=== PATIENT | male | born 1985 | race Caucasian/White ===

== ENCOUNTER 2017-12-04 15:15 | Inpatient (IN) | payer MEDICAID, SELFPAY ==
[2017-12-04] VITALS (8 sets, daily range): BP systolic 123–136; BP diastolic 79–96; PULSE 65–71; RESP 16; TEMP 36.6–37.1; O2SAT 97–100; BMI 24.0; BMI 24.1
--- NOTE | 2017-12-04 15:47 | PCM.HP.STD ---
Problem List (1) History of infective endocarditis Status: Chronic (2) Hypertension Status: Chronic (3) Heroin abuse Status: Chronic History of Present Illness Date of Admission: 12/04/17 Chief Complaint: Opioid withdrawal. The patient is a 32 year old M with past medical history as mentioned above presented to [facility] office because of abdominal cramps, nausea, restlessness and anxiety. The patient has been using heroin for the last 6-7 years, initially was IV heroin and for the last few months, he has been snorting and smoking heroin. His last dose was last night. He complained of abdominal pain, described as abdominal cramps, generalized, mild to moderate, 3-4 out of 10 in severity, not radiating, associated with nausea without vomiting and without aggravating or relieving factors. Also, he complained of headache that has been going on for last 2 days without other associated symptoms. Reported restlessness and anxiety. He has a history of infective endocarditis back in 2015 for which he underwent open heart surgery but without valve replacement. He has a history of hypertension and he has been on Norvasc and losartan but he is not compliant with his medications. 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 At this time, vital signs are stable. He is being admitted for opioid withdrawal for medical stabilization. Past Medical History Past Medical History (Chronic Problems): Chronic Problems History of infective endocarditis (Chronic) Hypertension (Chronic) Heroin abuse (Chronic) Allergies No Known Allergies Allergy (Verified 04/03/17 00:38) Home Medications: Ambulatory Orders Medication Instructions Recorded Amlodipine [Norvasc] 10 mg PO DAILY 01/26/17 Losartan Potassium [Cozaar] 50 mg PO DAILY 01/26/17 Metoprolol Tartrate [Lopressor 100 mg PO BID 01/26/17 (Beta Dante)] Mirtazapine [Remeron] 15 mg PO QHS 01/26/17 Surgical History: - - Open heart surgery for endocarditis. Psychiatric History: No pertinent psych hx Lives: Spouse/ Significant Other Smoking Status: Current every day smoker Alcohol: None Drugs: Heroin - *Family History Maternal History Items: No pertinent history, - Paternal History Items: No pertinent history Review of Systems Constitutional: Denies: Anorexia, Chills, Fever, Weakness Eyes: Denies: Blurred vision, Double vision, Drainage, Redness HEENT: Denies: Difficulty Hearing, Ear Pain, Eye Pain, Nasal Congestion, Sore Throat Cardiovascular: Denies: Chest Pain, Chest Pressure, Chest Tightness, Heaviness, Light Headedness, Palpitations, Paroxysmal Noc. Dyspnea, Syncope Respiratory: Denies: Cough, Pleuritic Pain, Shortness of Breath, Sputum production, Wheezing Gastrointestinal: Reports: Abdominal Pain, Nausea. Denies: Constipation, Diarrhea, Vomiting Genitourinary: Denies: Dysuria, Frequency, Hematuria Musculoskeletal: Denies: Arm Pain, Back Pain, Foot Pain Skin: Denies: Dryness, Rash Neurological: Reports: Headaches. Denies: Balance problems, Double vision, Change in Speech, Slurred speech, Confusion, Focal weakness Psychiatric: Denies: Anxiety, Depression Endocrine: Denies: Change in Body Habitus, Polydipsia VTE Information - Inpt Only VTE Present on Admission: No VTE Mechan Device Prophylaxis: None VTE Pharm Prophylaxis ordered?: No - Physical Exam General: Alert, Oriented x3, Cooperative, No apparent distress HEENT: Atraumatic, PERRLA, EOMI Oral: Moist Mucosa, No Gingival or Mucosal Lesions/ Ulcerations Neck: Supple, No JVD, Negative Carotid Bruits, Trachea Midline, Thyroid Normal Size and Texture Lungs: Clear to auscultation, No rhonchi, No wheeze, No rales Cardiovascular: Regular rate, Regular Rhythm, Normal S1, Normal S2, No murmurs, PMI Normal Abdomen: Bowel Sounds Present, Soft, Non Tender, Non-Distended, No Hepato-splenomegaly Extremities: No clubbing, No cyanosis, No edema Skin: No rashes, No breakdown Lymphatic: No Cervical, Supraclavicular, or Inguinal Adenopathy Neurological: Cranial nerves II-XII grossly intact, Motor Exam 5/5 strength throughout Psych/Mental Status: Normal Affect, Appropriate, Alert and oriented to time, place, person, mood and affect Vital Signs Temp Pulse Resp BP Pulse Ox 97.9 F 70 16 136/96 H 97 12/04/17 15:41 12/04/17 15:42 12/04/17 15:41 12/04/17 15:41 12/04/17 15:41 Oxygen Delivery Method Room Air Finger Stick Blood Glucose 108 Assessment/Plan This is a 32 year-old presented to the [facility] office for symptoms of abdominal cramps, nausea, restless and anxiety in context of using heroin for the last 6-7 years and he is being admitted for opioid withdrawal for medical stabilization. #1 acute opiate withdrawal: Patient has been using heroin injections, snorting as well as smoking for the last 6-7 years, last dose was yesterday. At this time, vital signs are stable. Routine blood work was unremarkable. LFT and lipase were normal. Blood alcohol level was normal. Pro time and INR were normal. Plan: Admit to [facility] floor, urine drug screen, blood culture, initiate [facility] protocol with tapering course of Subutex, as needed Bentyl, Vistaril, a couple more, Zofran, Mirapex and Seroquel. #2 history of infective endocarditis: Status post surgery. Patient stated that he had no valve replacement at that time. 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 He denies fever chills. No evidence of murmur on physical examination. He is afebrile. Plan: Blood culture. #3 hypertension: Blood pressure stable, continue Norvasc, losartan and metoprolol. #4 tobacco abuse: NicoDerm patch daily. #5 heroin abuse: Plan as above. #6 DVT prophylaxis: Low risk patient, no prophylaxis indicated. This note was generated with [employer] dictation software. It may contain incorrect words, spelling, and punctuation that were not noted in checking the note before signing. Code Visit Inpatient E&M: 30164 Init Hosp L2
--- NOTE | 2017-12-04 15:52 | HP.PCM_ITS ---
Problem List (1) History of infective endocarditis Status: Chronic (2) Hypertension Status: Chronic (3) Heroin abuse Status: Chronic History of Present Illness Date of Admission: 12/04/17 Chief Complaint: Opioid withdrawal. The patient is a 32 year old M with past medical history as mentioned above presented to [facility] office because of abdominal cramps, nausea, restlessness and anxiety. The patient has been using heroin for the last 6-7 years, initially was IV heroin and for the last few months, he has been snorting and smoking heroin. His last dose was last night. He complained of abdominal pain, described as abdominal cramps, generalized, mild to moderate, 3- 4 out of 10 in severity, not radiating, associated with nausea without vomiting and without aggravating or relieving factors. Also, he complained of headache that has been going on for last 2 days without other associated symptoms. Reported restlessness and anxiety. He has a history of infective endocarditis back in 2015 for which he underwent open heart surgery but without valve replacement. He has a history of hypertension and he has been on Norvasc and losartan but he is not compliant with his medications. He does not see his PCP or his in house counsel. At this time, vital signs are stable. He is being admitted for opioid withdrawal for medical stabilization. Past Medical History Past Medical History (Chronic Problems): Chronic Problems History of infective endocarditis (Chronic) Hypertension (Chronic) Heroin abuse (Chronic) Allergies No Known Allergies Allergy (Verified 04/03/17 00:38) Home Medications: Ambulatory Orders Medication Instructions Recorded Amlodipine [Norvasc] 10 mg PO DAILY 01/26/17 Losartan Potassium [Cozaar] 50 mg PO DAILY 01/26/17 Metoprolol Tartrate [Lopressor 100 mg PO BID 01/26/17 (Beta Dante)] Mirtazapine [Remeron] 15 mg PO QHS 01/26/17 Surgical History: - - Open heart surgery for endocarditis. Psychiatric History: No pertinent psych hx Lives: Spouse/ Significant Other Smoking Status: Current every day smoker Alcohol: None Drugs: Heroin - *Family History Maternal History Items: No pertinent history, - Paternal History Items: No pertinent history Review of Systems Constitutional: Denies: Anorexia, Chills, Fever, Weakness Eyes: Denies: Blurred vision, Double vision, Drainage, Redness HEENT: Denies: Difficulty Hearing, Ear Pain, Eye Pain, Nasal Congestion, Sore Throat Cardiovascular: Denies: Chest Pain, Chest Pressure, Chest Tightness, Heaviness, Light Headedness, Palpitations, Paroxysmal Noc. Dyspnea, Syncope Respiratory: Denies: Cough, Pleuritic Pain, Shortness of Breath, Sputum production, Wheezing Gastrointestinal: Reports: Abdominal Pain, Nausea. Denies: Constipation, Diarrhea, Vomiting Genitourinary: Denies: Dysuria, Frequency, Hematuria Musculoskeletal: Denies: Arm Pain, Back Pain, Foot Pain Skin: Denies: Dryness, Rash Neurological: Reports: Headaches. Denies: Balance problems, Double vision, Change in Speech, Slurred speech, Confusion, Focal weakness Psychiatric: Denies: Anxiety, Depression Endocrine: Denies: Change in Body Habitus, Polydipsia VTE Information - Inpt Only VTE Present on Admission: No VTE Mechan Device Prophylaxis: None VTE Pharm Prophylaxis ordered?: No - Physical Exam General: Alert, Oriented x3, Cooperative, No apparent distress HEENT: Atraumatic, PERRLA, EOMI Oral: Moist Mucosa, No Gingival or Mucosal Lesions/ Ulcerations Neck: Supple, No JVD, Negative Carotid Bruits, Trachea Midline, Thyroid Normal Size and Texture Lungs: Clear to auscultation, No rhonchi, No wheeze, No rales Cardiovascular: Regular rate, Regular Rhythm, Normal S1, Normal S2, No murmurs, PMI Normal Abdomen: Bowel Sounds Present, Soft, Non Tender, Non-Distended, No Hepato- splenomegaly Extremities: No clubbing, No cyanosis, No edema Skin: No rashes, No breakdown Lymphatic: No Cervical, Supraclavicular, or Inguinal Adenopathy Neurological: Cranial nerves II-XII grossly intact, Motor Exam 5/5 strength throughout Psych/Mental Status: Normal Affect, Appropriate, Alert and oriented to time, place, person, mood and affect Vital Signs Temp Pulse Resp BP Pulse Ox 97.9 F 70 16 136/96 H 97 12/04/17 15:41 12/04/17 15:42 12/04/17 15:41 12/04/17 15:41 12/04/17 15:41 Oxygen Delivery Method Room Air Finger Stick Blood Glucose 108 Assessment/Plan This is a 32 year-old presented to the [facility] office for symptoms of abdominal cramps, nausea, restless and anxiety in context of using heroin for the last 6-7 years and he is being admitted for opioid withdrawal for medical stabilization. #1 acute opiate withdrawal: Patient has been using heroin injections, snorting as well as smoking for the last 6-7 years, last dose was yesterday. At this time, vital signs are stable. Routine blood work was unremarkable. LFT and lipase were normal. Blood alcohol level was normal. Pro time and INR were normal. Plan: Admit to [facility] floor, urine drug screen, blood culture, initiate [facility] protocol with tapering course of Subutex, as needed Bentyl, Vistaril, a couple more, Zofran, Mirapex and Seroquel. #2 history of infective endocarditis: Status post surgery. Patient stated that he had no valve replacement at that time. He is noncompliant, does not follow- up with his PCP or his in house counsel. He denies fever chills. No evidence of murmur on physical examination. He is afebrile. Plan: Blood culture. #3 hypertension: Blood pressure stable, continue Norvasc, losartan and metoprolol. #4 tobacco abuse: NicoDerm patch daily. #5 heroin abuse: Plan as above. #6 DVT prophylaxis: Low risk patient, no prophylaxis indicated. This note was generated with [employer] dictation software. It may contain incorrect words, spelling, and punctuation that were not noted in checking the note before signing. Code Visit Inpatient E&M: 00333 Init Hosp L2
[2017-12-04] MEDS: hydrOXYzine PAM 25 MG Capsule 50 MG PO (16:04)
[2017-12-04] MEDS: Acetaminophen 500 MG Tablet PO (16:04)
--- NOTE | 2017-12-04 16:13 | NURSING ---
called [facility] in [place] to confirm home meds. pt is unaware of which meds he is taking, dosages, and has not taken them recently. per pharmacy, they were last filled in September. ordering prescriber is Dr Beltre for all meds.
[2017-12-04 16:31] LABS: Absolute Lymphocyte Count 1.68 X10^3/ul (0.83-4.51); Absolute Neutrophil Count 5.9 X10^3/uL (2.0-7.7); Basophil# 0.03 X10^3/uL; Basophil% 0.4 % (0-1); Eosinophil# 0.35 X10^3/uL; Eosinophils% 4.2 % (0-5); Hematocrit 43.6 % (40-54); Hemoglobin 14.6 g/dl (13.0-16.5); Lymphocyte # 1.68 X10^3/ul (4.0); Lymphocyte % 19.9 % (19-41); Mean Corp Hgb Conc 33.5 g/gl (32-36); Mean Corpuscular Hgb 29.8 pg (27.0-32.0); Mean Platelet Vol. 11.4 fl (6.2-12.0); Monocyte# 0.45 X10^3/uL; Monocyte% 5.3 % (0-10); Neutrophil # 5.91 X10^3/uL (2.7-7.7); Neutrophil % 70.1 % (47-70); Platelet Count 184 K/mm3 (150-450); RBC Distribution Width CV 13.3 % (11.6-14.6); RBC Distribution Width SD 43.1 fl (35.1-43.9); White Blood Count 8.4 K/mm3 (4.4-11.0)
[2017-12-04 16:33] LABS: POSITIVE COUNT NO; POSITIVE DIFFERENTIAL NO; POSITIVE MORPHOLOGY NO
[2017-12-04 16:46] LABS: AST(SGOT) 25 U/L (15-37); Alanine Aminotransfer ALT/SGPT 52 U/L (16-61); Albumin, Serum 3.9 g/dL (3.2-5.0); Alkaline Phosphatase 106 U/L (45-117); Anion Gap 6 (5-15); BUN 14 mg/dL (7-18); BUN/Creat Ratio 13.3 RATIO (10-20); Calcium,Total 8.7 mg/dL (8.5-10.1); Chloride 105 mmol/L (98-107); Creatinine, Serum 1.05 mg/dL (0.70-1.30); EST Glomerular Filtration Rate 87 mL/min (>60); Est Glom Filt Rate - Afr Amer 105 mL/min (>60); Estimated Creatinine Clearance 114.14 ml/min; Globulin 4.1 g/dL (2.2-4.2); Glucose 92 mg/dL (74-106); Lipase 47 U/L (73-393); Potassium 3.9 mmol/L (3.5-5.1); Sodium Level 139 mmol/L (136-145)
[2017-12-04 16:49] LABS: International Normalized Ratio 1.1; Prothrombin Time (Protime)PT. 13.7 SECONDS (11.7-14.9)
[2017-12-04] MEDS: Buprenorphine HCl 2 MG TAB.SUBL SL (17:33)
[2017-12-04] MEDS: Metoprolol Tartrate 100 MG Tablet PO (22:55)
[2017-12-04] MEDS: Mirtazapine 15 MG Tablet PO (22:56)
[2017-12-04] MEDS: Dicyclomine 10 MG Capsule 20 MG PO (22:56)
[2017-12-04] MEDS: QUEtiapine 25 MG Tablet PO (22:56)
[2017-12-04] MEDS: Pramipexole Di-HCl 0.25 MG Tablet PO (22:56)
[2017-12-04 23:31] LABS: Amphetamine Urine VISTA POSITIVE (<1000 ng/mL); Barbiturate Urine VISTA NEGATIVE (< 200 ng/mL); Benzodiazepine Urine VISTA NEGATIVE (< 200 ng/mL); Cocaine Urine VISTA POSITIVE (< 300 ng/mL); Ecstacy Urine VISTA NEGATIVE (< 500 ng/mL); Methadone Urine VISTA NEGATIVE (< 300 ng/mL); PCP Urine VISTA NEGATIVE (< 25 ng/mL); THC Urine VISTA NEGATIVE (< 50 ng/mL); Vista UDS pH Range 6
[2017-12-05] VITALS (9 sets, daily range): BP systolic 89–117; BP diastolic 55–82; PULSE 61–74; RESP 14–18; TEMP 36.7–37.1
[2017-12-05] MEDS: Buprenorphine HCl 2 MG TAB.SUBL SL ×3 (01:51→16:43)
[2017-12-05] MEDS: Ondansetron ODT 4 MG Tablet PO ×2 (01:51→09:51)
--- NOTE | 2017-12-05 02:06 | NURSING ---
Went in to room to do vitals and withdrawal assessment on patient. Pt verbally abusive cursing at nurse about doing assessment. Patient keeps pushing tray stand almost throwing every thing off of it. Nurse asked Pt to stop and I would move it and he continued to push at it when it was under the bed. When asked Pt for finger to get oxygen saturation Pt threw arm back and hit nurse with arm. Pt asked why we have to do this, and I said we were trying to help him and give him his medications.
[2017-12-05] MEDS: QUEtiapine 25 MG Tablet PO ×2 (06:20→16:39)
[2017-12-05] MEDS: Dicyclomine 10 MG Capsule 20 MG PO ×2 (06:20→16:39)
[2017-12-05] MEDS: Metoprolol Tartrate 100 MG Tablet PO ×2 (09:48→21:02)
[2017-12-05] MEDS: amLODIPine 10 MG Tablet PO (09:48)
[2017-12-05] MEDS: Losartan Potassium 50 MG Tablet PO (09:48)
--- NOTE | 2017-12-05 10:41 | PCM.PN.HOSP ---
Patient Problems: Active and Suspected Problems Opiate withdrawal (Acute) Subjective: Still with some abdominal cramps and restless legs. Feeling somewhat better. Vitals/I&O's: Vital Signs Temp Pulse Resp BP Pulse Ox 37.1 C 64 18 117/73 100 12/05/17 06:14 12/05/17 09:48 12/05/17 06:14 12/05/17 06:14 12/04/17 22:48 Oxygen Delivery Method Room Air Weight: 82.69 kg Body Mass Index (BMI) 24.0 Finger Stick Blood Glucose 108 Intake and Output for Last 24 Hours 12/03/17 12/04/17 12/05/17 23:59 23:59 23:59 Intake Total 620 / 620 Balance 620 / 620 General: Alert HEENT: Atraumatic, Normocephalic Oral: Moist Mucosa Neck: No Nodes, Thyroid Normal Size and Texture Lungs: Clear to auscultation, Normal air movement, No rhonchi, No wheeze Cardiovascular: Regular rate, Regular Rhythm, Normal S1, Normal S2 Abdomen: Bowel Sounds Present, Soft, Non Tender, Non-Distended Extremities: No edema, No Calf Tenderness Psych/Mental Status: Normal Affect, Appropriate Laboratory Results 12/04/17 16:15: WBC 8.4, RBC 4.90, Hgb 14.6, Hct 43.6, MCV 89.0, MCH 29.8, MCHC 33.5, RDW 13.3, RDW Differential 43.1, Plt Count 184, MPV 11.4, Immature Gran % (Auto) 0.100, Neut % (Auto) 70.1 H, Lymph % (Auto) 19.9, [place] % (Auto) 5.3, Eos % (Auto) 4.2, Baso % (Auto) 0.4, Absolute Neuts (auto) 5.9, Absolute Lymphs (auto) 1.68, Total Counted Not Reportable 12/04/17 16:15: PT 13.7, INR 1.1 12/04/17 16:15: Sodium 139, Potassium 3.9, Chloride 105, Carbon Dioxide 28.0, Anion Gap 6, BUN 14, Creatinine 1.05, Estim Creat Clear Calc 114.14, Est GFR (MDRD) Af Amer 105, Est GFR (MDRD) Non-Af 87, BUN/Creatinine Ratio 13.3, Glucose 92, Calcium 8.7, Total Bilirubin 0.30, AST 25, ALT 52, Alkaline Phosphatase 106, Total Protein 8.0, Albumin 3.9, Globulin 4.1, Albumin/Globulin Ratio 1.0, Lipase 47 L 12/04/17 16:15: Ethyl Alcohol 7.0 12/04/17 23:05: Urine Opiates Screen POSITIVE H, Urine Methadone Screen NEGATIVE, Ur Barbiturates Screen NEGATIVE, Ur Phencyclidine Scrn NEGATIVE, Ur Amphetamines Screen POSITIVE H, U Methamphetamin-MDMA NEGATIVE, U Benzodiazepines Scrn NEGATIVE, Urine Cocaine Screen POSITIVE H, U Cannabinoids Screen NEGATIVE, Ur Drug Screen Comment Current Medications Acetaminophen (Tylenol) 500 mg PO Q4H PRN PRN PRN Reason: Temp > 100.4 F Last Admin: 12/04/17 16:04 Dose: 500 mg Amlodipine Besylate (Norvasc) 10 mg PO DAILY [facility] Last Admin: 12/05/17 09:48 Dose: 10 mg Buprenorphine HCl (Buprenorphine Hcl) 4 mg SL Q8H [facility] PRN Reason: Taper Stop: 12/07/17 21:29 Last Admin: 12/05/17 09:51 Dose: 4 mg Dicyclomine HCl (Bentyl) 20 mg PO Q6H PRN PRN PRN Reason: Abdomnial Discomfort Last Admin: 12/05/17 06:20 Dose: 20 mg Hydroxyzine Pamoate (Vistaril Pamoate Capsule) 50 mg PO Q6H PRN PRN PRN Reason: Mild Anxiety (score 1/3) Last Admin: 12/04/17 16:04 Dose: 50 mg Losartan Potassium (Cozaar) 50 mg PO DAILY [facility] Last Admin: 12/05/17 09:48 Dose: 50 mg Methocarbamol (Methocarbamol) 750 mg PO Q6H PRN PRN PRN Reason: Muscle Aches Metoprolol Tartrate (Lopressor (Beta Dante)) 100 mg PO BID [facility] Last Admin: 12/05/17 09:48 Dose: 100 mg Mirtazapine (Remeron) 15 mg PO QHS [facility] Last Admin: 12/04/17 22:56 Dose: 15 mg Ondansetron HCl (Zofran Odt) 4 mg PO Q6H PRN PRN PRN Reason: NAUSEA Last Admin: 12/05/17 09:51 Dose: 4 mg Pramipexole Dihydrochloride (Mirapex) 0.25 mg PO Q12H PRN PRN Reason: RESTLESS LEGS Last Admin: 12/04/17 22:56 Dose: 0.25 mg Quetiapine Fumarate (Seroquel) 25 mg PO Q6H PRN PRN PRN Reason: Moderate Anxiety (score 2/3) Last Admin: 12/05/17 06:20 Dose: 25 mg Medical Necessity - Tobacco Use Smoking Status: Current every day smoker Assessment/Plan All Active Problems Opiate withdrawal (Acute) 1. Acute opiate withdrawal Stable at this time Continue with the Buprenorphine taper. Continue with other meds for other somatic complaints [facility] following to help facilitate outpatient management and referrals Was made aware that patient has some impending court date scheduled. Unclear if patient is pursuing this to essentially avoid that or to show good light that he is trying to improve himself which obviously we hope he is trying to get off of opiates. Code Visit Inpatient E&M: 54478 Subs Hosp L2
--- NOTE | 2017-12-05 10:44 | PN_ITS ---
Patient Problems: Active and Suspected Problems Opiate withdrawal (Acute) Subjective: Still with some abdominal cramps and restless legs. Feeling somewhat better. Vitals/I&O's: Vital Signs Temp Pulse Resp BP Pulse Ox 37.1 C 64 18 117/73 100 12/05/17 06:14 12/05/17 09:48 12/05/17 06:14 12/05/17 06:14 12/04/17 22:48 Oxygen Delivery Method Room Air Weight: 82.69 kg Body Mass Index (BMI) 24.0 Finger Stick Blood Glucose 108 Intake and Output for Last 24 Hours 12/03/17 12/04/17 12/05/17 23:59 23:59 23:59 Intake Total 620 / 620 Balance 620 / 620 General: Alert HEENT: Atraumatic, Normocephalic Oral: Moist Mucosa Neck: No Nodes, Thyroid Normal Size and Texture Lungs: Clear to auscultation, Normal air movement, No rhonchi, No wheeze Cardiovascular: Regular rate, Regular Rhythm, Normal S1, Normal S2 Abdomen: Bowel Sounds Present, Soft, Non Tender, Non-Distended Extremities: No edema, No Calf Tenderness Psych/Mental Status: Normal Affect, Appropriate Laboratory Results 12/04/17 16:15: WBC 8.4, RBC 4.90, Hgb 14.6, Hct 43.6, MCV 89.0, MCH 29.8, MCHC 33.5, RDW 13.3, RDW Differential 43.1, Plt Count 184, MPV 11.4, Immature Gran % (Auto) 0.100, Neut % (Auto) 70.1 H, Lymph % (Auto) 19.9, [place] % (Auto) 5.3, Eos % (Auto) 4.2, Baso % (Auto) 0.4, Absolute Neuts (auto) 5.9, Absolute Lymphs ( auto) 1.68, Total Counted Not Reportable 12/04/17 16:15: PT 13.7, INR 1.1 12/04/17 16:15: Sodium 139, Potassium 3.9, Chloride 105, Carbon Dioxide 28.0, Anion Gap 6, BUN 14, Creatinine 1.05, Estim Creat Clear Calc 114.14, Est GFR ( MDRD) Af Amer 105, Est GFR (MDRD) Non-Af 87, BUN/Creatinine Ratio 13.3, Glucose 92, Calcium 8.7, Total Bilirubin 0.30, AST 25, ALT 52, Alkaline Phosphatase 106 , Total Protein 8.0, Albumin 3.9, Globulin 4.1, Albumin/Globulin Ratio 1.0, Lipase 47 L 12/04/17 16:15: Ethyl Alcohol 7.0 12/04/17 23:05: Urine Opiates Screen POSITIVE H, Urine Methadone Screen NEGATIVE , Ur Barbiturates Screen NEGATIVE, Ur Phencyclidine Scrn NEGATIVE, Ur Amphetamines Screen POSITIVE H, U Methamphetamin-MDMA NEGATIVE, U Benzodiazepines Scrn NEGATIVE, Urine Cocaine Screen POSITIVE H, U Cannabinoids Screen NEGATIVE, Ur Drug Screen Comment Current Medications Acetaminophen (Tylenol) 500 mg PO Q4H PRN PRN PRN Reason: Temp > 100.4 F Last Admin: 12/04/17 16:04 Dose: 500 mg Amlodipine Besylate (Norvasc) 10 mg PO DAILY [facility] Last Admin: 12/05/17 09:48 Dose: 10 mg Buprenorphine HCl (Buprenorphine Hcl) 4 mg SL Q8H [facility] PRN Reason: Taper Stop: 12/07/17 21:29 Last Admin: 12/05/17 09:51 Dose: 4 mg Dicyclomine HCl (Bentyl) 20 mg PO Q6H PRN PRN PRN Reason: Abdomnial Discomfort Last Admin: 12/05/17 06:20 Dose: 20 mg Hydroxyzine Pamoate (Vistaril Pamoate Capsule) 50 mg PO Q6H PRN PRN PRN Reason: Mild Anxiety (score 1/3) Last Admin: 12/04/17 16:04 Dose: 50 mg Losartan Potassium (Cozaar) 50 mg PO DAILY [facility] Last Admin: 12/05/17 09:48 Dose: 50 mg Methocarbamol (Methocarbamol) 750 mg PO Q6H PRN PRN PRN Reason: Muscle Aches Metoprolol Tartrate (Lopressor (Beta Dante)) 100 mg PO BID [facility] Last Admin: 12/05/17 09:48 Dose: 100 mg Mirtazapine (Remeron) 15 mg PO QHS [facility] Last Admin: 12/04/17 22:56 Dose: 15 mg Ondansetron HCl (Zofran Odt) 4 mg PO Q6H PRN PRN PRN Reason: NAUSEA Last Admin: 12/05/17 09:51 Dose: 4 mg Pramipexole Dihydrochloride (Mirapex) 0.25 mg PO Q12H PRN PRN Reason: RESTLESS LEGS Last Admin: 12/04/17 22:56 Dose: 0.25 mg Quetiapine Fumarate (Seroquel) 25 mg PO Q6H PRN PRN PRN Reason: Moderate Anxiety (score 2/3) Last Admin: 12/05/17 06:20 Dose: 25 mg Medical Necessity - Tobacco Use Smoking Status: Current every day smoker Assessment/Plan All Active Problems Opiate withdrawal (Acute) 1. Acute opiate withdrawal * Stable at this time * Continue with the Buprenorphine taper. * Continue with other meds for other somatic complaints * [facility] following to help facilitate outpatient management and referrals * Was made aware that patient has some impending court date scheduled. Unclear if patient is pursuing this to essentially avoid that or to show good light that he is trying to improve himself which obviously we hope he is trying to get off of opiates. Code Visit Inpatient E&M: 21873 Subs Hosp L2
[2017-12-05] MEDS: hydrOXYzine PAM 25 MG Capsule 50 MG PO (21:02)
[2017-12-05] MEDS: Mirtazapine 15 MG Tablet PO (21:03)
[2017-12-06] VITALS (8 sets, daily range): BP systolic 112–118; BP diastolic 69–77; PULSE 57–65; RESP 16–18; TEMP 36.4–37.2; O2SAT 98–100
[2017-12-06] MEDS: Buprenorphine HCl 2 MG TAB.SUBL SL ×3 (00:32→21:41)
[2017-12-06] MEDS: Metoprolol Tartrate 100 MG Tablet PO ×2 (09:26→21:41)
[2017-12-06] MEDS: Losartan Potassium 50 MG Tablet PO (09:26)
[2017-12-06] MEDS: amLODIPine 10 MG Tablet PO (09:27)
[2017-12-06] MEDS: hydrOXYzine PAM 25 MG Capsule 50 MG PO ×2 (09:33→21:41)
--- NOTE | 2017-12-06 11:25 | PN_ITS ---
Patient Problems: Active and Suspected Problems Opiate withdrawal (Acute) Subjective: Better overall. Restless leg symptoms are resolved. Still with some abdominal cramping. Tolerating diet. Vitals/I&O's: Vital Signs Temp Pulse Resp BP Pulse Ox 37.2 C 57 L 18 116/69 100 12/06/17 09:24 12/06/17 09:26 12/06/17 09:24 12/06/17 09:26 12/06/17 09:24 Oxygen Delivery Method Room Air Weight: 82.69 kg Body Mass Index (BMI) 24.0 Finger Stick Blood Glucose 108 Intake and Output for Last 24 Hours 12/04/17 12/05/17 12/06/17 23:59 23:59 23:59 Intake Total 620 / 620 620 / 620 Balance 620 / 620 620 / 620 General: Alert, No apparent distress HEENT: Atraumatic, Normocephalic Oral: Moist Mucosa Neck: No Nodes, Thyroid Normal Size and Texture Lungs: Clear to auscultation, Normal air movement, No rhonchi, No wheeze Cardiovascular: Regular rate, Regular Rhythm, Normal S1, Normal S2, No murmurs Abdomen: Bowel Sounds Present, Soft, Non Tender, Non-Distended, No Hepato- splenomegaly Skin: No rashes, No breakdown Psych/Mental Status: Normal Affect, Appropriate Current Medications Acetaminophen (Tylenol) 500 mg PO Q4H PRN PRN PRN Reason: Temp > 100.4 F Last Admin: 12/04/17 16:04 Dose: 500 mg Amlodipine Besylate (Norvasc) 10 mg PO DAILY [facility] Last Admin: 12/06/17 09:27 Dose: 10 mg Buprenorphine HCl (Buprenorphine Hcl) 2 mg SL Q12H [facility] PRN Reason: Taper Stop: 12/07/17 21:29 Last Admin: 12/06/17 09:26 Dose: 2 mg Dicyclomine HCl (Bentyl) 20 mg PO Q6H PRN PRN PRN Reason: Abdomnial Discomfort Last Admin: 12/05/17 16:39 Dose: 20 mg Hydroxyzine Pamoate (Vistaril Pamoate Capsule) 50 mg PO Q6H PRN PRN PRN Reason: Mild Anxiety (score 1/3) Last Admin: 12/06/17 09:33 Dose: 50 mg Losartan Potassium (Cozaar) 50 mg PO DAILY [facility] Last Admin: 12/06/17 09:26 Dose: 50 mg Methocarbamol (Methocarbamol) 750 mg PO Q6H PRN PRN PRN Reason: Muscle Aches Metoprolol Tartrate (Lopressor (Beta Dante)) 100 mg PO BID [facility] Last Admin: 12/06/17 09:26 Dose: 100 mg Mirtazapine (Remeron) 15 mg PO QHS [facility] Last Admin: 12/05/17 21:03 Dose: 15 mg Nicotine (Nicoderm Cq (Pbkc)) 14 mg TRANSDERM. DAILY [facility] Last Admin: 12/06/17 09:27 Dose: 14 mg Ondansetron HCl (Zofran Odt) 4 mg PO Q6H PRN PRN PRN Reason: NAUSEA Last Admin: 12/05/17 09:51 Dose: 4 mg Pramipexole Dihydrochloride (Mirapex) 0.25 mg PO Q12H PRN PRN Reason: RESTLESS LEGS Last Admin: 12/04/17 22:56 Dose: 0.25 mg Quetiapine Fumarate (Seroquel) 25 mg PO Q6H PRN PRN PRN Reason: Moderate Anxiety (score 2/3) Last Admin: 12/05/17 16:39 Dose: 25 mg Medical Necessity - Tobacco Use Smoking Status: Current every day smoker Assessment/Plan All Active Problems Opiate withdrawal (Acute) 1. Acute opiate withdrawal * Stable at this time * Continue with the Buprenorphine taper. * Continue with other meds for other somatic complaints * [facility] following to help facilitate outpatient management and referrals * Was made aware that patient has some impending court date scheduled. Unclear if patient is pursuing this to essentially avoid that or to show good light that he is trying to improve himself which obviously we hope he is trying to get off of opiates. * Agents last date will be on December 07. After which he will be discharged. Code Visit Inpatient E&M: 44248 Subs Hosp L2
[2017-12-06] MEDS: Acetaminophen 500 MG Tablet PO (21:40)
[2017-12-06] MEDS: Mirtazapine 15 MG Tablet PO (21:40)
[2017-12-07 02:14] VITALS: BP 113/80; PULSE 57; RESP 18; TEMP 36.6
[2017-12-07] MEDS: Ondansetron ODT 4 MG Tablet PO (02:20)
[2017-12-07 09:26] VITALS: BP 119/84; PULSE 61; RESP 16; TEMP 36.6; O2SAT 100
[2017-12-07 09:29] VITALS: PULSE 61
[2017-12-07] MEDS: Buprenorphine HCl 2 MG TAB.SUBL SL (09:29)
[2017-12-07] MEDS: amLODIPine 10 MG Tablet PO (09:29)
[2017-12-07] MEDS: Metoprolol Tartrate 100 MG Tablet PO (09:29)
[2017-12-07] MEDS: Losartan Potassium 50 MG Tablet PO (09:29)
--- NOTE | 2017-12-07 10:44 | PCM.PN.HOSP ---
Patient Problems: Active and Suspected Problems Opiate withdrawal (Acute) Subjective: still with some abdominal cramps, but otherwise, feeling well. Vitals/I&O's: Vital Signs Temp Pulse Resp BP Pulse Ox 36.6 C 61 16 119/84 H 100 12/07/17 09:26 18 09:29 12/07/17 09:26 12/07/17 09:26 12/07/17 09:26 Oxygen Delivery Method Room Air Weight: 82.69 kg Body Mass Index (BMI) 24.0 Finger Stick Blood Glucose 108 Intake and Output for Last 24 Hours 12/05/17 12/06/17 12/07/17 23:59 23:59 23:59 Intake Total 620 / 620 1500 / 1500 640 / 640 Balance 620 / 620 1500 / 1500 640 / 640 General: Alert, No apparent distress HEENT: Atraumatic, Normocephalic Neck: No Nodes, Thyroid Normal Size and Texture Lungs: Clear to auscultation, Normal air movement, No rhonchi, No wheeze Cardiovascular: Regular rate, Regular Rhythm, Normal S1, Normal S2, No murmurs Abdomen: Bowel Sounds Present, Soft, Non Tender, Non-Distended, No Hepato-splenomegaly Extremities: No edema, No Calf Tenderness Psych/Mental Status: Normal Affect, Appropriate Microbiology Past 72 Hours 12/04/17 16:50 Blood Culture (Wb) - Anticubital Left Blood Culture - Preliminary No growth in 48 hours. 12/04/17 16:15 Blood Culture (Wb) - Anticubital Right Blood Culture - Preliminary No growth in 48 hours. Current Medications Acetaminophen (Tylenol) 500 mg PO Q4H PRN PRN PRN Reason: Temp > 100.4 F Last Admin: 12/06/17 21:40 Dose: 500 mg Amlodipine Besylate (Norvasc) 10 mg PO DAILY [facility] Last Admin: 12/07/17 09:29 Dose: 10 mg Buprenorphine HCl (Buprenorphine Hcl) 2 mg SL Q12H [facility] PRN Reason: Taper Stop: 12/07/17 21:29 Last Admin: 12/07/17 09:29 Dose: 2 mg Dicyclomine HCl (Bentyl) 20 mg PO Q6H PRN PRN PRN Reason: Abdomnial Discomfort Last Admin: 12/05/17 16:39 Dose: 20 mg Hydroxyzine Pamoate (Vistaril Pamoate Capsule) 50 mg PO Q6H PRN PRN PRN Reason: Mild Anxiety (score 1/3) Last Admin: 12/06/17 21:41 Dose: 50 mg Losartan Potassium (Cozaar) 50 mg PO DAILY [facility] Last Admin: 12/07/17 09:29 Dose: 50 mg Methocarbamol (Methocarbamol) 750 mg PO Q6H PRN PRN PRN Reason: Muscle Aches Metoprolol Tartrate (Lopressor (Beta Dante)) 100 mg PO BID [facility] Last Admin: 12/07/17 09:29 Dose: 100 mg Mirtazapine (Remeron) 15 mg PO QHS [facility] Last Admin: 12/06/17 21:40 Dose: 15 mg Nicotine (Nicoderm Cq (Pbkc)) 14 mg TRANSDERM. DAILY [facility] Last Admin: 12/07/17 09:29 Dose: 14 mg Ondansetron HCl (Zofran Odt) 4 mg PO Q6H PRN PRN PRN Reason: NAUSEA Last Admin: 12/07/17 02:20 Dose: 4 mg Pramipexole Dihydrochloride (Mirapex) 0.25 mg PO Q12H PRN PRN Reason: RESTLESS LEGS Last Admin: 12/04/17 22:56 Dose: 0.25 mg Quetiapine Fumarate (Seroquel) 25 mg PO Q6H PRN PRN PRN Reason: Moderate Anxiety (score 2/3) Last Admin: 12/05/17 16:39 Dose: 25 mg Medical Necessity - Tobacco Use Smoking Status: Current every day smoker Assessment/Plan All Active Problems Opiate withdrawal (Acute) 1. Acute opiate withdrawal Stable at this time Continue with the Buprenorphine taper. Continue with other meds for other somatic complaints [facility] following to help facilitate outpatient management and referrals Was made aware that patient has some impending court date scheduled. Unclear if patient is pursuing this to essentially avoid that or to show good light that he is trying to improve himself which obviously we hope he is trying to get off of opiates. Discharge today. Will give script for Bentyl and Zofran.
--- NOTE | 2017-12-07 10:51 | PN_ITS ---
Patient Problems: Active and Suspected Problems Opiate withdrawal (Acute) Subjective: still with some abdominal cramps, but otherwise, feeling well. Vitals/I&O's: Vital Signs Temp Pulse Resp BP Pulse Ox 36.6 C 61 16 119/84 H 100 12/07/17 09:26 18 09:29 12/07/17 09:26 12/07/17 09:26 12/07/17 09:26 Oxygen Delivery Method Room Air Weight: 82.69 kg Body Mass Index (BMI) 24.0 Finger Stick Blood Glucose 108 Intake and Output for Last 24 Hours 12/05/17 12/06/17 12/07/17 23:59 23:59 23:59 Intake Total 620 / 620 1500 / 1500 640 / 640 Balance 620 / 620 1500 / 1500 640 / 640 General: Alert, No apparent distress HEENT: Atraumatic, Normocephalic Neck: No Nodes, Thyroid Normal Size and Texture Lungs: Clear to auscultation, Normal air movement, No rhonchi, No wheeze Cardiovascular: Regular rate, Regular Rhythm, Normal S1, Normal S2, No murmurs Abdomen: Bowel Sounds Present, Soft, Non Tender, Non-Distended, No Hepato- splenomegaly Extremities: No edema, No Calf Tenderness Psych/Mental Status: Normal Affect, Appropriate Microbiology Past 72 Hours 12/04/17 16:50 Blood Culture (Wb) - Anticubital Left Blood Culture - Preliminary No growth in 48 hours. 12/04/17 16:15 Blood Culture (Wb) - Anticubital Right Blood Culture - Preliminary No growth in 48 hours. Current Medications Acetaminophen (Tylenol) 500 mg PO Q4H PRN PRN PRN Reason: Temp > 100.4 F Last Admin: 12/06/17 21:40 Dose: 500 mg Amlodipine Besylate (Norvasc) 10 mg PO DAILY [facility] Last Admin: 12/07/17 09:29 Dose: 10 mg Buprenorphine HCl (Buprenorphine Hcl) 2 mg SL Q12H [facility] PRN Reason: Taper Stop: 12/07/17 21:29 Last Admin: 12/07/17 09:29 Dose: 2 mg Dicyclomine HCl (Bentyl) 20 mg PO Q6H PRN PRN PRN Reason: Abdomnial Discomfort Last Admin: 12/05/17 16:39 Dose: 20 mg Hydroxyzine Pamoate (Vistaril Pamoate Capsule) 50 mg PO Q6H PRN PRN PRN Reason: Mild Anxiety (score 1/3) Last Admin: 12/06/17 21:41 Dose: 50 mg Losartan Potassium (Cozaar) 50 mg PO DAILY [facility] Last Admin: 12/07/17 09:29 Dose: 50 mg Methocarbamol (Methocarbamol) 750 mg PO Q6H PRN PRN PRN Reason: Muscle Aches Metoprolol Tartrate (Lopressor (Beta Dante)) 100 mg PO BID [facility] Last Admin: 12/07/17 09:29 Dose: 100 mg Mirtazapine (Remeron) 15 mg PO QHS [facility] Last Admin: 12/06/17 21:40 Dose: 15 mg Nicotine (Nicoderm Cq (Pbkc)) 14 mg TRANSDERM. DAILY [facility] Last Admin: 12/07/17 09:29 Dose: 14 mg Ondansetron HCl (Zofran Odt) 4 mg PO Q6H PRN PRN PRN Reason: NAUSEA Last Admin: 12/07/17 02:20 Dose: 4 mg Pramipexole Dihydrochloride (Mirapex) 0.25 mg PO Q12H PRN PRN Reason: RESTLESS LEGS Last Admin: 12/04/17 22:56 Dose: 0.25 mg Quetiapine Fumarate (Seroquel) 25 mg PO Q6H PRN PRN PRN Reason: Moderate Anxiety (score 2/3) Last Admin: 12/05/17 16:39 Dose: 25 mg Medical Necessity - Tobacco Use Smoking Status: Current every day smoker Assessment/Plan All Active Problems Opiate withdrawal (Acute) 1. Acute opiate withdrawal * Stable at this time * Continue with the Buprenorphine taper. * Continue with other meds for other somatic complaints * [facility] following to help facilitate outpatient management and referrals * Was made aware that patient has some impending court date scheduled. Unclear if patient is pursuing this to essentially avoid that or to show good light that he is trying to improve himself which obviously we hope he is trying to get off of opiates. * Discharge today. Will give script for Bentyl and Zofran.
--- NOTE | 2017-12-07 10:53 | PCM.DC ---
- Discharge Diagnoses Current Active Problems: Current Active and Chronic Problems Opiate withdrawal (Acute) History of infective endocarditis (Chronic) Hypertension (Chronic) You will use the following diet at home:: No restrictions Your food should be the consistency of: Regular Your liquids should be the consistency of: Regular/Thin Discharge Activity: Return to Normal Activity Allergies/Adverse Reactions: Allergies No Known Allergies Allergy (Verified 04/03/17 00:38) Medications to take at Discharge Amlodipine [Norvasc] 10 mg PO DAILY 01/26/17 Losartan Potassium [Cozaar] 50 mg PO DAILY 01/26/17 Metoprolol Tartrate [Lopressor (beta kamar)] 100 mg PO BID 01/26/17 Mirtazapine [Remeron] 15 mg PO QHS 01/26/17 Dicyclomine HCl [Bentyl] 20 mg PO Q6H PRN PRN #20 cap 12/07/17 Ondansetron [Zofran Odt] 4 mg PO Q6H PRN PRN #20 tab 12/07/17 The following prescriptions were given: Dicyclomine HCl [Bentyl] 20 mg PO Q6H PRN PRN #20 cap PRN Reason: Abdomnial Discomfort Ondansetron [Zofran Odt] 4 mg PO Q6H PRN PRN #20 tab PRN Reason: NAUSEA Primary Care Physician: Nikia Beltre MD [Primary Care Provider] - Proposed Discharge Date: 12/07/17
--- NOTE | 2017-12-07 10:56 | DS.PCM_ITS ---
Discharge Date and Diagnosis - Problem List Patient Problems: Active and Suspected Problems Opiate withdrawal (Acute) Date of Admission: 12/04/17 Date of Discharge: 12/07/17 - Primary Discharge Diagnosis Active and Suspected Problems Opiate withdrawal (Acute) - Secondary Discharge Diagnosis Chronic Problems History of infective endocarditis (Chronic) Hypertension (Chronic) Heroin abuse (Chronic) Hospital Course and Treatment Operations: None Procedures: None Summary of Care Provided: The patient is a 32 year old M admitted via [facility] for acute opiate withdrawal Acute opiate withdrawal * Stable at this time * Continue with the Buprenorphine taper. * Continue with other meds for other somatic complaints * [facility] following to help facilitate outpatient management and referrals * Was made aware that patient has some impending court date scheduled. Unclear if patient is pursuing this to essentially avoid that or to show good light that he is trying to improve himself which obviously we hope he is trying to get off of opiates. * Discharge today. Will give script for Bentyl and Zofran.[] Discharge Diet: No Restrictions Discharge Activity: Return to Normal Activity Home Medications: Medications to take at Discharge Amlodipine [Norvasc] 10 mg PO DAILY 01/26/17 Losartan Potassium [Cozaar] 50 mg PO DAILY 01/26/17 Metoprolol Tartrate [Lopressor (beta kamar)] 100 mg PO BID 01/26/17 Mirtazapine [Remeron] 15 mg PO QHS 01/26/17 Dicyclomine HCl [Bentyl] 20 mg PO Q6H PRN PRN #20 cap 12/07/17 Ondansetron [Zofran Odt] 4 mg PO Q6H PRN PRN #20 tab 12/07/17 Following Prescrptions Were Given to Patient: Dicyclomine HCl [Bentyl] 20 mg PO Q6H PRN PRN #20 cap PRN Reason: Abdomnial Discomfort Ondansetron [Zofran Odt] 4 mg PO Q6H PRN PRN #20 tab PRN Reason: NAUSEA Primary Care Physician: Nikia Beltre MD [Primary Care Provider] - Disposition: Home Minutes spent on discharge:: 24 Patient Condition:: Good Medical Necessity - Tobacco Use Smoking Status: Current every day smoker Meaningful Use Info Meaningful Use Diagnoses (Choose all that apply): None applicable Code Visit Inpatient E&M: 58356 Disch Hosp
== END 2017-12-07 11:04 | disposition home or self-care (01) | DRG 435 ==
LOC: MS2 12-05 15:25 → MS3 12-05 15:31
PROVIDERS: Admitting Provider Hospitalist; Family Provider Internal Medicine; PCP Internal Medicine
DX: F11.23 Opioid dependence with withdrawal (principal); I10 Essential (primary) hypertension; Z86.79 Personal history of other diseases of the circulatory system; Z72.0 Tobacco use
CPT/HCPCS: 80053; 80307; 80320; 83690; 85025; 85610; 87040; 93005; 97802; G0480

== ENCOUNTER 2020-01-31 10:39 | Emergency (ER) | payer MEDICAID, SELFPAY ==
[2020-01-31 10:40] VITALS: BP 139/82; PULSE 90; RESP 17; TEMP 36.1; O2SAT 95; BMI 24.4
--- NOTE | 2020-01-31 10:40 | ED.VIS.GEN ---
History of Present Illness Chief Complaint: Eye Problem Informant: Patient Narrative: 34-year-old male presents with left eye irritation. He states that he woke up this morning with matted eyelid on the left. He does not have any visual complaints. He is a noncontact wearer. He denies any foreign bodies that is been in his eyes. States he has been rubbing his eyes slightly. Past Medical History - Allergies and Home Meds Allergies/Adverse Reactions: Allergies No Known Allergies Allergy (Verified 01/31/20 10:39) Primary Care Physician: Nikia Beltre MD [STAFF PHYSICIAN] - Prior records reviewed: Yes Surgical History: noncontributory, - - Open heart surgery for endocarditis. Smoking Status: Current every day smoker Alcohol: None Drugs: None - Family History Maternal Family History: Reports: No pertinent history, - Additional Family History: no heroin abuse Paternal Family History: Reports: No pertinent history Review of Systems General: Denies: Chills, Fever, Sweats Eyes: Reports: - - Eye redness and matting of eyelids in the left eye.. Denies: Visual changes - bilaterally, Diplopia ENT: Denies: Rhinorrhea, Sore throat Cardiovascular: Denies: Chest pain, Palpitations Respiratory: Denies: Dyspnea, Cough, Dyspnea on exertion Gastrointestinal: Denies: Abdominal pain, Nausea, Vomiting, Diarrhea, Melena, Hematochezia Genitourinary: Denies: Dysuria, Hematuria, Frequency Musculoskeletal: Denies: Back pain, Extremity Pain Skin: Denies: Rash, Wounds Neurological: Denies: Headache, Weakness, Numbness Physical Exam General: Well nourished, Well developed, No Acute Distress Head: Normocephalic, Atraumatic Eyes: Perrl, EOMI, - - Scleral injection and crusting of the eyelids. ENT: Moist mucous membranes, No rhinorrhea Neck: Supple, Nontender Cardiovascular: Regular rate, Regular rhythm, No murmurs Respiratory: No distress, CTA bilaterally, Chest nontender Abdomen: Soft, Nontender, Nondistended, Normal bowel sounds Back: Nontender, Normal Inspection Extremities: Nontender, No edema Skin: Normal color, No rash Neurological: Alert, Oriented x3, Cranial nerves II-XII grossly intact, Normal Strength, Normal Sensation Psychological: Normal affect, Normal Mood Diagnostic/Tx/Re-eval - Medical Decision Making Patient's left eye was anesthetized with tetracaine. It was then stained with fluorescein. It was visualized under slit lamp and there were no corneal abrasions. There did not appear to be any foreign bodies. Patient will be treated like conjunctivitis. He is given antibiotics for home. He is given return precautions. Impression: 1. Left eye conjunctivitis ED Disposition - Plan for ED Patient: Disposition: Home or Assisted Living Instructions: ED Conjunctivitis Bacterial Prescriptions: Ketorolac Tromethamine [Acular] 1 drp OP BID #1 drops Prescription Printed Bacitracin/Polymyxin B Sulfate [Bacitracin-Polymyxin Eye Oint] 3.5 gm OP BID 5 Days oint...g. Prescription Printed Referrals: Nikia Beltre MD [STAFF PHYSICIAN] -
[2020-01-31] MEDS: Tetracaine 0.5% Ophthalmic Bottle 1 DRP LEFT EYE (11:21)
[2020-01-31] MEDS: Fluorescein 1 MG STRIP 1 STRIP LEFT EYE (11:21)
== END 2020-01-31 11:26 | disposition home or self-care (01) ==
PROVIDERS: Emergency Provider Student in an Organized Health Care Education/Training Program
DX: H10.9 Unspecified conjunctivitis (principal); F17.200 Nicotine dependence, unspecified, uncomplicated
CPT/HCPCS: 99282

== ENCOUNTER 2020-02-01 21:37 | Inpatient (IN) | payer MEDICAID, SELFPAY ==
[2020-01-31 10:40] VITALS: BMI 24.4
[2020-02-01 21:37] VITALS: BP 159/101; PULSE 82; RESP 18; TEMP 36.6; O2SAT 100; BMI 25.3
--- NOTE | 2020-02-01 21:52 | ED.DCSUM_ITS ---
- ER Visit Summary Date of Service: 02/01/20 Chief Complaint: Heroin detox History of Present Illness: The patient is a 34 M who presents with heroin detox. Patient states he uses approximately 2 g/day. Patient states he started injecting recently. Patient states his last use was this morning. Patient d enies any suicidal or homicidal ideations. Patient denies any nausea, vomiting, diarrhea. Patient denies any fevers or chills. Patient denies any seizures or tremors. Patient denies any palpitations. Patient denies any rashes. Patient states she has been through detox in the past but states it has been years ago. Physical Examination: Vital signs are stable. Patient is afebrile. Patient is in no acute distress. Oral mucosa is pink and moist. Neck is supple. Trachea is midline. There is no JVD noted. Heart was regular rate and rhythm. Lungs are clear and equal bilaterally. Abdomen is soft. Bowel sounds are normal. There is no tenderness. There is no rebound or guarding noted. Skin is warm dry. Cranial nerves II through XII are intact. There are no focal motor or sensory deficits noted. Extremities are intact. There are some track hernandez noted in the antecubital fossa bilaterally but there is no evidence of any abscess. Test Results: CBC, comprehensive metabolic profile, urinalysis, and serum alcohol were obtained and were essentially within normal limits. Urine testing was ordered and is pending. Emergency Department Course and Treatment: Case was discussed with the hospitalist, Dr. Parkinson. She will admit the patient to her service. Patient understood and was agreeable with the plan. All questions were answered. Disposition: Admit to hospital Impression: 1. Heroin withdrawal This note was generated with [employer] dictation software. It may contain incorrect words, spelling, and punctuation that were not noted in review of the chart prior to signing ED Disposition - Plan for ED Patient: Disposition: Acute Care Hospital [facility] Diagnosis: Opiate withdrawal
[2020-02-01 23:02] LABS: Bacteria 0 SEEN /hpf (None Seen); Mucous, Urine 0 SEEN /hpf (<or=2+); Red Blood Cells-Urine 0 SEEN /hpf (0-5); Squamous Epithelial Cells - UA 0 SEEN /hpf (0-5)
[2020-02-01 23:04] LABS: Color, Urine Yellow (Yellow); Glucose, Dipstick Normal (Normal); Ketone-Dipstick 5 mg/dl (Negative); Leukocyte Esterase-Dipstick 25 /ul (Negative); Nitrite-Dipstick Negative (Negative); Occult Blood-Urine Negative /ul (Negative); Protein-Dipstick 15 mg/dl (Negative); Urine Clarity Clear (Clear); Urine Urobilinogen 12 mg/dl (Normal)
[2020-02-01 23:05] LABS: Absolute Lymphocyte Count 1.17 X10^3/uL (0.83-4.51); Absolute Neutrophil Count 5.5 X10^3/uL (2.0-7.7); Basophil# 0.03 X10^3/uL; Basophil% 0.4 % (0-1); Eosinophil# 0.33 X10^3/uL; Eosinophils% 4.3 % (0-5); Hematocrit 43.9 % (40-54); Hemoglobin 14.9 g/dL (13.0-16.5); Lymphocyte # 1.17 X10^3/ul (4.0); Lymphocyte % 15.3 % (19-41); Mean Corp Hgb Conc 33.9 g/dL (32-36); Mean Corpuscular Hgb 30.5 pg (27.0-32.0); Mean Platelet Vol. 11.5 fl (6.2-12.0); Monocyte# 0.59 X10^3/uL; Monocyte% 7.7 % (0-10); NRBC Flagged by Analyzer 0 % (0-5); Neutrophil % 71.9 % (47-70); Platelet Count 255 K/mm3 (150-450); RBC Distribution Width CV 12.3 % (11.6-14.6); RBC Distribution Width SD 40.4 fl (35.1-43.9); Red Blood Count 4.88 M/mm3 (4.6-6.2); White Blood Count 7.7 K/mm3 (4.4-11.0)
[2020-02-01 23:05] LABS: Urine Bilirubin Dipstick 1 mg/dL (Negative)
[2020-02-01 23:11] LABS: White Blood Cells 0-5 SEEN /hpf (0-5)
[2020-02-01 23:12] LABS: Alcohol, Blood (Medical)-Serum < 3.0 mg/dL
[2020-02-01 23:16] LABS: ALB/GLOB Ratio 0.8 RATIO (0.9-2.4); AST(SGOT) 18 U/L (15-37); Alanine Aminotransfer ALT/SGPT 41 U/L (16-61); Albumin, Serum 3.6 g/dL (3.2-5.0); Alkaline Phosphatase 84 U/L (45-117); Anion Gap 3 (5-15); BUN 19 mg/dL (7-18); BUN/Creat Ratio 16.5 RATIO (10-20); Calcium,Total 8.8 mg/dL (8.5-10.1); Chloride 105 mmol/L (98-107); Creatinine, Serum 1.15 mg/dL (0.70-1.30); EST Glomerular Filtration Rate 77 mL/min (>60); Est Glom Filt Rate - Afr Amer 93 mL/min (>60); Estimated Creatinine Clearance 99.34 ml/min; Globulin 4.8 g/dL (2.2-4.2); Glucose 140 mg/dL (74-106); Lipase 33 U/L (73-393); Protein, Total 8.4 g/dL (6.4-8.2); Sodium Level 139 mmol/L (136-145)
[2020-02-01 23:23] LABS: Amphetamine Urine VISTA POSITIVE (<1000 ng/mL); Barbiturate Urine VISTA NEGATIVE (< 200 ng/mL); Benzodiazepine Urine VISTA NEGATIVE (< 200 ng/mL); Cocaine Urine VISTA NEGATIVE (< 300 ng/mL); Ecstacy Urine VISTA POSITIVE (< 500 ng/mL); Methadone Urine VISTA NEGATIVE (< 300 ng/mL); PCP Urine VISTA NEGATIVE (< 25 ng/mL); THC Urine VISTA NEGATIVE (< 50 ng/mL); Vista UDS pH Range 6
[2020-02-01 23:32] VITALS: BP 136/90; PULSE 80; RESP 16; TEMP 36.6
--- NOTE | 2020-02-01 23:41 | PCM.HP.STD ---
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 He was admitted through the ED on 02/01/2020 for acute opiate withdrawal. Patient states he usually uses IV heroin and also snorts it and the last time he used about this morning. He has been using it for many years and states he underwent detox about 2 years ago but started use it again in August 2019. He complained of some chills as well as tremors and increased sweating as well as abdominal pain and cramping. He denied any nausea or vomiting or diarrhea. Review systems otherwise negative. In the ED, vitals show temperature of 98 Fahrenheit with blood pressure of 136/90, pulse rate of 80 respiratory rate of 16. Pulse ox was 100% on room air. Chemistry was essentially unremarkable and CBC was also unremarkable. Urine tox screen was positive for opiates as well as amphetamines and methamphetamines. Alcohol level was less than 3. He has been admitted to be managed for acute opioid withdrawal. [] Past Medical History Past Medical History (Chronic Problems): Chronic Problems History of infective endocarditis (Chronic) Hypertension (Chronic) Heroin abuse (Chronic) Allergies No Known Allergies Allergy (Verified 01/31/20 10:39) Home Medications: Ambulatory Orders Medication Instructions Recorded Bacitracin/Polymyxin B Sulfate 3.5 gm OP BID 5 Days oint...g. 01/31/20 [Bacitracin-Polymyxin Eye Oint] Surgical History: noncontributory, - - Open heart surgery for endocarditis. Psychiatric History: No pertinent psych hx Lives: With Family Smoking Status: Current every day smoker Tobacco Use: Cigarettes Alcohol: None Drugs: Heroin - *Family History Maternal History Items: No pertinent history, - Paternal History Items: No pertinent history Review of Systems Constitutional: Reports: Chills, Malaise. Denies: Anorexia, Fever, Night Sweats, Weakness, Fatigue Eyes: Denies: Blurred vision HEENT: Denies: Head Aches, Sinus Congestion, Sinus Drainage Cardiovascular: Denies: Chest Pain, Palpitations Respiratory: Denies: Cough, Shortness of Breath, Shortness of breath at rest, Shortness of breath upon exertion, Sputum production Gastrointestinal: Reports: Abdominal Pain, Nausea. Denies: Vomiting Genitourinary: Denies: Dysuria Musculoskeletal: Denies: Joint Pain, Joint Tenderness Skin: Denies: Rash, Wounds Neurological: Denies: Numbness, Tingling, Focal weakness Psychiatric: Denies: Anxiety, Depression, Homicidal Ideations, Suicidal Ideations Hematologic/ Lymphatic: Denies: Easy Bruising, Easy Bleeding VTE Information - Inpt Only VTE Present on Admission: No VTE Pharm Prophylaxis ordered?: No Reason prophylaxis not ordered:: Treatment Not Indicated Patient Problems: Active and Suspected Problems Opiate withdrawal (Acute) - Physical Exam Vitals/I&O's: Vital Signs Temp Pulse Resp BP Pulse Ox 98 F 80 16 136/90 H 100 02/01/20 23:32 02/01/20 23:32 02/01/20 23:32 02/01/20 23:32 02/01/20 21:37 Oxygen Delivery Method Room Air Weight: 186 lb 15.232 oz Body Mass Index (BMI) 25.3 Finger Stick Blood Glucose 108 General: Alert, Oriented x3, Cooperative, No apparent distress HEENT: Atraumatic, PERRLA, EOMI, Normocephalic Oral: Moist Mucosa Neck: Supple, No JVD, Negative Carotid Bruits Lungs: Clear to auscultation, Normal air movement, No rhonchi, No wheeze, No rales Cardiovascular: Regular rate, Regular Rhythm, Normal S1, Normal S2, No murmurs Abdomen: Bowel Sounds Present, Soft, Non Tender, Non-Distended, No Hepato-splenomegaly Extremities: No clubbing, No cyanosis, No edema, Capillary Refill Less than 3 Seconds Skin: No rashes, No breakdown Musculoskeletal: No Tenderness to Palpation of Joints or Extremities Lymphatic: No Cervical, Supraclavicular, or Inguinal Adenopathy Neurological: Cranial nerves II-XII grossly intact, Neuro grossly intact, Motor Exam 5/5 strength throughout Psych/Mental Status: Normal Affect, Appropriate, Alert and oriented to time, place, person, mood and affect Laboratory Results 02/01/20 22:50: WBC 7.7, RBC 4.88, Hgb 14.9, Hct 43.9, MCV 90.0, MCH 30.5, MCHC 33.9, RDW Std Deviation 40.4, RDW Coeff of [place] 12.3, Plt Count 255, MPV 11.5, Immature Gran % (Auto) 0.400, Neut % (Auto) 71.9 H, Lymph % (Auto) 15.3 L, [place] % (Auto) 7.7, Eos % (Auto) 4.3, Baso % (Auto) 0.4, Absolute Neuts (auto) 5.5, Absolute Lymphs (auto) 1.17, Nucleated RBC % 0 02/01/20 22:50: Sodium 139, Potassium 4.0, Chloride 105, Carbon Dioxide 31.0, Anion Gap 3 L, BUN 19 H, Creatinine 1.15, Estim Creat Clear Calc 99.34, Est GFR (MDRD) Af Amer 93, Est GFR (MDRD) Non-Af 77, BUN/Creatinine Ratio 16.5, Glucose 140 H, Calcium 8.8, Total Bilirubin 0.30, AST 18, ALT 41, Alkaline Phosphatase 84, Total Protein 8.4 H, Albumin 3.6, Globulin 4.8 H, Albumin/Globulin Ratio 0.8 L, Lipase 33 L 02/01/20 22:50: Ethyl Alcohol < 3.0 02/01/20 22:55: Urine Color Yellow, Urine Clarity Clear, Urine pH 6.0, Ur Specific [place] 1.020, Urine Protein 15 H, Urine Glucose (UA) Normal, Urine Ketones 5 H, Urine Occult Blood Negative, Urine Nitrite Negative, Urine Bilirubin 1 H, Urine Urobilinogen 12 H, Ur Leukocyte Esterase 25 H, Urine RBC 0 SEEN, Urine WBC 0-5 SEEN, Ur Squamous Epith Cells 0 SEEN, Urine Bacteria 0 SEEN, Urine Mucus 0 SEEN 02/01/20 22:55: Urine Opiates Screen POSITIVE H, Urine Methadone Screen NEGATIVE, Ur Barbiturates Screen NEGATIVE, Ur Phencyclidine Scrn NEGATIVE, Ur Amphetamines Screen POSITIVE H, U Methamphetamin-MDMA POSITIVE H, U Benzodiazepines Scrn NEGATIVE, Urine Cocaine Screen NEGATIVE, U Cannabinoids Screen NEGATIVE, Ur Drug Screen Comment Assessment/Plan All Active Problems Opiate withdrawal (Acute) 34-year-old male admitted for acute opiate withdrawal. 1. Acute opioid withdrawal Admit to [facility]. Urine tox positive for opiates, vitamins and methamphetamines. Started on acute opiate withdrawal with buprenorphine. Monitor CIWA any score. 2. History of infective endocarditis: States he required surgery for infective endocarditis back in 2016 and has been stable since. 3. Nicotine dependence: Counseled to quit. Nicotine patch 21 mg daily. DVT prophylaxis: Low risk. Encourage ambulation. Inpatient E&M: 01878 Init Hosp L3
[2020-02-01 23:52] VITALS: BMI 25.4
[2020-02-01 23:55] VITALS: BMI 25.4
[2020-02-02 00:16] VITALS: BP 141/77; PULSE 68; RESP 16; TEMP 36.9; O2SAT 97
[2020-02-02] MEDS: Neomycin/Bacitracin/Polymyxin Opth. Ointment 1 APPLIC LEFT EYE ×2 (02:33→11:11)
[2020-02-02] MEDS: Dicyclomine 10 MG Capsule 20 MG PO ×3 (02:51→22:39)
[2020-02-02] MEDS: hydrOXYzine PAM 25 MG Capsule 50 MG PO (02:51)
[2020-02-02] MEDS: Buprenorphine HCl 2 MG TAB.SUBL SL ×3 (02:52→18:05)
[2020-02-02] MEDS: cloNIDine HCl 0.1 MG Tablet PO ×2 (05:04→15:46)
[2020-02-02] MEDS: Gabapentin 300 MG Capsule PO (05:04)
[2020-02-02] MEDS: 0.9% Saline Lock 10 ML Syringe IV (05:12)
[2020-02-02] MEDS: Ondansetron 4 MG/2 ML Vial IV (05:12)
[2020-02-02 05:15] VITALS: BP 145/91; PULSE 74; RESP 18; TEMP 36.7; O2SAT 100
[2020-02-02 07:46] VITALS: BP 143/77; PULSE 66; RESP 14; TEMP 36.8; O2SAT 98
--- NOTE | 2020-02-02 09:59 | ADDICTION ---
This policy writer sales met with patient in his room to complete MSE, ASAM, RODRIGUEZ, DUDIT and to begin discharge planning. Patient was alert and orietned x4 but was resistant to meeting with the policy writer sales and presented with depressed mood and withdrawn, agitated affect. He participated minimally throughout assessment and refused all recommendations stating it's all a mind thing. This policy writer sales attempted to encourage patient to engage in treatment but patient refused again stating that he has done treatment before and it didn't help. Patient refused discharge planning. Patient was provided with contact information for behavioral health agencies in [facility] as well as NA and AA meetings, the Navigator phone number, the Crisis Team phone number, the Peer Support phone number and this writers contact information at [facility]. This policy writer sales will attempt to follow up with patient at next visit. ASAM, RODRIGUEZ, MSE, and DUDIT to be faxed to . Patient appears appropriate for the 4.0 Medically Managed Intensive Inpatient treatment based on ASAM assessment.
[2020-02-02] MEDS: KETOROLAC TROMETHAMINE 5 ML DROPS 1 ML OP (11:11)
[2020-02-02 15:43] VITALS: BP 135/83; PULSE 62; RESP 14; TEMP 37.1; O2SAT 100
--- NOTE | 2020-02-02 17:56 | PN_ITS ---
Patient Problems: Active and Suspected Problems Opiate withdrawal (Acute) Subjective: Patient was seen and examined today, he does not complain of any nervousness, muscle pain, or nausea. - Physical Exam Vitals/I&O's: Vital Signs Temp Pulse Resp BP Pulse Ox 98.8 F 62 14 135/83 H 100 02/02/20 15:43 02/02/20 15:43 02/02/20 15:43 02/02/20 15:43 02/02/20 15:43 Oxygen Delivery Method Room Air Weight: 85.003 kg Body Mass Index (BMI) 25.4 Finger Stick Blood Glucose 108 Intake and Output for Last 24 Hours 01/31/20 02/01/20 02/02/20 23:59 23:59 23:59 Intake Total 500 / 500 Balance 500 / 500 General: Alert, Oriented x3, Cooperative, No apparent distress, Well developed, Well nourished HEENT: Atraumatic, PERRLA, EOMI, Normocephalic Oral: Moist Mucosa Neck: Supple, No JVD, Trachea Midline, Thyroid Normal Size and Texture Lungs: Clear to auscultation, Normal air movement, No rhonchi, No wheeze, No rales Cardiovascular: Regular rate, Regular Rhythm, Normal S1, Normal S2, No murmurs, PMI Normal, No rub noted, No Gallop Abdomen: Bowel Sounds Present, Soft, Non Tender, Non-Distended Extremities: No clubbing, No cyanosis, No edema, Capillary Refill Less than 3 Seconds Skin: No rashes, No breakdown Musculoskeletal: No Tenderness to Palpation of Joints or Extremities Neurological: Cranial nerves II-XII grossly intact, Neuro grossly intact, Sensory exam intact to light touch and pain, Coordination normal Psych/Mental Status: Normal Affect, Appropriate, Alert and oriented to time, place, person, mood and affect Laboratory Results 02/01/20 22:50: WBC 7.7, RBC 4.88, Hgb 14.9, Hct 43.9, MCV 90.0, MCH 30.5, MCHC 33.9, RDW Std Deviation 40.4, RDW Coeff of [place] 12.3, Plt Count 255, MPV 11.5, Immature Gran % (Auto) 0.400, Neut % (Auto) 71.9 H, Lymph % (Auto) 15.3 L, [place] % (Auto) 7.7, Eos % (Auto) 4.3, Baso % (Auto) 0.4, Absolute Neuts (auto) 5.5, Absolute Lymphs (auto) 1.17, Nucleated RBC % 0 02/01/20 22:50: Sodium 139, Potassium 4.0, Chloride 105, Carbon Dioxide 31.0, Anion Gap 3 L, BUN 19 H, Creatinine 1.15, Estim Creat Clear Calc 99.34, Est GFR (MDRD) Af Amer 93, Est GFR (MDRD) Non-Af 77, BUN/Creatinine Ratio 16.5, Glucose 140 H, Calcium 8.8, Total Bilirubin 0.30, AST 18, ALT 41, Alkaline Phosphatase 84, Total Protein 8.4 H, Albumin 3.6, Globulin 4.8 H, Albumin/Globulin Ratio 0.8 L, Lipase 33 L 02/01/20 22:50: Ethyl Alcohol < 3.0 02/01/20 22:55: Urine Color Yellow, Urine Clarity Clear, Urine pH 6.0, Ur Specific [place] 1.020, Urine Protein 15 H, Urine Glucose (UA) Normal, Urine Ketones 5 H, Urine Occult Blood Negative, Urine Nitrite Negative, Urine Bilirubin 1 H, Urine Urobilinogen 12 H, Ur Leukocyte Esterase 25 H, Urine RBC 0 SEEN, Urine WBC 0-5 SEEN, Ur Squamous Epith Cells 0 SEEN, Urine Bacteria 0 SEEN, Urine Mucus 0 SEEN 02/01/20 22:55: Urine Opiates Screen POSITIVE H, Urine Methadone Screen NEGATIVE, Ur Barbiturates Screen NEGATIVE, Ur Phencyclidine Scrn NEGATIVE, Ur Amphetamines Screen POSITIVE H, U Methamphetamin-MDMA POSITIVE H, U Benzodiazepines Scrn NEGATIVE, Urine Cocaine Screen NEGATIVE, U Cannabinoids Screen NEGATIVE, Ur Drug Screen Comment Current Medications Buprenorphine HCl (Buprenorphine Hcl) 4 mg SL Q8H ZAHRAA; Taper Stop: 02/05/20 02:44 Last Admin: 02/02/20 11:11 Dose: 4 mg Documented by: Clonidine (Catapres) 0.1 mg PO Q8H PRN PRN PRN Reason: RESTLESSNESS Last Admin: 02/02/20 15:46 Dose: 0.1 mg Documented by: Dextrose (D50w Syringe) 0 gm IV X1 PRN; Protocol PRN Reason: Hypoglycemia Dicyclomine HCl (Bentyl) 20 mg PO Q6H PRN PRN PRN Reason: Abdominal Discomfort Last Admin: 02/02/20 15:46 Dose: 20 mg Documented by: Gabapentin (Neurontin) 300 mg PO Q8H PRN PRN PRN Reason: moderate to severe anxiety Last Admin: 02/02/20 05:04 Dose: 300 mg Documented by: Glucagon () 1 mg IM .X1 PRN PRN Reason: Hypoglycemia Hydroxyzine Pamoate (Vistaril Pamoate Capsule) 50 mg PO Q6H PRN PRN PRN Reason: mild anxiety Last Admin: 02/02/20 02:51 Dose: 50 mg Documented by: Sodium Chloride () 250 mls @ 15 mls/hr IV .[id number] PRN PRN Reason: Saline Flush Ketorolac Tromethamine (Ketorolac Tromethamine) 1 ml OP BID [facility] Last Admin: 02/02/20 11:11 Dose: 1 ml Documented by: Loperamide HCl (Imodium) 2 mg PO Q4H PRN PRN PRN Reason: LOOSE STOOLS Methocarbamol (Methocarbamol) 1,500 mg PO Q6H PRN PRN PRN Reason: MUSCLE SPASM Neomycin/Polymyxin/Bacitracin (Neosporin) 1 applic LEFT EYE BID ZAHRAA; Protocol Last Admin: 02/02/20 11:11 Dose: 1 applicatio Documented by: Ondansetron HCl (Zofran) 8 mg PO Q8H PRN PRN PRN Reason: NAUSEA Ondansetron HCl (Zofran) 4 mg IV Q8H PRN PRN PRN Reason: NAUSEA/VOMITING Last Admin: 02/02/20 05:12 Dose: 4 mg Documented by: Sodium Chloride () 10 - 40 ml IV UD PRN PRN Reason: SALINE FLUSH Last Admin: 02/02/20 05:12 Dose: 10 ml Documented by: Trazodone HCl (Desyrel) 100 mg PO QHS PRN PRN PRN Reason: INSOMNIA Medical Necessity - Tobacco Use Smoking Status: Current every day smoker Tobacco Use: Cigarettes Assessment/Plan All Active Problems Opiate withdrawal (Acute) #1 acute opioid withdrawal-continue medications, I will stop some of the PRN medications the patient has been ordered. #2 essential hypertension-I will place the patient on medication, he was not taking any medication as an outpatient Inpatient E&M: [id number] [facility] Hosp L2
[2020-02-02] MEDS: Losartan Potassium 100 MG Tablet PO (19:22)
[2020-02-02] MEDS: Ondansetron 8 MG Tablet PO (19:52)
[2020-02-02 22:35] VITALS: BP 131/91; PULSE 68; RESP 16; TEMP 36.7; O2SAT 100
[2020-02-02] MEDS: Tobram/Dexam 2.5ML OPTH.BTL 1 DRP LEFT EYE (22:37)
[2020-02-03 02:37] VITALS: BP 135/89; PULSE 55; RESP 16; TEMP 36.7; O2SAT 99
[2020-02-03] MEDS: Buprenorphine HCl 2 MG TAB.SUBL SL ×3 (02:39→18:19)
[2020-02-03] MEDS: cloNIDine HCl 0.1 MG Tablet PO ×3 (02:39→20:49)
[2020-02-03] MEDS: Tobram/Dexam 2.5ML OPTH.BTL 1 DRP LEFT EYE ×5 (06:15→20:49)
[2020-02-03] MEDS: Ondansetron 8 MG Tablet PO (06:17)
[2020-02-03] MEDS: Dicyclomine 10 MG Capsule 20 MG PO ×3 (06:17→20:49)
[2020-02-03 09:10] VITALS: BP 118/83; PULSE 62; RESP 16; TEMP 37.2; O2SAT 100
[2020-02-03] MEDS: Losartan Potassium 100 MG Tablet PO (09:10)
--- NOTE | 2020-02-03 13:53 | ADDICTION ---
This greeting card writer attempted to process discharge planning with patient. Patient refused discharge planning stating that I just finished treatment and this is voluntary. This greeting card writer confirmed that patient has [facility] contact information in preparation for his discharge. His assessment information was faxed to on 02/02/2020.
[2020-02-03 14:30] VITALS: BP 116/73; PULSE 65; RESP 16; TEMP 36.6; O2SAT 99
--- NOTE | 2020-02-03 16:42 | PN_ITS ---
Patient Problems: Active and Suspected Problems Opiate withdrawal (Acute) Subjective: Patient was seen and examined today, he still has some redness in his left eye but he does not have any nausea or vomiting and no muscle cramps. Objective: General: Alert, Oriented x3, Cooperative, No apparent distress, Well developed, Well nourished HEENT: Atraumatic, PERRLA, EOMI, Normocephalic, patient has redness in the sclera of his left eye Oral: Moist Mucosa Neck: Supple, No JVD, Trachea Midline, Thyroid Normal Size and Texture Lungs: Clear to auscultation, Normal air movement, No rhonchi, No wheeze, No ral es Cardiovascular: Regular rate, Regular Rhythm, Normal S1, Normal S2, No murmurs, PMI Normal, No rub noted, No Gallop Abdomen: Bowel Sounds Present, Soft, Non Tender, Non-Distended Extremities: No clubbing, No cyanosis, No edema, Capillary Refill Less than 3 Seconds Skin: No rashes, No breakdown Musculoskeletal: No Tenderness to Palpation of Joints or Extremities Neurological: Cranial nerves II-XII grossly intact, Neuro grossly intact, Sensory exam intact to light touch and pain, Coordination normal Psych/Mental Status: Normal Affect, Appropriate, Alert and oriented to time, place, person, mood and affect - Physical Exam Vitals/I&O's: Vital Signs Temp Pulse Resp BP Pulse Ox 97.8 F 65 16 116/73 99 02/03/20 14:30 02/03/20 14:30 02/03/20 14:30 02/03/20 14:30 02/03/20 14:30 Oxygen Delivery Method Room Air Weight: 85.003 kg Body Mass Index (BMI) 25.4 Finger Stick Blood Glucose 108 Intake and Output for Last 24 Hours 02/01/20 02/02/20 02/03/20 23:59 23:59 23:59 Intake Total 980 / 980 800 / 800 Balance 980 / 980 800 / 800 Current Medications Buprenorphine HCl (Buprenorphine Hcl) 2 mg SL Q8H ZAHRAA; Taper Stop: 02/05/20 02:44 Last Admin: 02/03/20 10:42 Dose: 2 mg Documented by: Clonidine (Catapres) 0.1 mg PO Q8H PRN PRN PRN Reason: RESTLESSNESS Last Admin: 02/03/20 12:01 Dose: 0.1 mg Documented by: Dicyclomine HCl (Bentyl) 20 mg PO Q6H PRN PRN PRN Reason: Abdominal Discomfort Last Admin: 02/03/20 12:01 Dose: 20 mg Documented by: Sodium Chloride () 250 mls @ 15 mls/hr IV .[id number] PRN PRN Reason: Saline Flush Losartan Potassium (Cozaar) 100 mg PO DAILY [facility] Last Admin: 02/03/20 09:10 Dose: 100 mg Documented by: Nicotine (Nicoderm Cq (Pbkc)) 21 mg TRANSDERM. DAILY [facility] Last Admin: 02/03/20 09:10 Dose: 21 mg Documented by: Ondansetron HCl (Zofran) 8 mg PO Q8H PRN PRN PRN Reason: NAUSEA Last Admin: 02/03/20 06:17 Dose: 8 mg Documented by: Sodium Chloride () 10 - 40 ml IV UD PRN PRN Reason: SALINE FLUSH Last Admin: 02/02/20 05:12 Dose: 10 ml Documented by: Tobramycin/Dexamethasone (Tobradex) 1 drop LEFT EYE Q4HWA [facility] Last Admin: 02/03/20 14:30 Dose: 1 drop Documented by: Medical Necessity - Tobacco Use Smoking Status: Current every day smoker Tobacco Use: Cigarettes Assessment/Plan All Active Problems Opiate withdrawal (Acute) #1 acute opioid withdrawal-continue medications #2 essential hypertension-his blood pressures controlled at this time on medication #3 conjunctivitis of the left eye-patient is now on TobraDex drops Inpatient E&M: 93623 Subs Hosp L2
[2020-02-03 20:55] VITALS: BP 135/89; PULSE 60; RESP 16; TEMP 37.1; O2SAT 98
[2020-02-04] MEDS: Buprenorphine HCl 2 MG TAB.SUBL SL ×2 (02:35→14:16)
[2020-02-04 02:37] VITALS: BP 117/79; PULSE 57; RESP 16; TEMP 37.2; O2SAT 99
[2020-02-04] MEDS: Tobram/Dexam 2.5ML OPTH.BTL 1 DRP LEFT EYE ×3 (06:12→14:13)
[2020-02-04 08:37] VITALS: BP 132/85; PULSE 71; RESP 16; TEMP 36.9; O2SAT 100
[2020-02-04] MEDS: Losartan Potassium 100 MG Tablet PO (10:21)
[2020-02-04 14:07] VITALS: BP 147/96; PULSE 83; RESP 16; TEMP 36.9; O2SAT 98
--- NOTE | 2020-02-04 14:18 | DCINST_ITS ---
- Discharge Diagnoses Current Active Problems: Current Active and Chronic Problems Opiate withdrawal (Acute) You will use the following diet at home:: No restrictions Your food should be the consistency of: Regular Your liquids should be the consistency of: Regular/Thin Discharge Activity: Return to Normal Activity Allergies/Adverse Reactions: Allergies No Known Allergies Allergy (Verified 01/31/20 10:39) Medications to take at Discharge Tobram/Dexam [Tobradex] 1 drop LEFT EYE 4X/DAY #1 opth.btl 02/04/20 The following prescriptions were given: Tobram/Dexam [Tobradex] 1 drop LEFT EYE 4X/DAY #1 opth.btl Primary Care Physician: Care Physician,No Primary [Primary Care Provider] - Test Results: Test results from this visit will be discussed in further detail at your follow- up appointment, if applicable.
--- NOTE | 2020-02-04 18:46 | DS.PCM_ITS ---
Discharge Date and Diagnosis Date of Admission: 02/01/20 Date of Discharge: 02/04/20 - Primary Discharge Diagnosis Acute Problems: #1 acute opioid withdrawal- #2 essential hypertension #3 conjunctivitis of the left eye - Secondary Discharge Diagnosis Chronic Problems: Chronic Problems History of infective endocarditis (Chronic) Hypertension (Chronic) Heroin abuse (Chronic) Hospital Course and Treatment Operations: None Procedures: None Summary of Care Provided: The patient is a 34 year old M was seen in the emergency room at [facility] with a chief complaint of desiring heroin detox. Patient's tox screen in the emergency room was positive for opiates amphetamines and methamphetamines. Patient's lab was otherwise unremarkable except for positive leukocyte esterase in the urine. Patient was noted to be hypertensive. Patient was admitted to [place] [address] and orders were placed using the opiate withdrawal o rder set, patient's blood pressure remained elevated and he had to be placed on blood pressure medication-he had a past history of hypertension and was no longer taking blood pressure medications. Patient had no serious adverse events during his hospitalizations, he was maintained on eyedrops for conjunctivitis of his left eye. On 02/04/2020, patient was seen and examined: On examination he appeared in good health and spirits. Vital signs as documented. Skin warm and dry and without overt rashes. Neck without JVD, neck was supple, trachea midline, thyroid was normal. Lungs clear bilaterally, normal air movement was noted. Heart exam notable for regular rhythm, normal sounds and absence of murmurs, rubs or gallops. Abdomen unremarkable and without evidence of organomegaly, masses, or abdominal aortic enlargement. Bowel sounds are present, abdomen is not distended. Extremities nonedematous, no cyanosis was noted, no clubbing was noted. Neuro: Cranial nerves II through XII are grossly intact, no focal motor deficits were noted, sensation to light touch and pinprick intact, motor exam 5/5 throughout. Psych: Patient is alert and oriented x3, he does not appear anxious or depressed, he does not appear agitated. On 02/04/2020, patient was discharged home in stable condition. The patient did not desire any follow-up for continuing outpatient detox services and declined them. I phoned in a prescription for losartan 100 mg once a day for the patient to take after he was discharged-this was omitted on the patient's discharge instructions. Patient was notified of this by phone. - Physical Exam Vitals/I&O's: Vital Signs Temp Pulse Resp BP Pulse Ox 98.5 F 83 16 147/96 H 98 02/04/20 14:07 02/04/20 14:07 02/04/20 14:07 02/04/20 14:07 02/04/20 14:07 Oxygen Delivery Method Room Air Weight: 85.003 kg Body Mass Index (BMI) 25.4 Finger Stick Blood Glucose 108 Intake and Output for Last 24 Hours 02/02/20 02/03/20 02/04/20 23:59 23:59 23:59 Intake Total 980 / 980 800 / 800 Balance 980 / 980 800 / 800 Discharge Activity: Return to Normal Activity Home Medications: Medications to take at Discharge Tobram/Dexam [Tobradex] 1 drp LEFT EYE 4X/DAY #1 opth.btl 02/04/20 Following Prescriptions Were Given to Patient: Tobram/Dexam [Tobradex] 1 drp LEFT EYE 4X/DAY #1 opth.btl Primary Care Physician: Care Physician,No Primary [Primary Care Provider] - Disposition: Home Minutes spent on discharge:: 32 Patient Condition:: Stable Medical Necessity - Tobacco Use Smoking Status: Current every day smoker Tobacco Use: Cigarettes Meaningful Use Info Meaningful Use Diagnoses (Choose all that apply): None applicable Inpatient E&M: 71392 Disch Hosp
== END 2020-02-04 15:02 | disposition home or self-care (01) | DRG 773 ==
LOC: ED 22:32 → MS3 23:48
PROVIDERS: Admitting Provider Student in an Organized Health Care Education/Training Program; Emergency Provider Emergency Medicine; Referring Provider Student in an Organized Health Care Education/Training Program; Visit Provider Internal Medicine
DX: F11.23 Opioid dependence with withdrawal (principal); H10.9 Unspecified conjunctivitis; I10 Essential (primary) hypertension; F17.210 Nicotine dependence, cigarettes, uncomplicated
CPT/HCPCS: 80053; 80307; 80320; 81001; 83690; 85025; 99282; 99284; 99406; A4216; G0480; J2405

== ENCOUNTER 2020-04-29 20:40 | Emergency (ER) | payer MEDICAID, SELFPAY ==
[2020-04-29 20:40] VITALS: BP 166/132; PULSE 100; RESP 16; TEMP 36.4; O2SAT 100; BMI 25.7
--- NOTE | 2020-04-29 21:08 | ED.DCSUM_ITS ---
- ER Visit Summary Date of Service: 04/29/20 Chief Complaint: Fever History of Present Illness: The patient is a 34 M presenting with fever x3 days. He states this has been intermittent. He has had temperature up to 103 at home. Last Tylenol was 6 hours ago. He is afebrile on arrival to the ED. He denies sick contacts or known exposure to Covid. He uses IV heroin. He has a remote history of endocarditis. He complains of nausea, vomiting. He has myalgias and mild headache. He denies chest pain or shortness of breath. Denies diarrhea or other complaints. Physical Examination: Vitals are stable. Blood pressure 166/132. Patient is afebrile. Alert no acute distress. Pulse ox 100% on room air HEENT exam is unremarkable. Neck is supple. No meningismus Lungs are clear and equal bilaterally. Heart is regular rate and rhythm. Abdomen is soft nontender nondistended. Extremities mild left lower extremity erythema, no areas of fluctuance. Normal distal pulses Skin is warm and dry. No rash No focal neurologic deficit. Remainder of exam is unremarkable. Emergency Department Course and Treatment: Patient was given Zofran, IV fluids. Repeat blood pressure 125/80 without treatment. Chest x-ray shows no acute process. Chemistries show sodium 128, BUN 23. He was given IV fluids. Urinalysis shows 10-25 white blood cells, 2+ bacteria. Urine culture was sent. He denies exposure to STD or penile discharge. GC chlamydia cultures were sent. Covid test was sent and is pending. Due to his left lower extremity pain venous Doppler was ordered. It is not available at this time of night. He was given order form to return tomorrow for this test. Patient is agreeable with this plan. He is tolerating p.o. He is resting comfortably on reevaluation. He is given prescription for Keflex to cover for UTI and mild left lower extremity cellulitis. Advised to return to ED for worsening complaints. Disposition: Discharge home Impression: Febrile illness, UTI, left lower extremity cellulitis This note was generated with [employer] dictation software. It may contain incorrect words, spelling, and punctuation that were not noted in review of the chart prior to signing ED Disposition - Plan for ED Patient: Referrals: Care Physician,No Primary [Primary Care Provider] -
[2020-04-29 21:20] LABS: Mucous, Urine 0 SEEN /hpf (<or=2+); Squamous Epithelial Cells - UA 0 SEEN /hpf (0-5)
[2020-04-29 21:23] LABS: Color, Urine Yellow (Yellow); Glucose, Dipstick Normal (Normal); Ketone-Dipstick Negative (Negative); Leukocyte Esterase-Dipstick 100 /ul (Negative); Nitrite-Dipstick Negative (Negative); Occult Blood-Urine 150 /ul (Negative); Protein-Dipstick 100 mg/dl (Negative); Urine Clarity Clear (Clear); Urine Urobilinogen 4 mg/dl (Normal)
[2020-04-29 21:24] LABS: Urine Bilirubin Dipstick 1 mg/dL (Negative)
[2020-04-29 21:34] LABS: White Blood Cells 10-25 SEEN /hpf (0-5)
[2020-04-29 21:35] LABS: Bacteria 2+ /hpf (None Seen); Hyaline Cast 0-5 SEEN /lpf (0-5); Red Blood Cells-Urine 0-5 SEEN /hpf (0-5)
--- NOTE | 2020-04-29 21:35 | RAD_ITS ---
STUDY: X-RAY CHEST REASON FOR EXAM: Male, 34 years old. Fever, nausea, vomiting. TECHNIQUE: Single AP portable view of the chest. COMPARISON: 01/26/2017. FINDINGS: The lungs are clear and expanded. There is no demonstrated pleural abnormality. Normal size heart. Sternotomy wires are present. Normal mediastinum and tavo. Normal visualized pulmonary arteries. Normal visualized aortic arch and descending thoracic aorta. Normal visualized thoracic spine. Normal visualized ribs, clavicles, and shoulders. There is no demonstrated abnormality of the visualized soft tissue structures of the upper abdomen. RAD/Chest 1 View (Portable) IMPRESSION: Normal x-ray examination of the chest. Electronically Signed: Maryan Miller MD at 22:13 EDT Tel , Service support ,
[2020-04-29 21:40] LABS: Anion Gap 6 (5-15); BUN 23 mg/dL (7-18); BUN/Creat Ratio 17.7 RATIO (10-20); Calcium,Total 8.6 mg/dL (8.5-10.1); Chloride 95 mmol/L (98-107); EST Glomerular Filtration Rate 67 mL/min (>60); Est Glom Filt Rate - Afr Amer 81 mL/min (>60); Estimated Creatinine Clearance 87.88 ml/min; Glucose 132 mg/dL (74-106); Potassium 3.9 mmol/L (3.5-5.1); Sodium Level 128 mmol/L (136-145)
[2020-04-29] MEDS: 0.9% Normal Saline 1,000 ML 1000 ML IV (22:24)
[2020-04-29] MEDS: Ondansetron 4 MG/2 ML Vial IV (22:24)
[2020-04-29 22:26] VITALS: BP 125/82; PULSE 89; RESP 18; TEMP 36.7; O2SAT 98
[2020-04-29 22:27] VITALS: BP 125/82
[2020-04-29] MEDS: Cephalexin 250 MG Capsule 500 MG PO (22:52)
--- NOTE | 2020-04-29 22:52 | ED.DEP ---
ED Disposition - Plan for ED Patient: Instructions: Understanding Urinary Tract Infections (UTIs) Prescriptions: Cephalexin [Keflex] 500 mg PO Q6 #40 cap Prescription Printed Ondansetron [Zofran Odt] 4 mg PO Q8H PRN PRN #10 tab PRN Reason: Nausea Prescription Printed Referrals: Efrain Umanzor III, MD [STAFF PHYSICIAN] -
[2020-04-29 23:15] VITALS: BP 124/72; PULSE 87; RESP 18; TEMP 37.2; O2SAT 97
[2020-04-30 00:43] LABS: Chlamydia Trachomatis by PCR Negative (Negative); Neisserai gonorrhoeae by PCR Negative (Negative); Probe Check PASS; Sample Adequacy Control PASS; Specimen Processing Control PASS
== END 2020-04-29 23:16 | disposition home or self-care (01) ==
LOC: ED 21:42
PROVIDERS: Emergency Provider Emergency Medicine
DX: L03.116 Cellulitis of left lower limb (principal); N39.0 Urinary tract infection, site not specified; R50.9 Fever, unspecified; I10 Essential (primary) hypertension; M79.605 Pain in left leg; Z72.0 Tobacco use; Z79.899 Other long term (current) drug therapy
CPT/HCPCS: 71045; 80048; 81001; 87040; 87077; 87086; 87088; 87149; 87186; 87491; 87591; 87635; 96361; 96374; 99285; J7030; A4216; J2405; U0002

== ENCOUNTER → 2020-04-30 10:32 | Outpatient (CLI) | payer MEDICAID, SELFPAY ==
[2020-04-29 20:40] VITALS: BMI 25.7
--- NOTE | 2020-04-30 10:41 | VDLE_ITS ---
Reason For Study: pain Procedure LEFT This is a venous duplex using B-mode, color CFV is compressible. flow and spectral Doppler. FV is compressible. Exam performed in department. POP V is compressible. The exam was abbreviated due to the COVID 19 GSV is dilated and noncompressible from the protocol. ankle to the groin. SVT is .59 cm from the CFV The exam was diagnostic. and appears to be loosely attached. Pt taked to ED. Varicose veins are dilated and noncompressible. T/P Trunk is compressible. PTV is compressible. LT PerV is compressible. Interpretation Summary Deep veins of the left lower extremity are patent and compressible segmentally. There is no evidence of left lower extremity deep vein thrombosis. Acute superficial thrombophlebitis is noted in the left great saphenous vein from the left ankle to within 0.59 centimeters of the left sapheno-femoral junction. Acute superficial thrombophlebitis is noted involving superficial varicosities in the left lower extremity. Ordering Physician: Palma Hutchison Performed By: Blue Talbot RVT
== END ==
PROVIDERS: Visit Provider Emergency Medicine
DX: M79.605 Pain in left leg (principal); I82.402 Acute embolism and thrombosis of unspecified deep veins of left lower extremity; I10 Essential (primary) hypertension; F17.200 Nicotine dependence, unspecified, uncomplicated; Z79.899 Other long term (current) drug therapy
CPT/HCPCS: 93971; 99281

== ENCOUNTER 2020-04-30 10:58 | Emergency (ER) | payer MEDICAID, SELFPAY ==
[2020-04-29 20:40] VITALS: BMI 25.7
[2020-04-30 10:59] VITALS: BP 98/72; PULSE 100; RESP 17; TEMP 36.8; O2SAT 96; BMI 25.2
--- NOTE | 2020-04-30 11:21 | ED.VIS.GEN ---
History of Present Illness Chief Complaint: Lower Extremity Injury Informant: Patient Narrative: 34-year-old male presenting with left leg pain. He states he has had this for 3 days. He was seen yesterday in the ED and had outpatient DVT study performed. He denies any chest pain, palpitations, shortness of breath. He believes the inciting event for this was injecting heroin into his legs. No history of DVT/PE. Dates he has no other medical problems. Past Medical History - Allergies and Home Meds Allergies/Adverse Reactions: Allergies No Known Allergies Allergy (Verified 04/30/20 10:59) Primary Care Physician: Shaq Chen DO [NON CLINICAL AFFILIATE] - Care Physician,No Primary [Primary Care Provider] - Prior records reviewed: Yes Past Medical History: - - Hypertension, heroin abuse Surgical History: noncontributory, - - Open heart surgery for endocarditis. Lives: Alone Smoking Status: Current every day smoker Alcohol: Rare Drugs: Heroin - Family History Maternal Family History: Reports: No pertinent history, - Additional Family History: no heroin abuse Paternal Family History: Reports: No pertinent history Review of Systems General: Denies: Chills, Fever, Sweats Eyes: Denies: Visual changes - bilaterally, Diplopia ENT: Denies: Rhinorrhea, Sore throat Cardiovascular: Denies: Chest pain, Palpitations Respiratory: Denies: Dyspnea, Cough, Dyspnea on exertion Gastrointestinal: Denies: Abdominal pain, Nausea, Vomiting, Diarrhea, Melena, Hematochezia Genitourinary: Denies: Dysuria, Hematuria, Frequency Musculoskeletal: Reports: Swelling - Left leg from knee to groin, Extremity Pain - Left leg from knee to groin Skin: Denies: Rash, Abscess Neurological: Denies: Headache, Weakness, Numbness Physical Exam Vital Signs/Narrative: Vital Signs Temp Pulse Resp BP Pulse Ox 04/30/20 10:59 98.3 F 100 17 98/72 96 General: Well nourished, No Acute Distress Head: Normocephalic, Atraumatic Eyes: Perrl, EOMI ENT: Moist mucous membranes, No rhinorrhea Cardiovascular: Regular rate, Regular rhythm, No murmurs Respiratory: No distress, CTA bilaterally Extremities: - - Tenderness to palpation medially on the left leg from the knee up into the inguinal region. No cellulitic changes. Skin: - - Erythema overlying the area of the leg where he is tender from the medial aspect of the knee up into the inguinal area. Neurological: Alert, Oriented x3 Psychological: Normal affect, Normal Mood Diagnostic/Tx/Re-eval - Medical Decision Making Patient presents with leg pain and has a DVT study which shows superficial thrombophlebitis however there is close proximity to the common femoral vein. Given this I will treat him as DVT. He started on Eliquis in the ED. He was given a prescription and a physician to follow-up with. He is not having any chest pain, palpitations, shortness of breath. I do not believe he needs other lab work or imaging. Patient is given return precautions. I did also discuss the risks of being on a blood thinner and he acknowledges understanding. Patient is stable for discharge. Impression: 1. DVT ED Disposition - Plan for ED Patient: Disposition: Home or Assisted Living Instructions: ED DVT Prescriptions: Apixaban [Eliquis] 5 mg PO BID #72 tab Transmission Status: Received by [facility][id number] Referrals: Care Physician,No Primary [Primary Care Provider] - Shaq Chen DO [NON CLINICAL AFFILIATE] -
[2020-04-30 12:22] VITALS: PULSE 72; RESP 16; O2SAT 99
[2020-04-30] MEDS: APIXABAN 5 MG TABLET 10 MG PO (12:23)
--- NOTE | 2020-04-30 15:22 | ED.RN ---
Lab called with positive cultures; pt prescribed Keflex. Dr. Katz given info and states he will follow up when he gets time to check if additional meds needed for coverage. section repairer s. unkefur notified for f/u.
--- NOTE | 2020-04-30 15:32 | ED.RN ---
Pt called and this RN informed him that Dr. Katz would like him to return to the ED for a work up after positive blood cultures.
== END 2020-04-30 12:26 | disposition home or self-care (01) ==
LOC: ED 11:34
PROVIDERS: Emergency Provider Student in an Organized Health Care Education/Training Program
DX: I82.402 Acute embolism and thrombosis of unspecified deep veins of left lower extremity (principal); I10 Essential (primary) hypertension; F17.200 Nicotine dependence, unspecified, uncomplicated; Z79.899 Other long term (current) drug therapy

== ENCOUNTER 2020-04-30 17:51 | Inpatient (IN) | payer MEDICAID, SELFPAY ==
[2020-04-30] VITALS (9 sets, daily range): BP systolic 117–129; BP diastolic 66–80; PULSE 94–118; RESP 18–24; TEMP 36.1–37.6; O2SAT 91–99; BMI 25.2
--- NOTE | 2020-04-30 18:00 | ED.DCSUM_ITS ---
History of Present Illness Chief Complaint: General Illness Informant: Patient Narrative: 34-year-old male who admits to IV heroin use who was seen earlier today post DVT study which showed which showed superficial thrombophlebitis however this is close to the common femoral vein. Given its proximity he was started on Eliquis and discharged home. After he was discharged he had a positive blood culture come back from the night before. After receiving his positive blood culture he was called back into the ER. He was seen for fevers for 3 days. He states that they come at night. T-max is 103. States he does not have chest pain or shortness of breath. He was given a prescription the night before for Keflex which he did not fill which was to cover for UTI or superficial cellulitis of the leg. He states he has a history of endocarditis which he states almost killed him. - Past Medical History (1) Heroin abuse Status: Chronic (2) History of infective endocarditis Status: Chronic (3) Hypertension Status: Chronic Past Medical History - Allergies and Home Meds Allergies/Adverse Reactions: Allergies No Known Allergies Allergy (Verified 04/30/20 10:59) Primary Care Physician: Care Physician,No Primary [Primary Care Provider] - Past Medical History: - - Viewed in problem list Surgical History: noncontributory, - - Open heart surgery for endocarditis. Smoking Status: Current every day smoker Drugs: Heroin - Family History Maternal Family History: Reports: No pertinent history, - Additional Family History: no heroin abuse Paternal Family History: Reports: No pertinent history Review of Systems General: Reports: Chills, Fever, Sweats Eyes: Denies: Visual changes - bilaterally, Diplopia ENT: Denies: Rhinorrhea, Sore throat Cardiovascular: Denies: Chest pain, Palpitations Respiratory: Denies: Dyspnea, Cough, Dyspnea on exertion Gastrointestinal: Denies: Abdominal pain, Nausea, Vomiting, Diarrhea, Melena, Hematochezia Genitourinary: Denies: Dysuria, Hematuria, Frequency Skin: Reports: - - Professional thrombophlebitis of left leg Neurological: Denies: Headache, Weakness, Parasthesia Psych: Denies: Suicidal thoughts, Suicidal ideations Physical Exam Vital Signs/Narrative: Vital Signs Temp Pulse Resp BP Pulse Ox 04/30/20 17:52 97 F L 109 H 18 129/80 H 99 Inital Vital Signs reviewed: Yes General: Well nourished, No Acute Distress Head: Normocephalic, Atraumatic Eyes: Perrl, EOMI. Negative for: Scleral icterus ENT: Moist mucous membranes, No rhinorrhea Cardiovascular: Regular rhythm, Tachycardia Respiratory: No distress, CTA bilaterally Abdomen: Soft, Nontender, Nondistended Extremities: - - Erythema and tenderness in the medial aspect of the left leg extending from the knee into the inguinal area. Skin: - - Described above Neurological: Alert, Oriented x3 Psychological: Normal affect, Normal Mood Diagnostic/Tx/Re-eval Laboratory Data 04/30/20 04/30/20 04/30/20 19:05 19:05 19:05 WBC 6.5 RBC 4.76 Hgb 13.7 Hct 40.4 MCV 84.9 MCH 28.8 MCHC 33.9 RDW Std Deviation 39.0 RDW Coeff of [place] 12.6 Plt Count 105 L MPV 12.9 H Immature Gran % (Auto) 0.600 Neut % (Auto) 83.3 H Lymph % (Auto) 7.9 L [place] % (Auto) 6.6 Eos % (Auto) 1.1 Baso % (Auto) 0.5 Absolute Neuts (auto) 5.4 Absolute Lymphs (auto) 0.51 L Nucleated RBC % 0 Differential Comment SCANNED PT 16.6 H INR 1.4 APTT 33.9 Sodium 130 L Potassium 3.4 L Chloride 95 L Carbon Dioxide 30.0 Anion Gap 5 BUN 18 Creatinine 1.15 Estim Creat Clear Calc 99.34 Est GFR (MDRD) Af Amer 93 Est GFR (MDRD) Non-Af 77 BUN/Creatinine Ratio 15.7 Glucose 114 H Lactic Acid Calcium 7.7 L Total Bilirubin 0.50 AST 22 ALT 32 Alkaline Phosphatase 66 Troponin I < 0.015 Total Protein 7.0 Albumin 2.8 L Globulin 4.2 Albumin/Globulin Ratio 0.7 L Urine Color Urine Clarity Urine pH Ur Specific [place] Urine Protein Urine Glucose (UA) Urine Ketones Urine Occult Blood Urine Nitrite Urine Bilirubin Urine Urobilinogen Ur Leukocyte Esterase 04/30/20 04/30/20 19:05 19:36 WBC RBC Hgb Hct MCV MCH MCHC RDW Std Deviation RDW Coeff of [place] Plt Count MPV Immature Gran % (Auto) Neut % (Auto) Lymph % (Auto) [place] % (Auto) Eos % (Auto) Baso % (Auto) Absolute Neuts (auto) Absolute Lymphs (auto) Nucleated RBC % Differential Comment PT INR APTT Sodium Potassium Chloride Carbon Dioxide Anion Gap BUN Creatinine Estim Creat Clear Calc Est GFR (MDRD) Af Amer Est GFR (MDRD) Non-Af BUN/Creatinine Ratio Glucose Lactic Acid 2.0 Calcium Total Bilirubin AST ALT Alkaline Phosphatase Troponin I Total Protein Albumin Globulin Albumin/Globulin Ratio Urine Color Yellow Urine Clarity Clear Urine pH 6.5 Ur Specific [place] 1.015 Urine Protein 100 H Urine Glucose (UA) Normal Urine Ketones 5 H Urine Occult Blood 150 H Urine Nitrite Negative Urine Bilirubin 1 H Urine Urobilinogen 12 H Ur Leukocyte Esterase 25 H - Rhythm Strip Rhythm Strip: Sinus Rhythm Rate: 98 - EKG Initial EKG Interpretation: Sinus Rhythm, - - IL interval 154 ms QRS duration 92 ms QTc 518 ms - Medical Decision Making 34-year-old male with history of IV drug abuse presenting with history of fevers over the last 4 days. He also admits to chills and sweats. He states the fever usually occurs more at the nighttime. T-max of 103. Patient had lab work done last evening which was negative for Covid, GC chlamydia. He did not have a CBC ordered. He did have 2 blood cultures which were positive for staph. Patient was called to return to the ER. He still having chills and sweats. He does not have a fever. He still slightly tachycardic but otherwise his vital signs are stable. He is clearly mentating. After lengthy discussion patient states he had a history of endocarditis which almost killed him previously. He states that the symptoms were worse at that time and more constant. Given that he has an IV drug user and has positive blood cultures he will need to be admitted for bacteremia and endocarditis work-up. 1. Bacteremia 2. History of IV drug abuse 3. Sepsis ED Disposition - Plan for ED Patient: Disposition: Acute Care Hospital [facility] Referrals: Care Physician,No Primary [Primary Care Provider] -
--- NOTE | 2020-04-30 18:01 | EKG12_ITS ---
Test Reason : DYSRYTHMIA Blood Pressure : / mmHG Vent. Rate : 098 BPM Atrial Rate : 098 BPM P-R Int : 154 ms QRS Dur : 092 ms QT Int : 406 ms P-R-T Axes : 066 095 061 degrees QTc Int : 518 ms Normal sinus rhythm Biatrial enlargement Rightward axis Incomplete right bundle branch block Prolonged QT Abnormal ECG Confirmed by PATRICIA LONG, RITA ([id number]), commissioning editor JULIAN MARTIN ([id number]) on 05/02/2020 10:30:40 AM Referred By: BENI Confirmed By:RITA GOMEZ MD
[2020-04-30] MEDS: 0.9% Normal Saline 1,000 ML 999 ML IV ×3 (19:15→21:55)
[2020-04-30 19:19] LABS: Absolute Lymphocyte Count 0.51 X10^3/uL (0.83-4.51); Absolute Neutrophil Count 5.4 X10^3/uL (2.0-7.7); Basophil# 0.03 X10^3/uL; Basophil% 0.5 % (0-1); Eosinophil# 0.07 X10^3/uL; Eosinophils% 1.1 % (0-5); Hematocrit 40.4 % (40-54); Hemoglobin 13.7 g/dL (13.0-16.5); Lymphocyte # 0.51 X10^3/ul (4.0); Lymphocyte % 7.9 % (19-41); Mean Corp Hgb Conc 33.9 g/dL (32-36); Mean Corpuscular Hgb 28.8 pg (27.0-32.0); Mean Corpuscular Volume 84.9 fL (80-94); Mean Platelet Vol. 12.9 fl (6.2-12.0); Monocyte# 0.43 X10^3/uL; Monocyte% 6.6 % (0-10); NRBC Flagged by Analyzer 0 % (0-5); Neutrophil # 5.41 X10^3/uL (2.7-7.7); Neutrophil % 83.3 % (47-70); POSITIVE DIFFERENTIAL YES; Platelet Count 105 K/mm3 (150-450); RBC Distribution Width CV 12.6 % (11.6-14.6); Red Blood Count 4.76 M/mm3 (4.6-6.2); White Blood Count 6.5 K/mm3 (4.4-11.0)
[2020-04-30 19:23] LABS: Differential Indicated SCAN CRITERIA MET
[2020-04-30 19:28] LABS: International Normalized Ratio 1.4; Prothrombin Time (Protime)PT. 16.6 SECONDS (11.7-14.9)
[2020-04-30 19:29] LABS: Partial Thromboplast Time 33.9 Seconds (24.1-36.2)
[2020-04-30 19:41] LABS: ALB/GLOB Ratio 0.7 RATIO (0.9-2.4); AST(SGOT) 22 U/L (15-37); Alanine Aminotransfer ALT/SGPT 32 U/L (16-61); Albumin, Serum 2.8 g/dL (3.2-5.0); Alkaline Phosphatase 66 U/L (45-117); Anion Gap 5 (5-15); BUN 18 mg/dL (7-18); BUN/Creat Ratio 15.7 RATIO (10-20); Calcium,Total 7.7 mg/dL (8.5-10.1); Chloride 95 mmol/L (98-107); Creatinine, Serum 1.15 mg/dL (0.70-1.30); EST Glomerular Filtration Rate 77 mL/min (>60); Est Glom Filt Rate - Afr Amer 93 mL/min (>60); Estimated Creatinine Clearance 99.34 ml/min; Globulin 4.2 g/dL (2.2-4.2); Glucose 114 mg/dL (74-106); Potassium 3.4 mmol/L (3.5-5.1); Sodium Level 130 mmol/L (136-145)
[2020-04-30 19:43] LABS: Mucous, Urine 0 SEEN /hpf (<or=2+); Squamous Epithelial Cells - UA 0 SEEN /hpf (0-5)
[2020-04-30 20:13] LABS: Differential Comment SCANNED
[2020-04-30 20:18] LABS: Color, Urine Yellow (Yellow); Glucose, Dipstick Normal (Normal); Ketone-Dipstick 5 mg/dl (Negative); Leukocyte Esterase-Dipstick 25 /ul (Negative); Nitrite-Dipstick Negative (Negative); Occult Blood-Urine 150 /ul (Negative); Protein-Dipstick 100 mg/dl (Negative); Specific Gravity, Urine 1.015 (1.002-1.030); Urine Clarity Clear (Clear); Urine Urobilinogen 12 mg/dl (Normal); Urine pH 6.5 (5.0 - 8.0)
[2020-04-30 20:39] LABS: Urine Bilirubin Dipstick 1 mg/dL (Negative)
[2020-04-30 21:00] LABS: Bacteria 1+ /hpf (None Seen); Red Blood Cells-Urine 0-5 SEEN /hpf (0-5); White Blood Cells 5-10 SEEN /hpf (0-5)
--- NOTE | 2020-04-30 21:07 | HP.PCM_ITS ---
Problem List (1) Sepsis Status: Acute (2) History of infective endocarditis Status: Chronic (3) Hypertension Status: Chronic (4) Heroin abuse Status: Chronic (5) Bacteremia Status: Acute (6) Cystitis Status: Acute History of Present Illness Date of Admission: 04/30/20 Chief Complaint: Fever The patient is a 34 year old M with a significant history of hepatitis C; IV drug use; infective endocarditis status post surgery who has a fever. His fever has been off and of for about 4 days. His fever usually located at night. Highest temperature at home was 103 Fahrenheit. Associated with symptoms is malaise and chills. Further, he has dark urine which he thinks is clearing up.. Also he has a pain and erythema of the medial side of his right lower extremity from his thigh to his lower leg. Because of poor upper extremity abscess which shoots heroin in his lower extremities. Patient was at the [facility] emergency department on 04/29/2020 where he was diagnosed with febrile illness, UTI, and left lower extremity cellulitis. He was prescribed Keflex which he never filled until at the point where he was called back to the hospital because of a positive blood culture. Patient return again to the emergency department on 04/30/2020 with left leg pain. Ultrasound of his left leg showed superficial thrombophlebitis close to the common femoral vein. Patient was started on Eliquis and he was discharged home. Later on on 04/30/2020 patient was called back to emergency department because of blood cultures were obtained a positive for staph aureus. On his second visit to emergency department he began to complain of pain in his right foot. Also a complaints of pain in his left lower back. Past Medical History Past Medical History (Chronic Problems): Chronic Problems History of infective endocarditis (Chronic) Hypertension (Chronic) Heroin abuse (Chronic) Allergies No Known Allergies Allergy (Verified 04/30/20 10:59) Home Medications: Ambulatory Orders Medication Instructions Recorded Apixaban [Eliquis] 5 mg PO BID #72 tab 04/30/20 Cephalexin [Keflex] 500 mg PO [id number] 04/30/20 Zofran Odt 4 mg SL PRN PRN 04/30/20 Surgical History: - - Open heart surgery for endocarditis. Psychiatric History: No pertinent psych hx Smoking Status: Current every day smoker Tobacco Use: Cigarettes Drugs: Heroin - *Family History Maternal History Items: Cancer, Heart Disease, Hypertension, - Paternal History Items: Diabetes Review of Systems Constitutional: Reports: Chills, Fever, Malaise, Fatigue. Denies: Weight Change HEENT: Denies: Nasal Congestion, Sinus Congestion, Sinus Drainage Cardiovascular: Denies: Chest Pain, Palpitations Respiratory: Denies: Cough, Shortness of breath at rest, Sputum production Gastrointestinal: Denies: Abdominal Pain, Nausea, Vomiting Genitourinary: Denies: Dysuria Musculoskeletal: Reports: Joint Pain, Joint Tenderness Skin: Reports: Skin Changes. Denies: Rash, Wounds Neurological: Denies: Numbness, Tingling, Focal weakness Psychiatric: Denies: Anxiety, Depression, Homicidal Ideations, Suicidal Ideations Hematologic/ Lymphatic: Denies: Easy Bruising, Easy Bleeding VTE Information - Inpt Only VTE Present on Admission: Yes - Left lower extremity superficial thrombophlebitis. VTE Mechan Device Prophylaxis: None VTE Pharm Prophylaxis ordered?: No Reason prophylaxis not ordered:: Treatment Not Indicated - On Eliquis for superficial thrombophlebitis. Patient Problems: Active and Suspected Problems Sepsis (Acute) Bacteremia (Acute) Cystitis (Acute) - Physical Exam Vitals/I&O's: Vital Signs Temp Pulse Resp BP Pulse Ox 99.7 F H 109 H 24 H 117/73 95 04/30/20 20:04 04/30/20 20:27 04/30/20 20:27 04/30/20 20:27 04/30/20 20:27 Oxygen Delivery Method Room Air Weight: 84.368 kg Body Mass Index (BMI) 25.2 Finger Stick Blood Glucose 108 Intake and Output for Last 24 Hours 04/28/20 04/29/20 04/30/20 23:59 23:59 23:59 Intake Total 749.25 / 749.25 Balance 749.25 / 749.25 General: Alert, Oriented x3, Cooperative HEENT: Atraumatic, PERRLA, EOMI, Normocephalic Neck: Supple, No JVD, Negative Carotid Bruits Lungs: Clear to auscultation, Normal air movement Cardiovascular: Regular rate, No murmurs Abdomen: Bowel Sounds Present, Soft, Non Tender Extremities: No edema, Capillary Refill Less than 3 Seconds Skin: - - Cord like erythema from medial upper thigh to medial lower leg. Musculoskeletal: Tenderness - spinous process of lumbar area Neurological: Cranial nerves II-XII grossly intact Psych/Mental Status: Normal Affect, Appropriate Laboratory Results 04/30/20 19:05: Sodium 130 L, Potassium 3.4 L, Chloride 95 L, Carbon Dioxide 30.0, Anion Gap 5, BUN 18, Creatinine 1.15, Estim Creat Clear Calc 99.34, Est GFR (MDRD) Af Amer 93, Est GFR (MDRD) Non-Af 77, BUN/Creatinine Ratio 15.7, Glucose 114 H, Calcium 7.7 L, Total Bilirubin 0.50, AST 22, ALT 32, Alkaline Phosphatase 66, Troponin I < 0.015, Total Protein 7.0, Albumin 2.8 L, Globulin 4.2, Albumin/Globulin Ratio 0.7 L 04/30/20 19:05: WBC 6.5, RBC 4.76, Hgb 13.7, Hct 40.4, MCV 84.9, MCH 28.8, MCHC 33.9, RDW Std Deviation 39.0, RDW Coeff of [place] 12.6, Plt Count 105 L, MPV 12.9 H , Immature Gran % (Auto) 0.600, Neut % (Auto) 83.3 H, Lymph % (Auto) 7.9 L, [place] % (Auto) 6.6, Eos % (Auto) 1.1, Baso % (Auto) 0.5, Absolute Neuts (auto) 5.4, Absolute Lymphs (auto) 0.51 L, Nucleated RBC % 0, Differential Comment SCANNED 04/30/20 19:05: PT 16.6 H, INR 1.4, APTT 33.9 04/30/20 19:05: Lactic Acid 2.0 04/30/20 19:36: Urine Color Yellow, Urine Clarity Clear, Urine pH 6.5, Ur Specific [place] 1.015, Urine Protein 100 H, Urine Glucose (UA) Normal, Urine Ketones 5 H, Urine Occult Blood 150 H, Urine Nitrite Negative, Urine Bilirubin 1 H, Urine Urobilinogen 12 H, Ur Leukocyte Esterase 25 H, Urine RBC 0-5 SEEN, Urine WBC 5-10 SEEN, Ur Squamous Epith Cells 0 SEEN, Urine Bacteria 1+, Urine Mucus 0 SEEN Current Medications Vancomycin HCl 1,250 mg/ (Sodium Chloride) 275 mls @ 167 mls/hr IV X1 ONE Stop: 04/30/20 21:18 Last Admin: 04/30/20 20:00 Dose: 167 mls/hr Documented by: Sodium Chloride () 1,000 mls @ 999 mls/hr IV .Q1H1M ONE Stop: 04/30/20 22:03 Assessment/Plan All Active Problems Sepsis (Acute) Bacteremia (Acute) Cystitis (Acute) The patient is a 34 year old M with a significant history of hepatitis C; IV drug use; infective endocarditis status post surgery who has a fever; tachycardia; and tachypnea; and who has acute superficial thrombophlebitis close to great saphenous vein; dark urine with abnormal urinalysis; staph aureus bacteremia. Sepsis Secondary to bacteremia Blood cultures obtained on 04/29/2020 on the ED visit showed Staphylococcus aureus. Blood cultures ordered 04/30/2020 at the ED, follow. He was started on vancomycin emergency department. Vancomycin continued, pharmacy to dose. We will add ceftriaxone in the setting of UTI. However it is likely that his bacteremia is secondary to Staphylococcus secondary to endocarditis. With his history of endocarditis which he reports nearly killed him and had to have a clean up open heart surgery, rule out endocarditis. Echocardiogram ordered. Infectious disease consult. We will get MRI of his thoracic and lumbar spine. Ultrasound of right lower extremity ordered. Opioid dependence Daily use of heroin with last use on the day of presentation. Will start Subutex taper with other adjunctive medications. Counseled. Superficial thrombophlebitis of the left leg Started Eliquis on 04/30/2020 face to ED visits. Eliquis continued Acute cystitis Vancomycin and ceftriaxone as above. Hypokalemia Normal saline with 40 mEq of potassium ordered. Trend BMP. Pseudohypocalcemia Calcium was 7.7 Likely secondary to hypo-albuminemia. Albumin of 2.8. DVT prophylaxis Not indicated since the patient is on Eliquis for superficial thrombophlebitis. Inpatient E&M: 83944 Init Hosp L3
--- NOTE | 2020-04-30 22:16 | ECHOCS_ITS ---
Version 2 Reason For Study: Possible Endocarditis Procedure This was a 2D Doppler, Color Flow transthoracic echocardiogram. The study was technically difficult. Contrast injection was performed. Exam performed portable in patient room. Left Ventricle Normal LV size. Left ventricular systolic function is lower limits of normal. The estimated ejection fraction is 50 %. No regional wall motion abnormalities noted. Right Ventricle Normal RV size. Normal systolic function. Atria Normal left atrium. The right atrium is moderately enlarged. Mitral Valve Normal mitral valve. Tricuspid Valve Normal tricuspid valve. Mild to moderate (1-2+) eccentric tricuspid valve insufficiency. An annuloplasty ring is noted in the tricuspid position. Aortic Valve Normal aortic valve. Trisinus/trileaflet aortic valve. Pulmonic Valve Normal pulmonic valve. Great Vessels Normal aortic root. The pulmonary artery is normal size. Normal inferior vena cava. Pericardium/Pleural No pericardial effusion. Medication Diluted definity 2ml given slow IV push to enhance endocardial definition. MMode/2D Measurements & Calculations LVIDd: 4.6 cm IVSd: 1.0 cm Ao root diam: 3.7 cm LVIDs: 2.5 cm LVPWd: 1.1 cm LA dimension: 3.5 cm FS: 45.3 % LAV(MOD-bp): 36.0 ml LA A4 area: 16.4 cm2 RA A4 area: 26.3 cm2 LAV(MOD-bp) Indexed: 17.4 ml/m2 LAV(MOD-sp2): 30.6 ml LAV(MOD-sp4): 38.4 ml Time Measurements MV dec time: 0.22 sec Doppler Measurements & Calculations MV E max aron: 95.9 cm/sec Lat Peak E' Aron: 15.2 cm/sec Med Peak E' Aron: 10.5 cm/sec MV A max aron: 55.1 cm/sec E/E' lat: 6.3 E/E' med: 9.2 MV E/A: 1.7 MV V2 max: 126.1 cm/sec MV P1/2t max aron: 126.8 cm/sec Ao V2 max: 111.6 cm/sec MV max P.4 mmHg MV P1/2t: 65.9 msec Ao max P.0 mmHg MV V2 mean: 58.3 cm/sec MV dec slope: 563.9 cm/sec2 MV mean P.7 mmHg MV V2 VTI: 35.6 cm MVA(P1/2t): 3.3 cm2 LV V1 max: 100.0 cm/sec PA V2 max: 93.4 cm/sec PI dec slope: 195.5 cm/sec2 LV V1 max P.0 mmHg TR max aron: 283.0 cm/sec TR max P.1 mmHg Interpretation Summary Normal LV size. Left ventricular systolic function is lower limits of normal. The estimated ejection fraction is 50 %. An annuloplasty ring is noted in the tricuspid position. Mild to moderate (1-2+) eccentric tricuspid valve insufficiency. Contrast injection was performed. Ordering Physician: Pipe Nunez Referring Physician: ronda PCP Performed By: Austyn Dee RCS
--- NOTE | 2020-04-30 22:16 | VDLE_ITS ---
Reason For Study: PAIN (FOOT) RIGHT LEFT GSV is normal. CFV is compressible, spontaneous, phasic, CFV is compressible, spontaneous, phasic, competent, and demonstrates normal competent and demonstrates normal augmentation. augmentation. NO CHANGE IN GSV FROM PREVIOUS EXAM FV is compressible, spontaneous, phasic, 04/30/2020. competent and demonstrates normal augmentation. POP V is compressible, spontaneous, phasic, competent and demonstrates normal augmentation. T/P Trunk is compressible. PTV is compressible. RT PerV is compressible. Procedure This is a venous duplex using B-mode, color flow and spectral Doppler. Exam performed portable in patient room. The exam was diagnostic. A preliminary report was called and/or faxed to [facility]. Interpretation Summary Deep veins of the right lower extremity are patent and compressible segmentally. There is no evidence of right lower extremity deep vein thrombosis. Valvular competence appears intact within the proximal deep venous system on the right . The right great saphenous vein appears patent and compressible segmentally. Acute superficial thrombophlebitis is noted in the left great saphenous vein from the left ankle to the left sapheno-femoral junction, though not extending into the deep venous system, and unchanged from a prior study on 04/30/2020. Ordering Physician: Pipe Nunez Performed By: Padmini Rodriguez, DELBERT, RVT
[2020-04-30] MEDS: Potassium Chloride 40 MEQ in 0.9% Normal Saline 1,000 ML 100 MEQ IV (22:56)
[2020-04-30] MEDS: Ceftriaxone 1 GM/50 ML BAG IV (22:57)
[2020-04-30 23:12] LABS: Reflex Lactate? Y
[2020-04-30] MEDS: APIXABAN 5 MG TABLET PO (23:24)
[2020-04-30 23:46] LABS: Amphetamine Urine VISTA POSITIVE (<1000 ng/mL); Barbiturate Urine VISTA NEGATIVE (< 200 ng/mL); Benzodiazepine Urine VISTA NEGATIVE (< 200 ng/mL); Cocaine Urine VISTA NEGATIVE (< 300 ng/mL); Ecstacy Urine VISTA POSITIVE (< 500 ng/mL); Methadone Urine VISTA NEGATIVE (< 300 ng/mL); PCP Urine VISTA NEGATIVE (< 25 ng/mL); THC Urine VISTA NEGATIVE (< 50 ng/mL); Vista UDS pH Range 6
--- NOTE | 2020-04-30 23:50 | PCM.RX.CS ---
Consult Pharmacy has been consulted to manage selected antiobiotic: Vancomycin Type of Consult: New start Labs: Sodium 130 mmol/L (136-145) L 04/30/20 19:05 Potassium 3.4 mmol/L (3.5-5.1) L 04/30/20 19:05 Chloride 95 mmol/L (98-107) L 04/30/20 19:05 Carbon Dioxide 30.0 mmol/L (21.0-32.0) 04/30/20 19:05 Anion Gap 5 (5-15) 04/30/20 19:05 BUN 18 mg/dL (7-18) 04/30/20 19:05 Creatinine 1.15 mg/dL (0.70-1.30) 04/30/20 19:05 Est GFR (MDRD) Af Amer 93 mL/min (>60) 04/30/20 19:05 Est GFR (MDRD) Non-Af 77 mL/min (>60) 04/30/20 19:05 BUN/Creatinine Ratio 15.7 RATIO (-) 04/30/20 19:05 Glucose 114 mg/dL (74-106) H 04/30/20 19:05 Weight used for dosin.3 kg Estimated Creatinine Clearance: 99.3 Goal Trough: 10-15 mcg/mL Pharmacy Plan for Drug Dosing: Pharmacy Service will continue to monitor and adjust dosing as required. Medications Vancomycin HCl 1,250 mg/ (Sodium Chloride) 275 mls @ 167 mls/hr IV Q12H ZAHRAA Discontinued Medications Vancomycin HCl 1,250 mg/ (Sodium Chloride) 275 mls @ 167 mls/hr IV X1 ONE Stop: 04/30/20 21:18 Last Admin: 04/30/20 21:56 Dose: Infused Documented by: Follow-Up Labs: Trough Vancomycin Labs to be done on [date and time ordered]: 05/02 @ 0320
[2020-05-01] VITALS (9 sets, daily range): BP systolic 114–140; BP diastolic 65–80; PULSE 74–86; RESP 16–18; TEMP 36.9–37.3; O2SAT 94–99
[2020-05-01 00:44] LABS: Lactic Acid 1.7 mmol/L (0.4-1.9)
[2020-05-01 01:05] LABS: Alcohol, Blood (Medical)-Serum < 3.0 mg/dL
[2020-05-01] MEDS: Acetaminophen 325 MG Tablet 650 MG PO (06:16)
[2020-05-01 06:26] LABS: Basophil# 0.03 X10^3/uL; Basophil% 0.5 % (0-1); Eosinophil# 0.14 X10^3/uL; Eosinophils% 2.4 % (0-5); Hematocrit 41.5 % (40-54); Hemoglobin 13.3 g/dL (13.0-16.5); Lymphocyte % 15.4 % (19-41); Mean Corpuscular Hgb 28.4 pg (27.0-32.0); Mean Corpuscular Volume 88.5 fL (80-94); Mean Platelet Vol. 12.8 fl (6.2-12.0); Monocyte# 0.71 X10^3/uL; Monocyte% 12.1 % (0-10); NRBC Flagged by Analyzer 0 % (0-5); Neutrophil # 4.03 X10^3/uL (2.7-7.7); Neutrophil % 68.9 % (47-70); POSITIVE COUNT YES; Platelet Count 98 K/mm3 (150-450); RBC Distribution Width CV 12.9 % (11.6-14.6); RBC Distribution Width SD 41.8 fl (35.1-43.9); Red Blood Count 4.69 M/mm3 (4.6-6.2); White Blood Count 5.9 K/mm3 (4.4-11.0)
[2020-05-01 06:33] LABS: Differential Indicated SCAN CRITERIA MET
[2020-05-01 06:42] LABS: Anion Gap 5 (5-15); BUN 12 mg/dL (7-18); BUN/Creat Ratio 14.6 RATIO (10-20); Calcium,Total 7.5 mg/dL (8.5-10.1); Chloride 105 mmol/L (98-107); Creatinine, Serum 0.82 mg/dL (0.70-1.30); EST Glomerular Filtration Rate 114 mL/min (>60); Est Glom Filt Rate - Afr Amer 137 mL/min (>60); Estimated Creatinine Clearance 139.32 ml/min; Glucose 92 mg/dL (74-106); Potassium 3.9 mmol/L (3.5-5.1); Sodium Level 136 mmol/L (136-145)
[2020-05-01 07:12] LABS: Differential Comment SCANNED
[2020-05-01] MEDS: APIXABAN 5 MG TABLET PO ×2 (08:32→22:06)
--- NOTE | 2020-05-01 08:33 | PN_ITS ---
Patient Problems: Active and Suspected Problems Sepsis (Acute) Bacteremia (Acute) Cystitis (Acute) Reason for Visit: bacteremia Subjective: Complains of pain in dorsum of right foot. Pain in medial leg where clot is. Vitals/I&O's: Vital Signs Temp Pulse Resp BP Pulse Ox 37.3 C H 86 16 114/65 96 05/01/20 03:44 05/01/20 07:30 05/01/20 03:44 05/01/20 03:44 05/01/20 07:15 Oxygen Delivery Method Room Air Weight: 84.368 kg Body Mass Index (BMI) 25.2 Finger Stick Blood Glucose 108 Intake and Output for Last 24 Hours 04/29/20 04/30/20 05/01/20 23:59 23:59 23:59 Intake Total 2314.25 / 2314.25 2256.67 / 2256.67 Output Total 1000 / 1000 Balance 2314.25 / 2314.25 1256.67 / 1256.67 General: No apparent distress HEENT: Atraumatic, Normocephalic Oral: Moist Mucosa, No Gingival or Mucosal Lesions/ Ulcerations Neck: No Nodes, Thyroid Normal Size and Texture Lungs: Clear to auscultation, Normal air movement, No rhonchi, No wheeze Cardiovascular: Regular rate, Regular Rhythm, Normal S1, Normal S2 Abdomen: Bowel Sounds Present, Soft, Non Tender, Non-Distended, No Hepato- splenomegaly Extremities: - - TTP on dorsum of right foot. No edema nor joint effusion noted. Palpable cord on medial left leg extending to groin Psych/Mental Status: Normal Affect, Appropriate Microbiology Past 72 Hours 04/30/20 19:05 Blood Culture (Wb) - Other Blood Culture - Preliminary Laboratory Results 04/30/20 19:05: Sodium 130 L, Potassium 3.4 L, Chloride 95 L, Carbon Dioxide 30.0, Anion Gap 5, BUN 18, Creatinine 1.15, Estim Creat Clear Calc 99.34, Est GFR (MDRD) Af Amer 93, Est GFR (MDRD) Non-Af 77, BUN/Creatinine Ratio 15.7, Glucose 114 H, Calcium 7.7 L, Total Bilirubin 0.50, AST 22, ALT 32, Alkaline Phosphatase 66, Troponin I < 0.015, Total Protein 7.0, Albumin 2.8 L, Globulin 4.2, Albumin/Globulin Ratio 0.7 L 04/30/20 19:05: WBC 6.5, RBC 4.76, Hgb 13.7, Hct 40.4, MCV 84.9, MCH 28.8, MCHC 33.9, RDW Std Deviation 39.0, RDW Coeff of Chase 12.6, Plt Count 105 L, MPV 12.9 H , Immature Gran % (Auto) 0.600, Neut % (Auto) 83.3 H, Lymph % (Auto) 7.9 L, Frederick % (Auto) 6.6, Eos % (Auto) 1.1, Baso % (Auto) 0.5, Absolute Neuts (auto) 5.4, Absolute Lymphs (auto) 0.51 L, Nucleated RBC % 0, Differential Comment SCANNED 04/30/20 19:05: PT 16.6 H, INR 1.4, APTT 33.9 04/30/20 19:05: Lactic Acid 2.0 04/30/20 19:36: Urine Color Yellow, Urine Clarity Clear, Urine pH 6.5, Ur Specific [place] 1.015, Urine Protein 100 H, Urine Glucose (UA) Normal, Urine Ketones 5 H, Urine Occult Blood 150 H, Urine Nitrite Negative, Urine Bilirubin 1 H, Urine Urobilinogen 12 H, Ur Leukocyte Esterase 25 H, Urine RBC 0-5 SEEN, Urine WBC 5-10 SEEN, Ur Squamous Epith Cells 0 SEEN, Urine Bacteria 1+, Urine Mucus 0 SEEN 04/30/20 19:36: Urine Opiates Screen POSITIVE H, Urine Methadone Screen NEGATIVE, Ur Barbiturates Screen NEGATIVE, Ur Phencyclidine Scrn NEGATIVE, Ur Amphetamines Screen POSITIVE H, U Methamphetamin-MDMA POSITIVE H, U Benzodiazepines Scrn NEGATIVE, Urine Cocaine Screen NEGATIVE, U Cannabinoids Screen NEGATIVE, Ur Drug Screen Comment 05/01/20 00:10: Lactic Acid 1.7 05/01/20 00:10: Ethyl Alcohol < 3.0 05/01/20 05:20: WBC 5.9, RBC 4.69, Hgb 13.3, Hct 41.5, MCV 88.5, MCH 28.4, MCHC 32.0 D, RDW Std Deviation 41.8, RDW Coeff of Chase 12.9, Plt Count 98 L, MPV 12.8 H, Immature Gran % (Auto) 0.700, Neut % (Auto) 68.9, Lymph % (Auto) 15.4 L, Frederick % (Auto) 12.1 H, Eos % (Auto) 2.4, Baso % (Auto) 0.5, Absolute Neuts (auto) 4.0, Absolute Lymphs (auto) 0.90, Nucleated RBC % 0, Differential Comment SCANNED 05/01/20 05:20: Sodium 136, Potassium 3.9, Chloride 105, Carbon Dioxide 26.0, Anion Gap 5, BUN 12, Creatinine 0.82, Estim Creat Clear Calc 139.32, Est GFR (MDRD) Af Amer 137, Est GFR (MDRD) Non-Af 114, BUN/Creatinine Ratio 14.6, Glucose 92, Calcium 7.5 L Current Medications Acetaminophen (Acetaminophen 325 Mg Tablet) 650 mg PO Q6H PRN PRN PRN Reason: Pain Score 1-10/Temp > 100.7 F Last Admin: 05/01/20 06:16 Dose: 650 mg Documented by: Apixaban (Apixaban 5 Mg Tablet) 5 mg PO BID ZAHRAA Last Admin: 05/01/20 08:32 Dose: 5 mg Documented by: Buprenorphine HCl (Buprenorphine Hcl 2 Mg Tab.Subl) 0 mg SL Q8H ZAHRAA; Taper Stop: 05/03/20 22:59 Clonidine (Clonidine Hcl 0.1 Mg Tablet) 0.1 mg PO Q8H PRN PRN PRN Reason: RESTLESSNESS Dicyclomine HCl (Dicyclomine 10 Mg Capsule) 20 mg PO Q6H PRN PRN PRN Reason: Abdominal Discomfort Gabapentin (Gabapentin 300 Mg Capsule) 300 mg PO Q8H PRN PRN PRN Reason: moderate to severe anxiety Hydroxyzine Pamoate (Hydroxyzine Joana 25 Mg Capsule) 50 mg PO Q6H PRN PRN PRN Reason: mild anxiety Vancomycin IV Pharmacy to Dose (1 ea/ Sodium Chloride) 500 mls @ 250 mls/hr IV X1 PRN; Protocol PRN Reason: Rx to Dose Ceftriaxone Sodium (Rocephin) 1 gm in 50 mls @ 100 mls/hr IV QHS [facility] Last Infusion: 04/30/20 23:30 Dose: Infused Documented by: Potassium Chloride 40 meq/ (Sodium Chloride) 1,020 mls @ 100 mls/hr IV .[id number] [facility] Last Infusion: 05/01/20 08:30 Dose: 0 mls/hr Documented by: Sodium Chloride () 250 mls @ 15 mls/hr IV .[id number] PRN PRN Reason: Saline Flush Sodium Chloride () 250 mls @ 15 mls/hr IV .[id number] PRN PRN Reason: Additional IVPB Infusion Vancomycin HCl 1,250 mg/ (Sodium Chloride) 275 mls @ 167 mls/hr IV Q12H [facility] Last Admin: 05/01/20 08:24 Dose: 167 mls/hr Documented by: Influenza Virus Vaccine Quadrival (Influenza Vaccine (6mos+)/Pf 0.5 Ml Syringe) 0.5 ml IM .ONCE ONE Stop: 05/01/20 10:01 Last Admin: 05/01/20 08:31 Dose: Not Given Documented by: Loperamide HCl (Loperamide 2 Mg Capsule) 2 mg PO Q4H PRN PRN PRN Reason: LOOSE STOOLS Methocarbamol (Methocarbamol 750 Mg Tablet) 1,500 mg PO Q6H PRN PRN PRN Reason: MUSCLE SPASM Nicotine (Nicotine 21 Mg Patch) 21 mg TRANSDERM. DAILY [facility] Last Admin: 05/01/20 08:32 Dose: 21 mg Documented by: Ondansetron HCl (Ondansetron 4 Mg/2 Ml Vial) 4 mg IV Q8H PRN PRN PRN Reason: NAUSEA/VOMITING Ondansetron HCl (Ondansetron 8 Mg Tablet) 8 mg PO Q8H PRN PRN PRN Reason: NAUSEA Sodium Chloride (0.9% Saline Lock 10 Ml Syringe) 10 - 40 ml IV UD PRN PRN Reason: SALINE FLUSH Trazodone HCl (Trazodone 100 Mg Tablet) 100 mg PO QHS PRN PRN PRN Reason: INSOMNIA STROKE Vital Signs/Narrative: Vital Signs Pulse Pulse Ox 05/01/20 07:30 86 05/01/20 07:15 96 05/01/20 05:22 76 Medical Necessity - Tobacco Use Smoking Status: Current every day smoker Tobacco Use: Cigarettes Assessment/Plan All Active Problems Sepsis (Acute) Bacteremia (Acute) Cystitis (Acute) 1. sepsis: ruled out. did not meed 2/4 SIRS criteria. 2. Bacteremia: from the . S. aureus. Await final culture results. Continue with vancomycin. follow up repeat BCx. Follow up MRI of T and L spine. follow up 2d echo. Known history of endocarditis, which is still a concern, however, more likely could be from the LLE SVT. ID consult. 3. LLE SVT, complicated: DVT ruled out. on apixaban. Likely 2/2 to injection drug use as patient states he has injected in that area. May be source of bacteremia. Noted to be within 0.59 cm of left sapheno-femoral junction. Given close proximity to deep system, relatively large size apixaban for 3 months. 4. opiate abuse, chronic: on buprenorphine taper through the . [employer] to see. 5. Asymptomatic bacteruria: UTI ruled out. DC ctx. 6. VTE prophylaxis: anticoagulated. Inpatient E&M: 09010 Subs Hosp L2
--- NOTE | 2020-05-01 08:59 | NURSING ---
pt mother, Kerline Baez, called in for update on pt status. provided brief update about tests planned for today, Kerline asked if she could come visit pt and reported that this RN would need to check with pt. pt reported that he did not want any visitors at all. he also stated that he would call her and tell her that he doesn't want any visitors and that she doesn't need to call all the time, she's just nosey.
--- NOTE | 2020-05-01 09:00 | MRI_ITS ---
STUDY: MRI THORACIC SPINE WITH AND WITHOUT CONTRAST REASON FOR EXAM: Male, 34 years old. discitis, back pain, hx iv drug use -- pain low back , left leg, rt foot x 3 days TECHNIQUE: IV dotarem 15ml was administered for the contrast portion of the examination. COMPARISON: None. FINDINGS: Normal kyphosis of the thoracic spine. There is no substantial scoliosis. T1-2, T2-3, T3-4, T4-5, T5-6, T6-7, T7-8, T8-9, T9-10, T10-11, T11-12: Normal endplates. Normal disc hydration, heights and morphology of the corresponding intervertebral discs. Normal central canal and intervertebral neural foramina at the corresponding levels. Normal visualized thoracic cord. Normal conus medullaris that terminates at the . The soft tissue structures are unremarkable. There is no enhancing abnormality. Median sternotomy wires. MRI/Spine Thoracic W/WO Contrast IMPRESSION: No evidence of discitis or osteomyelitis. No evidence of cord pathology or epidural abscess. Electronically Signed: Matthew Schaeffer MD at 18:08 EDT Tel , Service support ,
--- NOTE | 2020-05-01 09:00 | MRI_ITS ---
STUDY: MRI LUMBAR SPINE WITH AND WITHOUT CONTRAST REASON FOR EXAM: Male, 34 years old. discitis, back pain, hx iv drug use -- pain low back , left leg, rt foot x 3 days TECHNIQUE: Standardized fat and water weighted pulse sequences were obtained in the sagittal and axial planes. IV dotarem 15ml was administered for the contrast portion of the examination. COMPARISON: None FINDINGS: T12-L1: Normal endplates. Normal disc height, hydration and morphology. Normal bilateral facet joints. Normal central canal and bilateral lateral recesses. Normal bilateral intervertebral neural foramina. Normal lumbar lordosis. There is no substantial scoliosis. Normal conus medullaris that terminates at the L1 level. L1-2: Normal endplates. Normal disc height, hydration and morphology. Normal bilateral facet joints. Normal central canal and bilateral lateral recesses. Normal bilateral intervertebral neural foramina. L2-3: No evidence of significant disc disease. Bilateral facet hypertrophy. No evidence of significant central canal or foraminal stenosis. L3-4: No evidence of significant disc disease. Bilateral facet hypertrophy. No evidence of significant central canal or foraminal stenosis. L4-5: No evidence of significant disc disease. Bilateral facet hypertrophy. No evidence of significant central canal or foraminal stenosis. L5-S1: Normal endplates. Normal disc height, hydration and morphology. Normal bilateral facet joints. Normal central canal and bilateral lateral recesses. Normal bilateral intervertebral neural foramina. Normal visualized sacral ala. Normal visualized paraspinous soft tissue structures. MRI/Spine Lumbar W/WO Contrast IMPRESSION: No evidence of discitis, osteomyelitis, or epidural abscess. No evidence of significant disc disease or nerve root impingement. Electronically Signed: Mtathew Schaeffer MD at 17:49 EDT Tel , Service support ,
[2020-05-01] MEDS: Buprenorphine HCl 2 MG TAB.SUBL SL ×2 (10:40→17:18)
[2020-05-01] MEDS: Potassium Chloride 40 MEQ in 0.9% Normal Saline 1,000 ML 100 MEQ IV (10:40)
--- NOTE | 2020-05-01 11:55 | CASEMGMT ---
RN SE Face to Face with patient for initial transition planning/care coordination assessment. RN CM introduced self and role at [facility]. Patient lying in bed, alert and oriented. Patient willing to participate in assessment and is able to answer all questions appropriately. Care providers, pharmacy, and demographics verified. Patient wishes to discharge home, denies need for home health at this time. Patient states he has no further needs or concerns at this time. CM to follow for discharge planning needs that may arise. PCP: No PCP, CM will provide patient with list of PCPs Specialists: none Preferred Pharmacy: [facility] Insurance: [employer] Prescription Benefit: Yes Living Will/HPOA: none LNOK: mother Living Arrangements: Patient lives with mother in a 2 story home with bed and bath on the first floor. Patient states he is independent at home. Transportation: self, mother DME/HHC: Patient denies DME or Previous HHC. Disposition Plan: Patient to discharge home with family support and follow-up plans in place. Will monitor for need for IV ATBs. Елена GE, RN, CM
[2020-05-01] MEDS: Dicyclomine 10 MG Capsule 20 MG PO ×2 (12:17→22:06)
[2020-05-01] MEDS: Gabapentin 300 MG Capsule PO (12:17)
[2020-05-01] MEDS: Loperamide 2 MG Capsule PO (12:17)
[2020-05-01] MEDS: cloNIDine HCl 0.1 MG Tablet PO ×2 (12:17→22:07)
[2020-05-01] MEDS: 0.9% Saline Lock 10 ML Syringe IV (15:00)
[2020-05-01] MEDS: Ondansetron 8 MG Tablet PO (15:04)
[2020-05-01] MEDS: hydrOXYzine PAM 25 MG Capsule 50 MG PO ×2 (15:04→22:07)
[2020-05-01] MEDS: Methocarbamol 750 MG Tablet 1500 MG PO ×2 (15:04→22:06)
--- NOTE | 2020-05-01 16:08 | CASEMGMT ---
Social Work Note SW reviewed chart. Pt has history of substance abuse/heroin use. Pt was admitted to [facility] 02/01/2020-02/04/2020 for Opioid withdrawal and Critical access hospital saw pt. SW met with pt regarding substance abuse. SW introduced self and role at [facility]. Pt is alert and orientated x3. Pt denied any current substance use, denied wanting to talk to Critical access hospital. SW provided pt with PCP list and Sarah Gaviria information. Pt denied additional needs or concerns at this time. Елена Benavides LUBRICATING SPECIALIST, [employer]
--- NOTE | 2020-05-01 17:18 | ECHOTEE_ITS ---
Reason For Study: MRSA Bacteremia Medication HENRI probe 6VT-D (SN [id number]) passed with minimal difficulty. No complications were noted. Cetacaine Topical Delta given X5 orally. Versed 4 mg given slow IVP. Performed a rapid injection of agitated mix of 9 cc saline and 1cc air to assess for atrial septal defect. Technically difficult procedure d/t lack of cooperatiion. Left Ventricle Left ventricular systolic function is normal. The estimated ejection fraction is 55 %. No regional wall motion abnormalities noted. Right Ventricle Normal systolic function. Atria No doppler evidence for ASD. Bubble contrast study negative for right to left interatrial shunt. Normal left atrium. There is no sponatenous contrast in the left atrium. No thrombus is detected in the left atrial appendage. The right atrium is severely enlarged. There is no sponatenous contrast in the right atrium. No obvious RA/appendage thrombus identified. Mitral Valve There is no mitral annular calcification. Normal mitral valve. Mild (1+) mitral valve insufficiency. Tricuspid Valve Myxomatous appearing tricuspid valve. Moderate (2+) eccentric tricuspid valve insufficiency. An annuloplasty ring is noted in the tricuspid position. Aortic Valve Trisinus/trileaflet aortic valve. Normal aortic valve. Pulmonic Valve The pulmonic valve is not well visualized. Trivial pulmonic valve insufficiency. Vessels The thoracic aorta was not well visualized. Pericardium No pericardial effusion. Interpretation Summary Left ventricular systolic function is normal. The estimated ejection fraction is 55 %. There is no sponatenous contrast in the left atrium. No thrombus is detected in the left atrial appendage. The right atrium is severely enlarged. There is no sponatenous contrast in the right atrium. No obvious RA/appendage thrombus identified. Mild (1+) mitral valve insufficiency. An annuloplasty ring is noted in the tricuspid position. Myxomatous appearing tricuspid valve. Moderate (2+) eccentric tricuspid valve insufficiency. Trivial pulmonic valve insufficiency. Bubble contrast study negative for right to left interatrial shunt. Comment: 2D echocardiographic images demonstrate a large (approximately 1.4 cm x 1.6 cm) mobile echodensity on the atrial side of the tricuspid valve apparatus with a differential diagnosis including vegetation. Ordering Physician: Bobby Stoll Performed By: Caron Peterson RDCS, RVT
--- NOTE | 2020-05-01 17:19 | CON.PCM_ITS ---
Problem List (1) Bacteremia Status: Acute Reason for Consult: bacteremia Consulted by: Dr. 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 Typically injects in legs, developed pain on top of his R foot. No abscess or redness or drainage. No ot her joint pain. Does re-use needles, does not share or lick needles. Came to ED with fever on 04/29, given keflex. Bcx turned (+) for mssa. Came back, admitted on vanc. Full ROS performed and neg except as noted above. - Medical History Past Medical History (Chronic Problems): Chronic Problems History of infective endocarditis (Chronic) Hypertension (Chronic) Heroin abuse (Chronic) Allergies/Adverse Reactions: Allergies No Known Allergies Allergy (Verified 04/30/20 10:59) Home Medications: Ambulatory Orders Medication Instructions Recorded Apixaban [Eliquis] 5 mg PO BID #72 tab 04/30/20 Cephalexin [Keflex] 500 mg PO [id number] 04/30/20 Zofran Odt 4 mg SL PRN PRN 04/30/20 - Social History Tobacco Use: cigarettes Drug Use: heroin Vital Signs Temp Pulse Resp BP Pulse Ox 98.6 F 80 16 136/80 H 94 05/01/20 15:00 05/01/20 15:30 05/01/20 15:00 05/01/20 15:00 05/01/20 15:00 Oxygen Delivery Method Room Air Weight: 84.4 kg Body Mass Index (BMI) 25.2 Finger Stick Blood Glucose 108 Microbiology Past 72 Hours 04/30/20 19:36 Urine Culture - Preliminary Urine, Clean Catch Culture exhibits no growth. 04/30/20 19:05 Blood Culture - Preliminary Blood Culture (Wb) - Other Laboratory Tests Past 24 Hrs 04/30/20 04/30/20 04/30/20 19:05 19:05 19:05 WBC 6.5 RBC 4.76 Hgb 13.7 Hct 40.4 MCV 84.9 MCH 28.8 MCHC 33.9 RDW Std Deviation 39.0 RDW Coeff of [place] 12.6 Plt Count 105 L MPV 12.9 H Immature Gran % (Auto) 0.600 Neut % (Auto) 83.3 H Lymph % (Auto) 7.9 L [place] % (Auto) 6.6 Eos % (Auto) 1.1 Baso % (Auto) 0.5 Absolute Neuts (auto) 5.4 Absolute Lymphs (auto) 0.51 L Nucleated RBC % 0 Differential Comment SCANNED PT 16.6 H INR 1.4 APTT 33.9 Sodium 130 L Potassium 3.4 L Chloride 95 L Carbon Dioxide 30.0 Anion Gap 5 BUN 18 Creatinine 1.15 Estim Creat Clear Calc 99.34 Est GFR (MDRD) Af Amer 93 Est GFR (MDRD) Non-Af 77 BUN/Creatinine Ratio 15.7 Glucose 114 H Lactic Acid Calcium 7.7 L Total Bilirubin 0.50 AST 22 ALT 32 Alkaline Phosphatase 66 Troponin I < 0.015 Total Protein 7.0 Albumin 2.8 L Globulin 4.2 Albumin/Globulin Ratio 0.7 L Urine Color Urine Clarity Urine pH Ur Specific [place] Urine Protein Urine Glucose (UA) Urine Ketones Urine Occult Blood Urine Nitrite Urine Bilirubin Urine Urobilinogen Ur Leukocyte Esterase Urine RBC Urine WBC Ur Squamous Epith Cells Urine Bacteria Urine Mucus Urine Opiates Screen Urine Methadone Screen Ur Barbiturates Screen Ur Phencyclidine Scrn Ur Amphetamines Screen U Methamphetamin-MDMA U Benzodiazepines Scrn Urine Cocaine Screen U Cannabinoids Screen Ur Drug Screen Comment Ethyl Alcohol 04/30/20 04/30/20 04/30/20 19:05 19:36 19:36 WBC RBC Hgb Hct MCV MCH MCHC RDW Std Deviation RDW Coeff of [place] Plt Count MPV Immature Gran % (Auto) Neut % (Auto) Lymph % (Auto) [place] % (Auto) Eos % (Auto) Baso % (Auto) Absolute Neuts (auto) Absolute Lymphs (auto) Nucleated RBC % Differential Comment PT INR APTT Sodium Potassium Chloride Carbon Dioxide Anion Gap BUN Creatinine Estim Creat Clear Calc Est GFR (MDRD) Af Amer Est GFR (MDRD) Non-Af BUN/Creatinine Ratio Glucose Lactic Acid 2.0 Calcium Total Bilirubin AST ALT Alkaline Phosphatase Troponin I Total Protein Albumin Globulin Albumin/Globulin Ratio Urine Color Yellow Urine Clarity Clear Urine pH 6.5 Ur Specific [place] 1.015 Urine Protein 100 H Urine Glucose (UA) Normal Urine Ketones 5 H Urine Occult Blood 150 H Urine Nitrite Negative Urine Bilirubin 1 H Urine Urobilinogen 12 H Ur Leukocyte Esterase 25 H Urine RBC 0-5 SEEN Urine WBC 5-10 SEEN Ur Squamous Epith Cells 0 SEEN Urine Bacteria 1+ Urine Mucus 0 SEEN Urine Opiates Screen POSITIVE H Urine Methadone Screen NEGATIVE Ur Barbiturates Screen NEGATIVE Ur Phencyclidine Scrn NEGATIVE Ur Amphetamines Screen POSITIVE H U Methamphetamin-MDMA POSITIVE H U Benzodiazepines Scrn NEGATIVE Urine Cocaine Screen NEGATIVE U Cannabinoids Screen NEGATIVE Ur Drug Screen Comment Ethyl Alcohol 05/01/20 05/01/20 05/01/20 00:10 00:10 05:20 WBC 5.9 RBC 4.69 Hgb 13.3 Hct 41.5 MCV 88.5 MCH 28.4 MCHC 32.0 D RDW Std Deviation 41.8 RDW Coeff of [place] 12.9 Plt Count 98 L MPV 12.8 H Immature Gran % (Auto) 0.700 Neut % (Auto) 68.9 Lymph % (Auto) 15.4 L [place] % (Auto) 12.1 H Eos % (Auto) 2.4 Baso % (Auto) 0.5 Absolute Neuts (auto) 4.0 Absolute Lymphs (auto) 0.90 Nucleated RBC % 0 Differential Comment SCANNED PT INR APTT Sodium Potassium Chloride Carbon Dioxide Anion Gap BUN Creatinine Estim Creat Clear Calc Est GFR (MDRD) Af Amer Est GFR (MDRD) Non-Af BUN/Creatinine Ratio Glucose Lactic Acid 1.7 Calcium Total Bilirubin AST ALT Alkaline Phosphatase Troponin I Total Protein Albumin Globulin Albumin/Globulin Ratio Urine Color Urine Clarity Urine pH Ur Specific [place] Urine Protein Urine Glucose (UA) Urine Ketones Urine Occult Blood Urine Nitrite Urine Bilirubin Urine Urobilinogen Ur Leukocyte Esterase Urine RBC Urine WBC Ur Squamous Epith Cells Urine Bacteria Urine Mucus Urine Opiates Screen Urine Methadone Screen Ur Barbiturates Screen Ur Phencyclidine Scrn Ur Amphetamines Screen U Methamphetamin-MDMA U Benzodiazepines Scrn Urine Cocaine Screen U Cannabinoids Screen Ur Drug Screen Comment Ethyl Alcohol < 3.0 05/01/20 05:20 WBC RBC Hgb Hct MCV MCH MCHC RDW Std Deviation RDW Coeff of [place] Plt Count MPV Immature Gran % (Auto) Neut % (Auto) Lymph % (Auto) [place] % (Auto) Eos % (Auto) Baso % (Auto) Absolute Neuts (auto) Absolute Lymphs (auto) Nucleated RBC % Differential Comment PT INR APTT Sodium 136 Potassium 3.9 Chloride 105 Carbon Dioxide 26.0 Anion Gap 5 BUN 12 Creatinine 0.82 Estim Creat Clear Calc 139.32 Est GFR (MDRD) Af Amer 137 Est GFR (MDRD) Non-Af 114 BUN/Creatinine Ratio 14.6 Glucose 92 Lactic Acid Calcium 7.5 L Total Bilirubin AST ALT Alkaline Phosphatase Troponin I Total Protein Albumin Globulin Albumin/Globulin Ratio Urine Color Urine Clarity Urine pH Ur Specific [place] Urine Protein Urine Glucose (UA) Urine Ketones Urine Occult Blood Urine Nitrite Urine Bilirubin Urine Urobilinogen Ur Leukocyte Esterase Urine RBC Urine WBC Ur Squamous Epith Cells Urine Bacteria Urine Mucus Urine Opiates Screen Urine Methadone Screen Ur Barbiturates Screen Ur Phencyclidine Scrn Ur Amphetamines Screen U Methamphetamin-MDMA U Benzodiazepines Scrn Urine Cocaine Screen U Cannabinoids Screen Ur Drug Screen Comment Ethyl Alcohol - Other Studies Radiology: [] reviewed Other Studies: [] Route of nutrition/ use of supplements: [] Nutritional Intake: [] IV Site: [] Feilz Catheter: [] - Physical Exam General: Alert, Oriented x3, Cooperative, - - ill appearing HEENT: Atraumatic, PERRLA, EOMI Neck: Supple, No Nodes Lungs: Clear to auscultation, Normal air movement Cardiovascular: Regular rate, Regular Rhythm, Murmur Abdomen: Soft, Non Tender, Non-Distended Extremities: No edema Skin: No rashes, - - multiple splinter hemorrhages on R 5th finger IV Site: Peripheral, without redness Musculoskeletal: - - moderate mid spine tenderness Neurological: Cranial nerves II-XII grossly intact, Motor Exam 5/5 strength throughout - Assessment/Plan Antibiotics: [] Assessment/Plan: [] Active and Suspected Problems Sepsis (Acute) Bacteremia (Acute) Cystitis (Acute) MRSA bacteremia with high suspicion for endocarditis and 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 Repeat bcx today. MRI pending. Will order HENRI. Check hiv, hep C pcr, hep B studies. Cont vanc. Will follow, thank you
--- NOTE | 2020-05-01 20:28 | CASEMGMT ---
Insurance review for hospitals In-network with [employer] if transfer is recommended is as follows: [facility], [facility], [facility], [facility], [facility], [facility], [facility] ([facility]), and . Ryan ABURTON RN CM
[2020-05-01] MEDS: traZODone 100 MG Tablet PO (22:06)
[2020-05-02] VITALS (10 sets, daily range): BP systolic 108–126; BP diastolic 69–86; PULSE 63–73; RESP 16–18; TEMP 36.5–37.1; O2SAT 95–98
[2020-05-02] MEDS: Potassium Chloride 40 MEQ in 0.9% Normal Saline 1,000 ML 100 MEQ IV ×3 (00:08→22:08)
[2020-05-02] MEDS: Buprenorphine HCl 2 MG TAB.SUBL SL ×3 (01:55→17:39)
[2020-05-02] MEDS: Dicyclomine 10 MG Capsule 20 MG PO ×3 (05:06→21:54)
[2020-05-02] MEDS: Ondansetron 4 MG/2 ML Vial IV (05:06)
[2020-05-02] MEDS: 0.9% Saline Lock 10 ML Syringe IV (05:06)
[2020-05-02] MEDS: Loperamide 2 MG Capsule PO (05:06)
[2020-05-02] MEDS: hydrOXYzine PAM 25 MG Capsule 50 MG PO ×2 (06:53→15:33)
[2020-05-02] MEDS: Methocarbamol 750 MG Tablet 1500 MG PO (06:53)
[2020-05-02 08:05] LABS: Anion Gap 6 (5-15); BUN 9 mg/dL (7-18); BUN/Creat Ratio 11.3 RATIO (10-20); Calcium,Total 7.7 mg/dL (8.5-10.1); Chloride 107 mmol/L (98-107); EST Glomerular Filtration Rate 118 mL/min (>60); Est Glom Filt Rate - Afr Amer 143 mL/min (>60); Estimated Creatinine Clearance 142.81 ml/min; Glucose 116 mg/dL (74-106); Potassium 3.9 mmol/L (3.5-5.1); Sodium Level 139 mmol/L (136-145)
[2020-05-02 08:06] LABS: Vancomycin, Trough Level 6.1 ug/mL (5.0-15.0)
[2020-05-02 10:11] LABS: HIV - WCH Non-Reactive (Nonreactive); Hepatitis B Surface Antigen Non-Reactive (Nonreactive)
--- NOTE | 2020-05-02 10:14 | CASEMGMT ---
BLAISE CM NOTE: Dr Stoll recommends pt be transferred to for endocarditis. Dr Piper made aware. Ryan GE RN CM
[2020-05-02] MEDS: APIXABAN 5 MG TABLET PO ×2 (10:17→21:28)
[2020-05-02] MEDS: Gabapentin 300 MG Capsule PO ×2 (10:18→21:28)
[2020-05-02] MEDS: cloNIDine HCl 0.1 MG Tablet PO ×2 (10:18→21:28)
--- NOTE | 2020-05-02 12:07 | PCM.RX.CS ---
Consult Pharmacy has been consulted to manage selected antiobiotic: Vancomycin Type of Consult: Follow-up Labs: Sodium 139 mmol/L (136-145) 05/02/20 07:30 Potassium 3.9 mmol/L (3.5-5.1) 05/02/20 07:30 Chloride 107 mmol/L (98-107) 05/02/20 07:30 Carbon Dioxide 26.0 mmol/L (21.0-32.0) 05/02/20 07:30 Anion Gap 6 (5-15) 05/02/20 07:30 BUN 9 mg/dL (7-18) 05/02/20 07:30 Creatinine 0.80 mg/dL (0.70-1.30) 05/02/20 07:30 Est GFR (MDRD) Af Amer 143 mL/min (>60) 05/02/20 07:30 Est GFR (MDRD) Non-Af 118 mL/min (>60) 05/02/20 07:30 BUN/Creatinine Ratio 11.3 RATIO (-20) 05/02/20 07:30 Glucose 116 mg/dL (74-106) H 05/02/20 07:30 Vancomycin Trough 6.1 ug/mL (5.0-15.0) 05/02/20 07:30 Microbiology: Microbiology 04/30/20 19:05 Blood Culture (Wb) - Other Blood Culture - Final Staphylococcus aureus 04/30/20 19:36 Urine, Clean Catch Urine Culture - Preliminary Culture exhibits no growth. Pharmacy Plan for Drug Dosing: VANCOMYCIN LEVEL RECEIVED Current Vancomycin Dose: 1250mg IV Q12hr Number of Doses Received: 4 (3 prior to trough draw) Vancomycin Level: 6.1 Hours Since Last Dose: 12hr Renal Function: SCr 0.8 / CrCl 142 mL/min Renal Function Trend: Stable Lab/Micro: BCx = staph (no sens yet) Vancomycin Plan/Comments: Pt had trough drawn which resulted in a value of 6.1 (drawn appropriately). The patient's current trough goal is 10-15. Upon review of pt chart, it was noted we are treating bacteremia. Called and discussed case with ID service who is consulted, will increase trough goal to 15-20 given current indication for vancomycin therapy. In lieu of this, will increase frequency of vancomycin, and will start ~6hrs from last administered rather than giving a supplemental dose. Will check a trough prior to 4th dose of new regimen and adjust as needed at that time. NEW DOSE Vancomycin 1g IV Q8hr to start 05/02 @1500 Pending Level: 05/03/20 @1430 (Prior to 4th dose of new regimen) Pharmacy Service will continue to monitor and adjust dosing as required.
--- NOTE | 2020-05-02 14:33 | PN_ITS ---
Patient Problems: Active and Suspected Problems Sepsis (Acute) Bacteremia (Acute) Cystitis (Acute) Reason for Visit: endocarditis Subjective: Tired after HENRI. Vitals/I&O's: Vital Signs Temp Pulse Resp BP Pulse Ox 36.5 C L 73 16 108/69 98 05/02/20 09:20 05/02/20 09:20 05/02/20 09:20 05/02/20 09:20 05/02/20 09:20 Oxygen Delivery Method Room Air Weight: 84.4 kg Body Mass Index (BMI) 25.2 Finger Stick Blood Glucose 108 Intake and Output for Last 24 Hours 04/30/20 05/01/20 05/02/20 23:59 23:59 23:59 Intake Total 2314.25 / 2314.25 4788.34 / 5028.34 1631.67 / 1631.67 Output Total 3000 / 4200 1650 / 1650 Balance 2314.25 / 2314.25 1788.34 / 828.34 -18.33 / -18.33 General: Alert, No apparent distress HEENT: Atraumatic, Normocephalic Oral: Moist Mucosa, No Gingival or Mucosal Lesions/ Ulcerations Neck: No Nodes, Thyroid Normal Size and Texture Lungs: Clear to auscultation, Normal air movement, No rhonchi, No wheeze, No rales, Diminished Cardiovascular: Regular rate, Regular Rhythm, Normal S1, Normal S2, No murmurs Abdomen: Bowel Sounds Present, Soft, Non Tender, Non-Distended, No Hepato- splenomegaly Extremities: No edema, No Calf Tenderness Psych/Mental Status: Appropriate, Flat Affect Microbiology Past 72 Hours 04/30/20 19:05 Blood Culture (Wb) - Other Blood Culture - Final Staphylococcus aureus 04/30/20 19:36 Urine, Clean Catch Urine Culture - Preliminary Culture exhibits no growth. Laboratory Results 05/02/20 07:30: Vancomycin Trough 6.1 05/02/20 07:30: Sodium 139, Potassium 3.9, Chloride 107, Carbon Dioxide 26.0, Anion Gap 6, BUN 9, Creatinine 0.80, Estim Creat Clear Calc 142.81, Est GFR (MDRD) Af Amer 143, Est GFR (MDRD) Non-Af 118, BUN/Creatinine Ratio 11.3, Glucose 116 H, Calcium 7.7 L 05/02/20 07:30: Hep B Core Total Ab Pending, HCV RNA Quant (PCR) Pending 05/02/20 07:30: Hep Bs Antigen Non-Reactive, HIV 1&2 Antibody Non-Reactive Current Medications Acetaminophen (Acetaminophen 325 Mg Tablet) 650 mg PO Q6H PRN PRN PRN Reason: Pain Score 1-10/Temp > 100.7 F Last Admin: 05/01/20 06:16 Dose: 650 mg Documented by: Apixaban (Apixaban 5 Mg Tablet) 5 mg PO BID ZAHRAA Last Admin: 05/02/20 10:17 Dose: 5 mg Documented by: Buprenorphine HCl (Buprenorphine Hcl 2 Mg Tab.Subl) 2 mg SL Q8H ZAHRAA; Taper Stop: 05/04/20 09:59 Last Admin: 05/02/20 10:17 Dose: 2 mg Documented by: Clonidine (Clonidine Hcl 0.1 Mg Tablet) 0.1 mg PO Q8H PRN PRN PRN Reason: RESTLESSNESS Last Admin: 05/02/20 10:18 Dose: 0.1 mg Documented by: Dicyclomine HCl (Dicyclomine 10 Mg Capsule) 20 mg PO Q6H PRN PRN PRN Reason: Abdominal Discomfort Last Admin: 05/02/20 05:06 Dose: 20 mg Documented by: Gabapentin (Gabapentin 300 Mg Capsule) 300 mg PO Q8H PRN PRN PRN Reason: moderate to severe anxiety Last Admin: 05/02/20 10:18 Dose: 300 mg Documented by: Hydroxyzine Pamoate (Hydroxyzine Joana 25 Mg Capsule) 50 mg PO Q6H PRN PRN PRN Reason: mild anxiety Last Admin: 05/02/20 06:53 Dose: 50 mg Documented by: Potassium Chloride 40 meq/ (Sodium Chloride) 1,020 mls @ 100 mls/hr IV .[id number] Last Admin: 05/02/20 10:18 Dose: 100 mls/hr Documented by: Sodium Chloride () 250 mls @ 15 mls/hr IV .[id number] PRN PRN Reason: Saline Flush Sodium Chloride () 250 mls @ 15 mls/hr IV .[id number] PRN PRN Reason: Additional IVPB Infusion Vancomycin IV Pharmacy to Dose (1 ea/ Sodium Chloride) 500 mls @ 250 mls/hr IV PRN PRN; Protocol PRN Reason: Rx to Dose Vancomycin HCl (Vancomycin) 1,000 mg in 200 mls @ 200 mls/hr IV Q8H ZAHRAA Loperamide HCl (Loperamide 2 Mg Capsule) 2 mg PO Q4H PRN PRN PRN Reason: LOOSE STOOLS Last Admin: 05/02/20 05:06 Dose: 2 mg Documented by: Methocarbamol (Methocarbamol 750 Mg Tablet) 1,500 mg PO Q6H PRN PRN PRN Reason: MUSCLE SPASM Last Admin: 05/02/20 06:53 Dose: 1,500 mg Documented by: Nicotine (Nicotine 21 Mg Patch) 21 mg TRANSDERM. DAILY ZAHRAA Last Admin: 05/02/20 10:17 Dose: 21 mg Documented by: Ondansetron HCl (Ondansetron 4 Mg/2 Ml Vial) 4 mg IV Q8H PRN PRN PRN Reason: NAUSEA/VOMITING Last Admin: 05/02/20 05:06 Dose: 4 mg Documented by: Ondansetron HCl (Ondansetron 8 Mg Tablet) 8 mg PO Q8H PRN PRN PRN Reason: NAUSEA Last Admin: 05/01/20 15:04 Dose: 8 mg Documented by: Sodium Chloride (0.9% Saline Lock 10 Ml Syringe) 10 - 40 ml IV UD PRN PRN Reason: SALINE FLUSH Last Admin: 05/02/20 05:06 Dose: 10 ml Documented by: Trazodone HCl (Trazodone 100 Mg Tablet) 100 mg PO QHS PRN PRN PRN Reason: INSOMNIA Last Admin: 05/01/20 22:06 Dose: 100 mg Documented by: Medical Necessity - Tobacco Use Smoking Status: Current every day smoker Tobacco Use: Cigarettes Assessment/Plan All Active Problems Sepsis (Acute) Bacteremia (Acute) Cystitis (Acute) 1. sepsis: ruled out. did not meed 2/4 SIRS criteria. 2. Endocarditis: * noted 1.4 x 1.6 cm echodensity on TV * continue IV abx * transfer to tertiary facility for definitive mgmt 3. Bacteremia: * from the . S. aureus. Await final culture results. Continue with vancomycin. follow up repeat BCx. * MRI of T and L spines negative. * 2/2 endocarditis +/- infected SVT 3. LLE SVT, complicated: * DVT ruled out. on apixaban. Likely 2/2 to injection drug use as patient states he has injected in that area. May be another source of bacteremia. * Noted to be within 0.59 cm of left sapheno-femoral junction. Given close proximity to deep system, relatively large size apixaban for 3 months. 4. opiate abuse, chronic: on buprenorphine taper through the . [employer] to see. 5. Asymptomatic bacteruria: 2/2 bacteremia. UTI ruled out. DC ctx. 6. VTE prophylaxis: anticoagulated. Called for potential transfer. Awaiting to hear back if accepted. Inpatient E&M: 93427 Subs Hosp L2
--- NOTE | 2020-05-02 14:38 | DS.PCM_ITS ---
Discharge Date and Diagnosis - Problem List Patient Problems: Active and Suspected Problems Sepsis (Acute) Bacteremia (Acute) Date of Admission: 04/30/20 Date of Discharge: 05/02/20 - Primary Discharge Diagnosis Acute Problems: Active Problems Sepsis (Acute) Bacteremia (Acute) Cystitis (Acute) Endocarditis - Secondary Discharge Diagnosis Chronic Problems: Chronic Problems History of infective endocarditis (Chronic) Hypertension (Chronic) Heroin abuse (Chronic) Hospital Course and Treatment Imaging Results: Clinical Impression(s) from Imaging Studies Lumbar Spine MRI 05/01/20 09:00 IMPRESSION: No evidence of discitis, osteomyelitis, or epidural abscess. No evidence of significant disc disease or nerve root impingement. Electronically Signed: Matthew Schaeffer MD at 17:49 EDT Tel , Service support , Thoracic Spine MRI 05/01/20 09:00 IMPRESSION: No evidence of discitis or osteomyelitis. No evidence of cord pathology or epidural abscess. Electronically Signed: Matthew Schaeffer MD at 18:08 EDT Tel , Service support , HENRI: Left ventricular systolic function is normal. The estimated ejection fraction is 55 %. There is no sponatenous contrast in the left atrium. No thrombus is detected in the left atrial appendage. The right atrium is severely enlarged. There is no sponatenous contrast in the right atrium. No obvious RA/appendage thrombus identified. Mild (1+) mitral valve insufficiency. An annuloplasty ring is noted in the tricuspid position. Myxomatous appearing tricuspid valve. Moderate (2+) eccentric tricuspid valve insufficiency. Trivial pulmonic valve insufficiency. Bubble contrast study negative for right to left interatrial shunt. Comment: 2D echocardiographic images demonstrate a large (approximately 1.4 cm x 1.6 cm) mobile echodensity on the atrial side of the tricuspid valve apparatus with a differential diagnosis including vegetation. ROBERT Stoll Operations: None Procedures: 2-D Echocardiogram, Transesophageal Echo Summary of Care Provided: The patient is a 34 year old M [] Presents with fever. Patient was seen on and diagnosed with a UTI and lower extremity cellulitis. Patient was discharged with Keflex. Patient started having left leg pain on the and came back and was found to have a superficial venous thrombus phlebitis. Patient was started on apixaban at that time. Patient came back the same day as patient had positive blood culture stopped aureus. Patient has had a history of endocarditis and patient underwent a work-up with TTE which was unremarkable but the HENRI showed 1.4 x 1.6 cm tricuspid valve vegetation. Infectious disease recommended transfer back to [facility] where he has had previous tricuspid valve surgery. Patient is an active IV drug user and this vegetation and bacteremia is likely attributable to that. Patient also does have an SVT in his left groin and that is felt to be related with his IV drug use as well. Unclear if that is infected or not. Patient did have some pain on the dorsum of his right foot but the exam is pretty unremarkable for that. Some clear patient does have septic arthritis but it is not really swollen or boggy to suggest that at this time. Currently waiting on acceptance for transfer. Patient Problems: Active and Suspected Problems Sepsis (Acute) Bacteremia (Acute) - Physical Exam Vitals/I&O's: Vital Signs Temp Pulse Resp BP Pulse Ox 36.5 C L 73 16 108/69 98 05/02/20 09:20 05/02/20 09:20 05/02/20 09:20 05/02/20 09:20 05/02/20 09:20 Oxygen Delivery Method Room Air Weight: 84.4 kg Body Mass Index (BMI) 25.2 Finger Stick Blood Glucose 108 Intake and Output for Last 24 Hours 04/30/20 05/01/20 05/02/20 23:59 23:59 23:59 Intake Total 2314.25 / 2314.25 4788.34 / 5028.34 1631.67 / 1631.67 Output Total 3000 / 4200 1650 / 1650 Balance 2314.25 / 2314.25 1788.34 / 828.34 -18.33 / -18.33 General: Alert, No apparent distress HEENT: Atraumatic, Normocephalic Oral: Moist Mucosa, No Gingival or Mucosal Lesions/ Ulcerations Neck: No Nodes, Thyroid Normal Size and Texture Lungs: Clear to auscultation, Normal air movement, No rhonchi, No wheeze Cardiovascular: Regular rate, Regular Rhythm, Normal S1, Normal S2 Microbiology Past 72 Hours 04/30/20 19:05 Blood Culture (Wb) - Other Blood Culture - Final Staphylococcus aureus 04/30/20 19:36 Urine, Clean Catch Urine Culture - Preliminary Culture exhibits no growth. Laboratory Results 05/02/20 07:30: Vancomycin Trough 6.1 05/02/20 07:30: Sodium 139, Potassium 3.9, Chloride 107, Carbon Dioxide 26.0, Anion Gap 6, BUN 9, Creatinine 0.80, Estim Creat Clear Calc 142.81, Est GFR (MDRD) Af Amer 143, Est GFR (MDRD) Non-Af 118, BUN/Creatinine Ratio 11.3, Glucose 116 H, Calcium 7.7 L 05/02/20 07:30: Hep B Core Total Ab Pending, HCV RNA Quant (PCR) Pending 05/02/20 07:30: Hep Bs Antigen Non-Reactive, HIV 1&2 Antibody Non-Reactive Current Medications Acetaminophen (Acetaminophen 325 Mg Tablet) 650 mg PO Q6H PRN PRN PRN Reason: Pain Score 1-10/Temp > 100.7 F Last Admin: 05/01/20 06:16 Dose: 650 mg Documented by: Apixaban (Apixaban 5 Mg Tablet) 5 mg PO BID ZAHRAA Last Admin: 05/02/20 10:17 Dose: 5 mg Documented by: Buprenorphine HCl (Buprenorphine Hcl 2 Mg Tab.Subl) 2 mg SL Q8H ZAHRAA; Taper Stop: 05/04/20 09:59 Last Admin: 05/02/20 10:17 Dose: 2 mg Documented by: Clonidine (Clonidine Hcl 0.1 Mg Tablet) 0.1 mg PO Q8H PRN PRN PRN Reason: RESTLESSNESS Last Admin: 05/02/20 10:18 Dose: 0.1 mg Documented by: Dicyclomine HCl (Dicyclomine 10 Mg Capsule) 20 mg PO Q6H PRN PRN PRN Reason: Abdominal Discomfort Last Admin: 05/02/20 05:06 Dose: 20 mg Documented by: Gabapentin (Gabapentin 300 Mg Capsule) 300 mg PO Q8H PRN PRN PRN Reason: moderate to severe anxiety Last Admin: 05/02/20 10:18 Dose: 300 mg Documented by: Hydroxyzine Pamoate (Hydroxyzine Joana 25 Mg Capsule) 50 mg PO Q6H PRN PRN PRN Reason: mild anxiety Last Admin: 05/02/20 06:53 Dose: 50 mg Documented by: Potassium Chloride 40 meq/ (Sodium Chloride) 1,020 mls @ 100 mls/hr IV .[id number] Last Admin: 05/02/20 10:18 Dose: 100 mls/hr Documented by: Sodium Chloride () 250 mls @ 15 mls/hr IV .[id number] PRN PRN Reason: Saline Flush Sodium Chloride () 250 mls @ 15 mls/hr IV .[id number] PRN PRN Reason: Additional IVPB Infusion Vancomycin IV Pharmacy to Dose (1 ea/ Sodium Chloride) 500 mls @ 250 mls/hr IV PRN PRN; Protocol PRN Reason: Rx to Dose Vancomycin HCl (Vancomycin) 1,000 mg in 200 mls @ 200 mls/hr IV Q8H ZAHRAA Loperamide HCl (Loperamide 2 Mg Capsule) 2 mg PO Q4H PRN PRN PRN Reason: LOOSE STOOLS Last Admin: 05/02/20 05:06 Dose: 2 mg Documented by: Methocarbamol (Methocarbamol 750 Mg Tablet) 1,500 mg PO Q6H PRN PRN PRN Reason: MUSCLE SPASM Last Admin: 05/02/20 06:53 Dose: 1,500 mg Documented by: Nicotine (Nicotine 21 Mg Patch) 21 mg TRANSDERM. DAILY [facility] Last Admin: 05/02/20 10:17 Dose: 21 mg Documented by: Ondansetron HCl (Ondansetron 4 Mg/2 Ml Vial) 4 mg IV Q8H PRN PRN PRN Reason: NAUSEA/VOMITING Last Admin: 05/02/20 05:06 Dose: 4 mg Documented by: Ondansetron HCl (Ondansetron 8 Mg Tablet) 8 mg PO Q8H PRN PRN PRN Reason: NAUSEA Last Admin: 05/01/20 15:04 Dose: 8 mg Documented by: Sodium Chloride (0.9% Saline Lock 10 Ml Syringe) 10 - 40 ml IV UD PRN PRN Reason: SALINE FLUSH Last Admin: 05/02/20 05:06 Dose: 10 ml Documented by: Trazodone HCl (Trazodone 100 Mg Tablet) 100 mg PO QHS PRN PRN PRN Reason: INSOMNIA Last Admin: 05/01/20 22:06 Dose: 100 mg Documented by: Discharge Diet: No Restrictions Home Medications: Medications to take at Discharge Apixaban [Eliquis] 5 mg PO BID #72 tab 04/30/20 Cephalexin [Keflex] 500 mg PO [id number] 04/30/20 Zofran Odt 4 mg SL PRN PRN 04/30/20 Primary Care Physician: Care Physician,No Primary [Primary Care Provider] - Disposition: Acute care Hospital Minutes spent on discharge:: 32 Patient Condition:: Stable Medical Necessity - Tobacco Use Smoking Status: Current every day smoker Tobacco Use: Cigarettes Meaningful Use Info Meaningful Use Diagnoses (Choose all that apply): None applicable Inpatient E&M: 93126 Disch Hosp
[2020-05-02] MEDS: Vancomycin IV 1,000 MG/200 ML BAG 200 MG IV ×2 (15:18→23:03)
[2020-05-02] MEDS: Ondansetron 8 MG Tablet PO (15:33)
--- NOTE | 2020-05-02 16:12 | PCM.PN.ID ---
Patient Problems: Active and Suspected Problems Sepsis (Acute) Bacteremia (Acute) Subjective: Still with back pain, HENRI this AM, no fever, no n/v/d. - Physical Exam Vitals/I&O's: Vital Signs Temp Pulse Resp BP Pulse Ox 98.1 F 66 18 112/77 98 05/02/20 15:30 05/02/20 15:30 05/02/20 15:30 05/02/20 15:30 05/02/20 15:30 Oxygen Delivery Method Room Air Weight: 84.4 kg Body Mass Index (BMI) 25.2 Finger Stick Blood Glucose 108 Intake and Output for Last 24 Hours 04/30/20 05/01/20 05/02/20 23:59 23:59 23:59 Intake Total 2314.25 / 2314.25 4788.34 / 5028.34 2531.67 / 2531.67 Output Total 3000 / 4200 1650 / 1650 Balance 2314.25 / 2314.25 1788.34 / 828.34 881.67 / 881.67 General: Alert, Cooperative, No apparent distress Lungs: Clear to auscultation, Normal air movement Cardiovascular: Regular rate, Regular Rhythm, Murmur Abdomen: Soft, Non Tender, Non-Distended Skin: No rashes Microbiology Past 72 Hours 04/30/20 19:05 Blood Culture (Wb) - Other Blood Culture - Final Staphylococcus aureus 04/30/20 19:36 Urine, Clean Catch Urine Culture - Preliminary Culture exhibits no growth. Laboratory Results 05/02/20 07:30: Vancomycin Trough 6.1 05/02/20 07:30: Sodium 139, Potassium 3.9, Chloride 107, Carbon Dioxide 26.0, Anion Gap 6, BUN 9, Creatinine 0.80, Estim Creat Clear Calc 142.81, Est GFR (MDRD) Af Amer 143, Est GFR (MDRD) Non-Af 118, BUN/Creatinine Ratio 11.3, Glucose 116 H, Calcium 7.7 L 05/02/20 07:30: Hep B Core Total Ab Pending, HCV RNA Quant (PCR) Pending 05/02/20 07:30: Hep Bs Antigen Non-Reactive, HIV 1&2 Antibody Non-Reactive Current Medications Acetaminophen (Acetaminophen 325 Mg Tablet) 650 mg PO Q6H PRN PRN PRN Reason: Pain Score 1-10/Temp > 100.7 F Last Admin: 05/01/20 06:16 Dose: 650 mg Documented by: Apixaban (Apixaban 5 Mg Tablet) 5 mg PO BID [facility] Last Admin: 05/02/20 10:17 Dose: 5 mg Documented by: Buprenorphine HCl (Buprenorphine Hcl 2 Mg Tab.Subl) 2 mg SL Q8H ZAHRAA; Taper Stop: 05/04/20 09:59 Last Admin: 05/02/20 10:17 Dose: 2 mg Documented by: Clonidine (Clonidine Hcl 0.1 Mg Tablet) 0.1 mg PO Q8H PRN PRN PRN Reason: RESTLESSNESS Last Admin: 05/02/20 10:18 Dose: 0.1 mg Documented by: Dicyclomine HCl (Dicyclomine 10 Mg Capsule) 20 mg PO Q6H PRN PRN PRN Reason: Abdominal Discomfort Last Admin: 05/02/20 15:33 Dose: 20 mg Documented by: Gabapentin (Gabapentin 300 Mg Capsule) 300 mg PO Q8H PRN PRN PRN Reason: moderate to severe anxiety Last Admin: 05/02/20 10:18 Dose: 300 mg Documented by: Hydroxyzine Pamoate (Hydroxyzine Joana 25 Mg Capsule) 50 mg PO Q6H PRN PRN PRN Reason: mild anxiety Last Admin: 05/02/20 15:33 Dose: 50 mg Documented by: Potassium Chloride 40 meq/ (Sodium Chloride) 1,020 mls @ 100 mls/hr IV .[id number] [facility] Last Infusion: 05/02/20 15:18 Dose: 0 mls/hr Documented by: Sodium Chloride () 250 mls @ 15 mls/hr IV .[id number] PRN PRN Reason: Saline Flush Sodium Chloride () 250 mls @ 15 mls/hr IV .[id number] PRN PRN Reason: Additional IVPB Infusion Vancomycin IV Pharmacy to Dose (1 ea/ Sodium Chloride) 500 mls @ 250 mls/hr IV PRN PRN; Protocol PRN Reason: Rx to Dose Vancomycin HCl (Vancomycin) 1,000 mg in 200 mls @ 200 mls/hr IV Q8H [facility] Last Admin: 05/02/20 15:18 Dose: 200 mls/hr Documented by: Loperamide HCl (Loperamide 2 Mg Capsule) 2 mg PO Q4H PRN PRN PRN Reason: LOOSE STOOLS Last Admin: 05/02/20 05:06 Dose: 2 mg Documented by: Methocarbamol (Methocarbamol 750 Mg Tablet) 1,500 mg PO Q6H PRN PRN PRN Reason: MUSCLE SPASM Last Admin: 05/02/20 06:53 Dose: 1,500 mg Documented by: Nicotine (Nicotine 21 Mg Patch) 21 mg TRANSDERM. DAILY ZAHRAA Last Admin: 05/02/20 10:17 Dose: 21 mg Documented by: Ondansetron HCl (Ondansetron 4 Mg/2 Ml Vial) 4 mg IV Q8H PRN PRN PRN Reason: NAUSEA/VOMITING Last Admin: 05/02/20 05:06 Dose: 4 mg Documented by: Ondansetron HCl (Ondansetron 8 Mg Tablet) 8 mg PO Q8H PRN PRN PRN Reason: NAUSEA Last Admin: 05/02/20 15:33 Dose: 8 mg Documented by: Sodium Chloride (0.9% Saline Lock 10 Ml Syringe) 10 - 40 ml IV UD PRN PRN Reason: SALINE FLUSH Last Admin: 05/02/20 05:06 Dose: 10 ml Documented by: Trazodone HCl (Trazodone 100 Mg Tablet) 100 mg PO QHS PRN PRN PRN Reason: INSOMNIA Last Admin: 05/01/20 22:06 Dose: 100 mg Documented by: Medical Necessity - Tobacco Use Smoking Status: Current every day smoker Tobacco Use: Cigarettes Route of nutrition/ use of supplements: [] Nutritional Intake: [] IV Site: [] Feliz Catheter: [] - Assessment/Plan Antibiotics: [] Assessment/Plan: [] Active and Suspected Problems Sepsis (Acute) Bacteremia (Acute) Cystitis (Acute) 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 Repeat bcx today. MRI did not show any abscess/osteo/discitis, but may need repeat scan if pain continues. Pending hiv, hep C pcr, hep B studies. Cont vanc, dose adjusted due to low trough. HENRI shows 1.6 x 1.4cm triscupid veg, recommend transfer to for cardiac surg eval. Will follow, d/w Dr. Piper
[2020-05-03] VITALS (11 sets, daily range): BP systolic 118–134; BP diastolic 74–89; PULSE 60–81; RESP 18; TEMP 36.7–37.1; O2SAT 94–97
[2020-05-03] MEDS: Buprenorphine HCl 2 MG TAB.SUBL SL ×3 (02:21→22:09)
--- NOTE | 2020-05-03 06:00 | NURSING ---
[facility] called to make sure there were no changes with this pt. They think they might have a bed for him later today.
[2020-05-03] MEDS: Vancomycin IV 1,000 MG/200 ML BAG 200 MG IV ×2 (06:54→15:30)
[2020-05-03] MEDS: Gabapentin 300 MG Capsule PO ×2 (07:00→15:39)
[2020-05-03] MEDS: Dicyclomine 10 MG Capsule 20 MG PO ×3 (07:00→22:09)
[2020-05-03] MEDS: Methocarbamol 750 MG Tablet 1500 MG PO ×2 (08:22→20:45)
[2020-05-03] MEDS: cloNIDine HCl 0.1 MG Tablet PO ×2 (08:22→20:45)
--- NOTE | 2020-05-03 09:12 | NURSING ---
AWARE NO BED AT THIS TIME AT PER TRANSFER CENTER
--- NOTE | 2020-05-03 09:19 | PN_ITS ---
Patient Problems: Active and Suspected Problems Sepsis (Acute) Bacteremia (Acute) Reason for Visit: endocarditis Subjective: Feeling better overall. Denies any new complaints. Vitals/I&O's: Vital Signs Temp Pulse Resp BP Pulse Ox 36.7 C 69 18 119/77 96 05/03/20 08:15 05/03/20 08:15 05/03/20 08:15 05/03/20 08:15 05/03/20 08:15 Oxygen Delivery Method Room Air Weight: 84.4 kg Body Mass Index (BMI) 25.2 Finger Stick Blood Glucose 108 Intake and Output for Last 24 Hours 05/01/20 05/02/20 05/03/20 23:59 23:59 23:59 Intake Total 4788.34 / 5028.34 3348.34 / 3848.34 1683.33 / 1683.33 Output Total 3000 / 4200 1650 / 2750 1750 / 1750 Balance 1788.34 / 828.34 1698.34 / 1098.34 -66.67 / -66.67 General: Alert, No apparent distress HEENT: Atraumatic, Normocephalic Oral: Moist Mucosa, No Gingival or Mucosal Lesions/ Ulcerations Neck: No Nodes, Thyroid Normal Size and Texture Lungs: Clear to auscultation, Normal air movement, No rhonchi, No wheeze Cardiovascular: Regular rate, Regular Rhythm, Normal S1, Normal S2 Abdomen: Bowel Sounds Present, Soft, Non Tender, Non-Distended Extremities: No edema, No Calf Tenderness Microbiology Past 72 Hours 04/30/20 19:36 Urine, Clean Catch Urine Culture - Final Culture exhibits no growth. 04/30/20 19:05 Blood Culture (Wb) - Other Blood Culture - Final Staphylococcus aureus Laboratory Results 05/02/20 07:30: Hep Bs Antigen Non-Reactive, HIV 1&2 Antibody Non-Reactive Current Medications Acetaminophen (Acetaminophen 325 Mg Tablet) 650 mg PO Q6H PRN PRN PRN Reason: Pain Score 1-10/Temp > 100.7 F Last Admin: 05/01/20 06:16 Dose: 650 mg Documented by: Apixaban (Apixaban 5 Mg Tablet) 5 mg PO BID ZAHRAA Last Admin: 05/02/20 21:28 Dose: 5 mg Documented by: Buprenorphine HCl (Buprenorphine Hcl 2 Mg Tab.Subl) 2 mg SL Q8H ZAHRAA; Taper Stop: 05/04/20 09:59 Last Admin: 05/03/20 02:21 Dose: 2 mg Documented by: Clonidine (Clonidine Hcl 0.1 Mg Tablet) 0.1 mg PO Q8H PRN PRN PRN Reason: RESTLESSNESS Last Admin: 05/03/20 08:22 Dose: 0.1 mg Documented by: Dicyclomine HCl (Dicyclomine 10 Mg Capsule) 20 mg PO Q6H PRN PRN PRN Reason: Abdominal Discomfort Last Admin: 05/03/20 07:00 Dose: 20 mg Documented by: Gabapentin (Gabapentin 300 Mg Capsule) 300 mg PO Q8H PRN PRN PRN Reason: moderate to severe anxiety Last Admin: 05/03/20 07:00 Dose: 300 mg Documented by: Hydroxyzine Pamoate (Hydroxyzine Joana 25 Mg Capsule) 50 mg PO Q6H PRN PRN PRN Reason: mild anxiety Last Admin: 05/02/20 15:33 Dose: 50 mg Documented by: Potassium Chloride 40 meq/ (Sodium Chloride) 1,020 mls @ 100 mls/hr IV .[id number] ZAHRAA Last Infusion: 05/03/20 06:55 Dose: 0 mls/hr Documented by: Sodium Chloride () 250 mls @ 15 mls/hr IV .[id number] PRN PRN Reason: Saline Flush Sodium Chloride () 250 mls @ 15 mls/hr IV .[id number] PRN PRN Reason: Additional IVPB Infusion Vancomycin IV Pharmacy to Dose (1 ea/ Sodium Chloride) 500 mls @ 250 mls/hr IV PRN PRN; Protocol PRN Reason: Rx to Dose Vancomycin HCl (Vancomycin) 1,000 mg in 200 mls @ 200 mls/hr IV Q8H [facility] Last Admin: 05/03/20 06:54 Dose: 200 mls/hr Documented by: Loperamide HCl (Loperamide 2 Mg Capsule) 2 mg PO Q4H PRN PRN PRN Reason: LOOSE STOOLS Last Admin: 05/02/20 05:06 Dose: 2 mg Documented by: Methocarbamol (Methocarbamol 750 Mg Tablet) 1,500 mg PO Q6H PRN PRN PRN Reason: MUSCLE SPASM Last Admin: 05/03/20 08:22 Dose: 1,500 mg Documented by: Nicotine (Nicotine 21 Mg Patch) 21 mg TRANSDERM. DAILY ZAHRAA Last Admin: 05/02/20 10:17 Dose: 21 mg Documented by: Ondansetron HCl (Ondansetron 4 Mg/2 Ml Vial) 4 mg IV Q8H PRN PRN PRN Reason: NAUSEA/VOMITING Last Admin: 05/02/20 05:06 Dose: 4 mg Documented by: Ondansetron HCl (Ondansetron 8 Mg Tablet) 8 mg PO Q8H PRN PRN PRN Reason: NAUSEA Last Admin: 05/02/20 15:33 Dose: 8 mg Documented by: Sodium Chloride (0.9% Saline Lock 10 Ml Syringe) 10 - 40 ml IV UD PRN PRN Reason: SALINE FLUSH Last Admin: 05/02/20 05:06 Dose: 10 ml Documented by: Trazodone HCl (Trazodone 100 Mg Tablet) 100 mg PO QHS PRN PRN PRN Reason: INSOMNIA Last Admin: 05/01/20 22:06 Dose: 100 mg Documented by: STROKE Vital Signs/Narrative: Vital Signs Temp Pulse Resp BP Pulse Ox 05/03/20 08:15 36.7 C 69 18 119/77 96 05/03/20 07:20 95 05/03/20 06:59 66 Medical Necessity - Tobacco Use Smoking Status: Current every day smoker Tobacco Use: Cigarettes Assessment/Plan All Active Problems Endocarditis (Acute) Sepsis (Acute) Bacteremia (Acute) Cystitis (Ruled-out) Endocarditis (Acute) 1. sepsis: ruled out. did not meed 2/4 SIRS criteria. 2. Endocarditis: * noted 1.4 x 1.6 cm echodensity on TV * continue IV abx * transfer to [facility] pending open bed 3. Bacteremia: * from the . S. aureus. Await final culture results. Continue with vancomycin. follow up repeat BCx. * MRI of T and L spines negative. * 2/2 endocarditis +/- infected SVT 3. LLE SVT, complicated: * DVT ruled out. on apixaban. Likely 2/2 to injection drug use as patient states he has injected in that area. May be another source of bacteremia. * Noted to be within 0.59 cm of left sapheno-femoral junction. Given close proximity to deep system, relatively large size apixaban for 3 months. 4. opiate abuse, chronic: on buprenorphine taper through the . [employer] to see. 5. Asymptomatic bacteruria: 2/ bacteremia. UTI ruled out. DC ctx. 6. VTE prophylaxis: anticoagulated. Inpatient E&M: [id number] Subs Hosp L2 - [place] [id number].
[2020-05-03] MEDS: APIXABAN 5 MG TABLET PO ×2 (09:56→22:09)
[2020-05-03] MEDS: Potassium Chloride 40 MEQ in 0.9% Normal Saline 1,000 ML 100 MEQ IV ×2 (09:56→20:45)
[2020-05-03 15:17] LABS: Vancomycin, Trough Level 12.6 ug/mL (5.0-15.0)
[2020-05-03] MEDS: hydrOXYzine PAM 25 MG Capsule 50 MG PO (15:39)
--- NOTE | 2020-05-03 16:02 | PCM.RX.CS ---
Consult Type of Consult: Follow-up Prior Doses of Antibiotics Received/Current Regimen: currently on 1000mg IV q8h Labs: Sodium 139 mmol/L (136-145) 05/02/20 07:30 Potassium 3.9 mmol/L (3.5-5.1) 05/02/20 07:30 Chloride 107 mmol/L (98-107) 05/02/20 07:30 Carbon Dioxide 26.0 mmol/L (21.0-32.0) 05/02/20 07:30 Anion Gap 6 (5-15) 05/02/20 07:30 BUN 9 mg/dL (7-18) 05/02/20 07:30 Creatinine 0.80 mg/dL (0.70-1.30) 05/02/20 07:30 Est GFR (MDRD) Af Amer 143 mL/min (>60) 05/02/20 07:30 Est GFR (MDRD) Non-Af 118 mL/min (>60) 05/02/20 07:30 BUN/Creatinine Ratio 11.3 RATIO (-20) 05/02/20 07:30 Glucose 116 mg/dL (74-106) H 05/02/20 07:30 Vancomycin Trough 12.6 ug/mL (5.0-15.0) 05/03/20 14:35 Microbiology: Microbiology 05/01/20 13:54 Blood Culture (Wb) - Left Hand Blood Culture - Preliminary No growth in 48 hours. 04/30/20 19:36 Urine, Clean Catch Urine Culture - Final Culture exhibits no growth. 04/30/20 19:05 Blood Culture (Wb) - Other Blood Culture - Final Staphylococcus aureus Weight used for dosin.4 kg Estimated Creatinine Clearance: >100ml/min Goal Trough: 15-20 mcg/mL Pharmacy Plan for Drug Dosing: Vancomycin trough drawn before this afternoon's dose came back as 12.6. This is below the new goal range of 15-20 but since q8h dosing was just started yesterday, it is anticipated that the trough will keep rising into the goal range. Will keep same dosing for now and will recheck the trough in 2 days to make sure it is still going up. Pharmacy Service will continue to monitor and adjust dosing as required. Follow-Up Labs: Trough Vancomycin Labs to be done on [date and time ordered]: 05/05/20 14:30
--- NOTE | 2020-05-03 16:03 | PCM.PN.ID ---
Patient Problems: Active and Suspected Problems Sepsis (Acute) Bacteremia (Acute) Subjective: Feeling better, back pain improved, no fever, no new cough/SOB - Physical Exam Vitals/I&O's: Vital Signs Temp Pulse Resp BP Pulse Ox 98.0 F 60 18 134/88 H 96 05/03/20 15:44 05/03/20 15:44 05/03/20 15:44 05/03/20 15:44 05/03/20 15:44 Oxygen Delivery Method Room Air Weight: 84.4 kg Body Mass Index (BMI) 25.2 Finger Stick Blood Glucose 108 Intake and Output for Last 24 Hours 05/01/20 05/02/20 05/03/20 23:59 23:59 23:59 Intake Total 4788.34 / 5028.34 3348.34 / 3848.34 2283.33 / 2283.33 Output Total 3000 / 4200 1650 / 2750 1750 / 1750 Balance 1788.34 / 828.34 1698.34 / 1098.34 533.33 / 533.33 General: Alert, Cooperative, No apparent distress Lungs: Clear to auscultation, Normal air movement Cardiovascular: Regular rate, Regular Rhythm, Murmur Abdomen: Soft, Non Tender, Non-Distended Skin: No rashes Microbiology Past 72 Hours 05/01/20 13:54 Blood Culture (Wb) - Left Hand Blood Culture - Preliminary No growth in 48 hours. 04/30/20 19:36 Urine, Clean Catch Urine Culture - Final Culture exhibits no growth. 04/30/20 19:05 Blood Culture (Wb) - Other Blood Culture - Final Staphylococcus aureus Laboratory Results 05/03/20 14:35: Vancomycin Trough 12.6 Current Medications Acetaminophen (Acetaminophen 325 Mg Tablet) 650 mg PO Q6H PRN PRN PRN Reason: Pain Score 1-10/Temp > 100.7 F Last Admin: 05/01/20 06:16 Dose: 650 mg Documented by: Apixaban (Apixaban 5 Mg Tablet) 5 mg PO BID [facility] Last Admin: 05/03/20 09:56 Dose: 5 mg Documented by: Buprenorphine HCl (Buprenorphine Hcl 2 Mg Tab.Subl) 2 mg SL Q12H ZAHRAA; Taper Stop: 05/04/20 09:59 Last Admin: 05/03/20 09:56 Dose: 2 mg Documented by: Clonidine (Clonidine Hcl 0.1 Mg Tablet) 0.1 mg PO Q8H PRN PRN PRN Reason: RESTLESSNESS Last Admin: 05/03/20 08:22 Dose: 0.1 mg Documented by: Dicyclomine HCl (Dicyclomine 10 Mg Capsule) 20 mg PO Q6H PRN PRN PRN Reason: Abdominal Discomfort Last Admin: 05/03/20 15:39 Dose: 20 mg Documented by: Gabapentin (Gabapentin 300 Mg Capsule) 300 mg PO Q8H PRN PRN PRN Reason: moderate to severe anxiety Last Admin: 05/03/20 15:39 Dose: 300 mg Documented by: Hydroxyzine Pamoate (Hydroxyzine Joana 25 Mg Capsule) 50 mg PO Q6H PRN PRN PRN Reason: mild anxiety Last Admin: 05/03/20 15:39 Dose: 50 mg Documented by: Potassium Chloride 40 meq/ (Sodium Chloride) 1,020 mls @ 100 mls/hr IV .[id number] [facility] Last Admin: 05/03/20 09:56 Dose: 100 mls/hr Documented by: Sodium Chloride () 250 mls @ 15 mls/hr IV .[id number] PRN PRN Reason: Saline Flush Sodium Chloride () 250 mls @ 15 mls/hr IV .[id number] PRN PRN Reason: Additional IVPB Infusion Vancomycin IV Pharmacy to Dose (1 ea/ Sodium Chloride) 500 mls @ 250 mls/hr IV PRN PRN; Protocol PRN Reason: Rx to Dose Vancomycin HCl (Vancomycin) 1,000 mg in 200 mls @ 200 mls/hr IV Q8H [facility] Last Infusion: 05/03/20 07:54 Dose: Infused Documented by: Loperamide HCl (Loperamide 2 Mg Capsule) 2 mg PO Q4H PRN PRN PRN Reason: LOOSE STOOLS Last Admin: 05/02/20 05:06 Dose: 2 mg Documented by: Methocarbamol (Methocarbamol 750 Mg Tablet) 1,500 mg PO Q6H PRN PRN PRN Reason: MUSCLE SPASM Last Admin: 05/03/20 08:22 Dose: 1,500 mg Documented by: Nicotine (Nicotine 21 Mg Patch) 21 mg TRANSDERM. DAILY [facility] Last Admin: 05/03/20 09:58 Dose: 21 mg Documented by: Ondansetron HCl (Ondansetron 4 Mg/2 Ml Vial) 4 mg IV Q8H PRN PRN PRN Reason: NAUSEA/VOMITING Last Admin: 05/02/20 05:06 Dose: 4 mg Documented by: Ondansetron HCl (Ondansetron 8 Mg Tablet) 8 mg PO Q8H PRN PRN PRN Reason: NAUSEA Last Admin: 05/02/20 15:33 Dose: 8 mg Documented by: Sodium Chloride (0.9% Saline Lock 10 Ml Syringe) 10 - 40 ml IV UD PRN PRN Reason: SALINE FLUSH Last Admin: 05/02/20 05:06 Dose: 10 ml Documented by: Trazodone HCl (Trazodone 100 Mg Tablet) 100 mg PO QHS PRN PRN PRN Reason: INSOMNIA Last Admin: 05/01/20 22:06 Dose: 100 mg Documented by: Medical Necessity - Tobacco Use Smoking Status: Current every day smoker Tobacco Use: Cigarettes Route of nutrition/ use of supplements: [] Nutritional Intake: [] IV Site: [] Feliz Catheter: [] - Assessment/Plan Antibiotics: [] Assessment/Plan: [] Active and Suspected Problems Sepsis (Acute) Bacteremia (Acute) Cystitis (Acute) 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 Repeat bcx today. MRI did not show any lumbar abscess/osteo/discitis, but may need repeat scan if pain continues. Neg hiv, pending hep C pcr, hep B studies. Cont vanc, dose adjusted due to low trough. HENRI shows 1.6 x 1.4cm triscupid veg, pending transfer to for cardiac surg eval. Will follow
--- NOTE | 2020-05-03 22:10 | NURSING ---
[facility]. They have a bed for this pt. He will be going to [facility], Room 17. Phone number for report is [phone].
[2020-05-04 12:07] LABS: HCV Quant. RNA PCR 276000 IU/mL (.)
[2020-05-04 12:54] LABS: HCV log 10 5.441 (.); Hepatitis B Core Ab Total Negative (Negative)
== END 2020-05-03 23:15 | disposition other institution (70) | DRG 193 ==
LOC: ED 21:14 → MS3 05-01 07:06
PROVIDERS: Internal Medicine Infectious Disease; Admitting Provider Hospitalist; Emergency Provider Student in an Organized Health Care Education/Training Program
DX: I33.0 Acute and subacute infective endocarditis (principal); R78.81 Bacteremia; B95.62 Methicillin resistant Staphylococcus aureus infection as the cause of diseases classified elsewhere; R82.71 Bacteriuria; I80.02 Phlebitis and thrombophlebitis of superficial vessels of left lower extremity; L03.116 Cellulitis of left lower limb; E87.6 Hypokalemia; I10 Essential (primary) hypertension; F11.20 Opioid dependence, uncomplicated; F11.23 Opioid dependence with withdrawal; F17.210 Nicotine dependence, cigarettes, uncomplicated; Z79.899 Other long term (current) drug therapy
CPT/HCPCS: 36415; 71045; 72157; 72158; 80048; 80053; 80202; 80307; 80320; 81001; 83605; 84484; 85025; 85610; 85730; 86703; 86704; 87040; 87077; 87086; 87088; 87149; 87186; 87340; 87491; 87522; 87591; 87635; 93005; 93306; 93312; 93320; 93325; 93971; 96361; 96374; 99281; 99285; 99406; A9575; J7030; J7040; J7050; Q9957; A4216; C8929; G0480; J2405; U0002

== ENCOUNTER 2021-06-14 22:11 | Emergency (ER) | payer MEDICAID, SELFPAY ==
[2021-06-14 22:11] VITALS: BP 174/110; PULSE 91; RESP 18; TEMP 35.3; O2SAT 100; BMI 27.5
--- NOTE | 2021-06-15 01:00 | EX.ED.SAOD ---
HPI History of Present Illness Chief Complaint: Substance Abuse Associated Symptoms Associated Symptoms: Negative for vomiting*, diarrhea*, fever*, palpatations, trauma and suicidal ideation Narrative Narrative: Patient seeking detox from IV fentanyl use. Uses daily for about the past year or so, last use about 4 hours ago, has not been through detox lately. He denies any recent illness. He has a history of endocarditis from IV drug use, denies any recent illness or fevers. He did have surgery for it, he thinks that they cleaned off his valve he did not have a replacement. [facility] Medical History Endocarditis Heroin abuse Hypertension Home Medications Zofran Odt 4 mg SUBLINGUAL PRN PRN 04/30/20 [History Last Taken Unknown] apixaban 5 mg PO BID #72 tab 04/30/20 [Rx Last Taken Unknown] cephalexin 500 mg PO [id number] 04/30/20 [History Last Taken 04/30/20 500 mg] Allergy/AdvReac Type Severity Reaction Status Date / Time No Known Allergies Allergy Verified 06/15/21 01:06 Social History (Updated 06/15/21 @ 01:[address] Leonid Taveras MD) Smoking Status: Current every day smoker tobacco type: cigarettes substance use type: opiates and IV drugs ROS ROS ED Constitutional Constitutional ED: Denies chills or fever(s) Eyes Eyes: Denies change in vision or diplopia ENT ENT ED: Denies rhinorrhea or sore throat Cardiovascular Cardiovascular: Denies chest pain or palpitations Respiratory/Chest Respiratory/Chest: Denies cough or dyspnea Gastrointestinal Gastrointestinal: Denies abdominal pain, diarrhea, nausea or vomiting Genitourinary Genitourinary ED: Denies dysuria or hematuria Musculoskeletal Musculoskeletal: Denies back pain or neck pain Integumentary Denies abscess or rash Neurologic Neurologic: Denies headache(s), paresthesias or weakness Psychiatric Psychiatric: Denies anxiety or suicidal thoughts EXAM Physical Exam Const Vital Signs: 06/14/21 22:11 Temperature 95.6 F L Temperature Source Temporal Pulse Rate 91 Respiratory Rate 18 Blood Pressure 174/110 H Blood Pressure Mean 131 Pulse Ox 100 Oxygen Delivery Method Room Air Positive well nourished and well developed General Appearance ED: well developed and NAD HEENT Reports moist mucous membranes normocephalic and atraumatic Eyes PERRL and EOMs intact bilaterally Neck full ROM and supple Resp normal respiratory effort and clear to auscultation bilaterally Cardio regular rate, regular rhythm and no murmurs GI non-tender and non-distended Auscultation: normoactive bowel sounds Palpation: soft Back/Spine no CVA tenderness General Back: other FROM Extremity normal to inspection General Extremety ED: Negative for edema, pulses abnormal or tenderness General Extremity: Negative for edema or pulses abnormal Neuro oriented x3, CN's II-XII intact bilaterally and no sensory deficits noted Sensorium / Orientation: awake and alert Motor Exam: strength 5/5 throughout Skin no rashes or lesions noted and no wounds MDM MDM MDM Narrative Medical decision making narrative: At this time due to pandemic and lack of capacity to admit many medical patients, we are not admitting detox patients here. Nursing discussed with a navigator with 180, they are trying to get him to a different outpatient facility at this time. He does not have any symptoms to acutely treat at this time since he is not in acute withdrawal. After discussion, apparently the patient has a place to go tomorrow, but came here to try to find something sooner. Discharge Plan Triage Chief Complaint: Substance Abuse ED Provider: Leonid Taveras Dx/Rx/DC Orders Clinical Impression: Opiate dependence Instructions: ED Opiate Abuse Prescriptions: No Action apixaban 5 MG tablet 5 mg PO BID Qty: 72 RF: 0 Zofran Odt 4 mg sublingual PRN PRN (Reason: Nausea) RF: 0 cephalexin 500 MG capsule 500 mg PO [id number] RF: 0 Primary Care Provider: Care Physician,No Primary Referrals: Detox, provider [Other] - As soon as possible Care Physician,No Primary [Primary Care Provider] - Disposition Disposition: Home, Self Care
== END 2021-06-15 01:26 | disposition home or self-care (01) ==
PROVIDERS: Emergency Provider Emergency Medicine
DX: F11.20 Opioid dependence, uncomplicated (principal); I10 Essential (primary) hypertension; F17.210 Nicotine dependence, cigarettes, uncomplicated; Z79.01 Long term (current) use of anticoagulants; Z79.899 Other long term (current) drug therapy
CPT/HCPCS: 99282

== ENCOUNTER 2021-11-15 01:22 | Emergency (ER) | payer MEDICAID, SELFPAY ==
[2021-11-15 01:23] VITALS: BP 148/88; PULSE 89; RESP 16; TEMP 36.6; O2SAT 99; BMI 26.9
--- NOTE | 2021-11-15 01:32 | EX.ED.DYSGE1 ---
HPI History of Present Illness Chief Complaint: Anxiety Informant: patient Onset/Context/Timing Onset: Today Context: Gradual Onset Timing: Continuous Quality: Aching Location: Neck, back, chest, head Worsened by: Nothing Relieved by: Nothing Narrative Narrative: Patient presents with pain in his neck and low back that became worse tonight. Patient also admits to some lower chest and upper abdomen pain that began tonight. Patient states this caused him to become anxious and give him an anxiety attack. Patient describes his pain as aching. Patient states nothing makes it better nothing makes it worse. Patient also admits to mild headache. Patient does admit to using IV heroin and fentanyl. Patient states his last use was earlier today. [facility] Medical History Endocarditis Heroin abuse Hypertension Home Medications NK 11/15/21 [History Last Taken Unknown] Allergy/AdvReac Type Severity Reaction Status Date / Time No Known Allergies Allergy Verified 11/15/21 01:25 Social History Smoking Status: Current every day smoker tobacco type: cigarettes substance use type: opiates and IV drugs ROS ROS ED Constitutional Constitutional ED: Denies chills or fever(s) Eyes Eyes: Denies blurry vision or change in vision ENT ENT ED: Denies rhinorrhea or sore throat Cardiovascular Cardiovascular: Reports chest pain; Denies palpitations Respiratory/Chest Respiratory/Chest: Denies cough or dyspnea Gastrointestinal Gastrointestinal: Denies nausea or vomiting Genitourinary Genitourinary ED: Denies dysuria or hematuria Musculoskeletal Musculoskeletal: Reports back pain and neck pain Integumentary Denies abscess or rash Neurologic Neurologic: Reports headache(s); Denies weakness Allergic/Immunologic Allergic/Immunologic ED: Denies mouth swelling or urticaria EXAM Physical Exam Const Vital Signs: 11/15/21 01:23 11/15/21 01:37 Temperature 97.9 F Temperature Source Temporal Pulse Rate 89 Respiratory Rate 16 Blood Pressure 148/88 H Blood Pressure Mean 108 Pulse Ox 99 99 Oxygen Delivery Method Room Air Room Air Positive well nourished and well developed General Appearance ED: well developed HEENT Reports moist mucous membranes Neck supple and no JVD Resp normal respiratory effort and clear to auscultation bilaterally Cardio regular rate, regular rhythm and no murmurs GI normal to inspection, nondistended, normoactive bowel sounds and non-tender Palpation: soft Extremity normal to inspection General Extremety ED: Negative for edema or tenderness General Extremity: Negative for edema Neuro oriented x3, CN's II-XII intact bilaterally and no sensory deficits noted Sensorium / Orientation: alert Motor Exam: strength 5/5 throughout Psych mental status grossly normal Skin no rashes or lesions noted MDM MDM MDM Narrative Medical decision making narrative: Patient was given a dose of Vistaril. EKG was obtained. On my interpretation, it showed a normal sinus rhythm with a rate of 80. HI interval, QRS interval, and QTc intervals were all normal. [place] was normal. There are no acute ST or T wave changes. Portable 1 view chest x-ray was obtained. On my interpretation, lung licona are clear. There is normal cardiac silhouette. Bony thorax is normal. There is no acute process noted. Radiologist also interpreted the x-ray and agrees. CBC and basic metabolic profile were obtained and were within normal limits. High-sensitivity troponin was less than 3. Patient was feeling better on reevaluation. Patient has a HEART score of 0. Patient was advised that this is low risk for acute cardiac event. Patient was instructed to take Tylenol or ibuprofen as needed for any pain. Patient was instructed to follow-up with his primary care physician in 5 to 7 days for further evaluation. Patient understood and was agreeable with the plan. All questions were answered. Lab Data Attestation: I reviewed the patient's lab results. Labs: Laboratory Results - last 24 hr 11/15/21 11/15/21 01:45 01:45 WBC 6.8 RBC 4.79 Hgb 14.0 Hct 41.3 MCV 86.2 MCH 29.2 MCHC 33.9 RDW Std Deviation 40.1 RDW Coeff of Chase 12.9 Plt Count 204 MPV 11.0 Immature Gran % (Auto) 0.300 Neut % (Auto) 70.1 H Lymph % (Auto) 19.6 [place] % (Auto) 6.8 Eos % (Auto) 2.9 Baso % (Auto) 0.3 Absolute Neuts (auto) 4.8 Absolute Lymphs (auto) 1.33 Nucleated RBC % 0 Sodium 140 Potassium 4.0 Chloride 106 Carbon Dioxide 28.0 Anion Gap 6 BUN 20 H Creatinine 1.03 Estim Creat Clear Calc 108.82 Est GFR (MDRD) Af Amer 105 Est GFR (MDRD) Non-Af 87 BUN/Creatinine Ratio 19.4 Glucose 95 Calcium 8.3 L Troponin I High Sens < 3 L Radiography Chest X-Ray - ED: 1 View, Read by ED Physician, Read by Radiologist, Normal and No Acute Disease Diagnostic Testing: Clinical Impression(s) from Imaging Studies Chest X-Ray 11/15/21 01:34 IMPRESSION: Negative portable chest x-ray. Electronically Signed: Caron Mariscal MD at 2:07 EDT , EKG Initial EKG: Attestation: I personally reviewed and interpreted this EKG as follows: Interpretation: Sinus Rhythm (80) and No Acute Injury Pattern Prior EKG tracings: available for review Prior: Unchanged (04/30/2020) Discharge Plan Triage Chief Complaint: Anxiety ED Provider: Charly Dunham Dx/Rx/DC Orders Clinical Impression: Chest pain, Anxiety, Substance abuse Instructions: ED Chest Pain, Uncertain Cause, ED Drug Abuse Prescriptions: No Action NK RF: 0 Primary Care Provider: Care Physician,No Primary Referrals: Cecilio Nagy MD [STAFF PHYSICIAN] - 3-5 Days Care Physician,No Primary [Primary Care Provider] - [facility] [STAFF PHYSICIAN] - 3-5 Days Disposition Disposition: Home, Self Care
--- NOTE | 2021-11-15 01:34 | RAD_ITS ---
STUDY: X-RAY CHEST REASON FOR EXAM: Male, 36 years old. chest pain TECHNIQUE: AP portable. 1:49 AM. COMPARISON: 04/29/2020. FINDINGS: LUNGS: No consolidation. No pneumothorax. MEDIASTINUM: Unremarkable. CARDIAC SILHOUETTE: Not enlarged. Sternal wires. BONES AND SOFT TISSUES: No acute abnormalities. RAD/Chest 1 View (Portable) IMPRESSION: Negative portable chest x-ray. Electronically Signed: Caron Mariscal MD at 2:07 EDT ,
--- NOTE | 2021-11-15 01:34 | EKG12_ITS ---
Test Reason : DYSRHYTHMIA Blood Pressure : / mmHG Vent. Rate : 080 BPM Atrial Rate : 080 BPM P-R Int : 168 ms QRS Dur : 096 ms QT Int : 382 ms P-R-T Axes : 063 072 055 degrees QTc Int : 440 ms Normal sinus rhythm Incomplete right bundle branch block Confirmed by SERGE LONG, OLIVIA ([id number]), photograph editor JULIAN MARTIN ([id number]) on 11/19/2021 1:19:44 PM Referred By: YOANNA Confirmed By:OLIVIA VALENTINE MD
[2021-11-15 01:37] VITALS: O2SAT 99
[2021-11-15] MEDS: hydrOXYzine PAM 25 MG Capsule PO (01:40)
[2021-11-15] MEDS: Aspirin 81 MG TAB.CHEW 324 MG PO (01:40)
[2021-11-15 01:51] LABS: Absolute Lymphocyte Count 1.33 X10^3/uL (0.83-4.51); Absolute Neutrophil Count 4.8 X10^3/uL (2.0-7.7); Basophil# 0.02 X10^3/uL; Basophil% 0.3 % (0-1); Eosinophils% 2.9 % (0-5); Hematocrit 41.3 % (40-54); Lymphocyte # 1.33 X10^3/ul (0.83-4.51); Lymphocyte % 19.6 % (19-41); Mean Corp Hgb Conc 33.9 g/dL (32-36); Mean Corpuscular Hgb 29.2 pg (27.0-32.0); Mean Corpuscular Volume 86.2 fL (80-94); Monocyte# 0.46 X10^3/uL; Monocyte% 6.8 % (0-10); NRBC Flagged by Analyzer 0 % (0-5); Neutrophil # 4.77 X10^3/uL (2.7-7.7); Neutrophil % 70.1 % (47-70); Platelet Count 204 K/mm3 (150-450); RBC Distribution Width CV 12.9 % (11.6-14.6); RBC Distribution Width SD 40.1 fl (35.1-43.9); Red Blood Count 4.79 M/mm3 (4.6-6.2); White Blood Count 6.8 K/mm3 (4.4-11.0)
== END 2021-11-15 02:36 | disposition home or self-care (01) ==
PROVIDERS: Emergency Provider Emergency Medicine; Visit Provider Emergency Medicine
DX: R07.9 Chest pain, unspecified (principal); F19.10 Other psychoactive substance abuse, uncomplicated; F41.9 Anxiety disorder, unspecified; I10 Essential (primary) hypertension; R10.10 Upper abdominal pain, unspecified; M54.2 Cervicalgia; M54.50 Low back pain, unspecified; R51.9 Headache, unspecified; F17.210 Nicotine dependence, cigarettes, uncomplicated
CPT/HCPCS: 71045; 85025; 93005; 99285; A4216

== ENCOUNTER 2021-12-13 14:10 | Observation (INO) | payer MEDICAID, SELFPAY ==
[2021-12-13 14:12] VITALS: BP 127/86; PULSE 83; RESP 14; TEMP 36.6; O2SAT 100; BMI 25.4
--- NOTE | 2021-12-13 14:43 | CM.ED ---
Addendum entered by Елена Benavides 12/13/21 15:25: SW placed a call to Conchita, Addiction Therapist, and updated her on pt's admission. Original Note: Social Work Note Reason for Referral: Pt is at [facility] for Detox. SW met with pt. Pt confirms he is at [facility] for detox. Pt states that he uses Fentanyl and his last use was yesterday. Pt states he has been at [facility] before for detox and aware of the rules. SW also provided pt with PCP list as no PCP is listed for pt. Елена Benavides [employer] MOTOR SPECIALIST, [employer]PRESENTATIVE
--- NOTE | 2021-12-13 15:12 | PCM.HP.STD ---
HPI - General General Date of Admission: 12/13/21 Date of Service: 12/13/21 Chief Complaint: Requesting detox services for opiate addiction HPI Narrative ALISON SIMENTAL, is a 36 M who presents to the urgency room at [facility] requesting services for detox from IV fentanyl. Patient has been using IV fentanyl for many years, he states he has been through detox before but he does not remember exactly when-the last time the patient was hospitalized here was 2019, at that time he had an endocarditis and he was also treated for opiate withdrawal. Patient injects fentanyl, he states he occasionally smokes methamphetamines, he denies any other illicit drug usage and he denies any alcohol usage. Patient is having some stomach cramps and chills at this time and is feeling nervous, he is also having some muscle cramping and nausea. Labs at the time of my dictation are pending on this patient. Patient will be admitted to [place] [address] for acute opioid withdrawal, orders were entered using the opiate detox order set. Patient understands he will be talking with addiction manager social tomorrow about follow-up plans. [facility] Medical History Endocarditis Heroin abuse Hypertension Home Medications NK 11/15/21 [History Last Taken Unknown] Allergy/AdvReac Type Severity Reaction Status Date / Time No Known Allergies Allergy Verified 12/13/21 14:12 Social History Smoking Status: Current every day smoker tobacco type: cigarettes substance use type: opiates and IV drugs ROS ROS Narrative Patient complains of generalized body aches, nausea, chills, and nervousness Constitutional Constitutional: Reports chills and malaise; Denies anorexia, change in weight, fever(s), night sweats or weakness Eyes Eyes: Denies blurry vision, change in vision, discharge from eye(s) or eye pain Cardiovascular Cardiovascular: Denies chest pain, claudication, edema or palpitations Respiratory/Chest Respiratory/Chest: Denies cough, hemoptysis, shortness of breath at rest or shortness of breath with exertion Gastrointestinal Gastrointestinal: Denies abdominal pain, constipation, diarrhea, hematemesis, hematochezia, melena, nausea or vomiting Genitourinary Genitourinary: Denies dysuria, hematuria, urinary frequency, urinary hesitancy, urinary incontinence or urinary urgency Musculoskeletal Musculoskeletal: Denies back pain, joint pain, joint stiffness, joint swelling, myalgias or neck pain Neurologic Neurologic: Denies abnormal gait, abnormal speech, confusion, dizziness, focal weakness, headache(s), loss of vision, numbness, other visual disturbances, paresthesias, syncope or tingling Psychiatric Psychiatric: Denies anxiety, cognitive impairment, depression, irritability, mood swings or suicidal ideation Endocrine Endocrinology: Denies change in body appearance, cold intolerance, excessive sweating, heat intolerance, polydipsia or polyuria Hematologic/Lymphatic Hematologic/Lymphatic: Denies none, anemia, easy bleeding, easy bruising or lymphadenopathy Allergic/Immunologic Allergic/Immunologic: Denies rhinitis, urticaria, eczemia or asthma Vital Signs Vital Signs Vital Signs: 12/13/21 14:12 Temperature 98 F Temperature Source Temporal Pulse Rate 83 Respiratory Rate 14 Blood Pressure 127/86 H Blood Pressure Mean 99 Pulse Ox 100 Oxygen Delivery Method Room Air Weight Weight: 85.1 kg Body Mass Index (BMI) 25.4 Physical Exam Const alert, oriented x3, no apparent distress, average body habitus and healthy appearing General Appearance: cooperative, well kempt and well developed Orientation / Consciousness: awake, oriented to person, oriented to place and oriented to time HEENT normocephalic, head/scalp atraumatic, hearing grossly normal bilaterally and moist oral mucous membranes Eyes PERRL, EOMs intact bilaterally and conjunctivae normal Neck nuchal rigidity, supple, no JVD, thyroid normal and no carotid bruits General: trachea midline Resp normal respiratory effort, no retractions, no use of accessory muscles and clear to auscultation bilaterally Auscultation: Negative for rales, rhonchi or wheezes Cardio regular rate, regular rhythm, S1 normal heart sound, S2 normal heart sound, no murmurs, no rub and no gallops GI normal to inspection, nondistended, normoactive bowel sounds, soft to palpation, non-tender and non-distended Extremity no clubbing, cyanosis or edema Extremity Narrative: Patient has evidence of track hernandez on his lower legs Skin no rashes or lesions noted General Skin Exam: no breakdown Neuro oriented x3, CN's II-XII intact bilaterally, no focal motor deficits and no sensory deficits noted Sensorium / Orientation: awake and alert Speech: speech normal Psych Psych Narrative: Patient appears to be mildly anxious Results Lab / Micro Data Result Diagrams: 12/13/21 14:50 12/13/21 14:50 Labs: Laboratory Results - last 24 hr 12/13/21 15:03: Ur Drug Screen Comment Assessment & Plan Assessment/Plan (1) Opiate dependence: PLAN: 1. Acute opioid withdrawal (fentanyl)-patient will be admitted to [place] [address], orders were entered using the opiate addiction order set, patient will be seen by addiction manager social. Patient has a past history of endocarditis of the tricuspid valve, patient's labs are pending at this time, he does not appear to be acutely ill, he is afebrile, he is not tachycardic. #2 polysubstance abuse-complicates care, prognosis, and recovery #3 history of endocarditis-again patient shows no evidence of endocarditis at this time, he does not appear unwell Charges/Coding Visit Charges Inpatient E&M: 05986 Init Hosp L3
--- NOTE | 2021-12-13 15:15 | EDS_ITS ---
HPI History of Present Illness Chief Complaint: Substance Abuse Informant: patient Onset/Context/Timing Onset: Yesterday Context: Gradual Onset Timing: Continuous Worsened by: Nothing Relieved by: Nothing Associated Symptoms Associated Symptoms: Positive for palpatations; Negative for vomiting*, diarrhea*, fever*, rash*, seizure, tremor, change in mental status, suicidal ideation and homicidal ideation Narrative Narrative: Patient presents requesting detox for fentanyl use. Patient states he injects daily. Patient states his last use was yesterday. Patient states he normally injects approximately 2 g/day. Patient states he has been through detox here in the past. Patient thinks his last detox was approximately a year ago. Patient admits to some palpitations. Patient denies any nausea or vomiting. Patient denies any fevers. Patient denies any seizures or tremors. Patient denies any suicidal homicidal ideations. [facility] Medical History Endocarditis Heroin abuse Hypertension Home Medications NK 11/15/21 [History Last Taken Unknown] Allergy/AdvReac Type Severity Reaction Status Date / Time No Known Allergies Allergy Verified 12/13/21 14:12 Social History Smoking Status: Current every day smoker tobacco type: cigarettes substance use type: opiates and IV drugs ROS ROS ED Constitutional Constitutional ED: Reports chills and subjective; Denies fever(s) Eyes Eyes: Denies blurry vision or change in vision ENT ENT ED: Reports rhinorrhea; Denies sore throat Cardiovascular Cardiovascular: Reports palpitations; Denies chest pain Respiratory/Chest Respiratory/Chest: Denies cough or dyspnea Gastrointestinal Gastrointestinal: Denies nausea or vomiting Genitourinary Genitourinary ED: Reports dysuria; Denies hematuria Musculoskeletal Musculoskeletal: Denies back pain or neck pain Integumentary Denies abscess or rash Neurologic Neurologic: Denies headache(s) or weakness Allergic/Immunologic Allergic/Immunologic ED: Denies mouth swelling or urticaria EXAM Physical Exam Const Vital Signs: 12/13/21 14:12 Temperature 98 F Temperature Source Temporal Pulse Rate 83 Respiratory Rate 14 Blood Pressure 127/86 H Blood Pressure Mean 99 Pulse Ox 100 Oxygen Delivery Method Room Air Positive well nourished and well developed General Appearance ED: well developed HEENT Reports moist mucous membranes Neck supple and no JVD Resp normal respiratory effort and clear to auscultation bilaterally Cardio regular rate, regular rhythm and no murmurs GI normal to inspection, nondistended, normoactive bowel sounds and non-tender Palpation: soft Extremity normal to inspection General Extremety ED: Negative for edema or tenderness General Extremity: Negative for edema Neuro oriented x3, CN's II-XII intact bilaterally and no sensory deficits noted Sensorium / Orientation: alert Motor Exam: strength 5/5 throughout Psych mental status grossly normal Skin no rashes or lesions noted Skin Narrative: There are track hernandez noted on the lower legs bilaterally, worse on the left. There is no erythema or evidence of any abscess formation. MDM MDM MDM Narrative Medical decision making narrative: Basic labs were obtained. Case was discussed with the hospitalist. He will admit the patient to his service. Patient understood and was agreeable with the plan. All questions were answered. Lab Data Labs: Laboratory Results - last 24 hr 12/13/21 15:03 Ur Drug Screen Comment Discharge Plan Triage Chief Complaint: Substance Abuse ED Provider: Charly Dunham Dx/Rx/DC Orders Clinical Impression: Opiate dependence, Substance abuse Prescriptions: No Action NK RF: 0 Primary Care Provider: Care Physician,No Primary Referrals: Care Physician,No Primary [Primary Care Provider] - Disposition Disposition: Acute Care Hospital [facility]
[2021-12-13 15:35] VITALS: BP 144/78; PULSE 94; RESP 19; TEMP 37.1
[2021-12-13 15:40] LABS: Amphetamine Urine VISTA POSITIVE (<1000 ng/mL); Barbiturate Urine VISTA NEGATIVE (< 200 ng/mL); Benzodiazepine Urine VISTA NEGATIVE (< 200 ng/mL); Cocaine Urine VISTA NEGATIVE (< 300 ng/mL); Ecstacy Urine VISTA NEGATIVE (< 500 ng/mL); Methadone Urine VISTA NEGATIVE (< 300 ng/mL); PCP Urine VISTA NEGATIVE (< 25 ng/mL); THC Urine VISTA NEGATIVE (< 50 ng/mL); Vista UDS pH Range 5
[2021-12-13 15:45] VITALS: BMI 24.8
[2021-12-13 15:49] LABS: AST(SGOT) 14 U/L (15-37); Alanine Aminotransfer ALT/SGPT 32 U/L (16-61); Albumin, Serum 3.9 g/dL (3.2-5.0); Alkaline Phosphatase 92 U/L (45-117); Anion Gap 9 (5-15); BUN 24 mg/dL (7-18); BUN/Creat Ratio 15.7 RATIO (10-20); Calcium,Total 8.9 mg/dL (8.5-10.1); Chloride 100 mmol/L (98-107); Creatinine, Serum 1.53 mg/dL (0.70-1.30); EST Glomerular Filtration Rate 55 mL/min (>60); Est Glom Filt Rate - Afr Amer 67 mL/min (>60); Estimated Creatinine Clearance 73.26 ml/min; Globulin 3.8 g/dL (2.2-4.2); Glucose 166 mg/dL (74-106); Potassium 3.9 mmol/L (3.5-5.1); Protein, Total 7.7 g/dL (6.4-8.2); Sodium Level 134 mmol/L (136-145)
[2021-12-13] MEDS: Dicyclomine 10 MG Capsule 20 MG PO (17:09)
[2021-12-13] MEDS: Buprenorphine HCl 2 MG TAB.SUBL SL (17:09)
--- NOTE | 2021-12-13 17:14 | NURSING ---
ensure enlive not ordered, pt said he does not want to drink it.
[2021-12-13 21:13] VITALS: BP 128/85; PULSE 86; RESP 18; TEMP 36.9; O2SAT 98
[2021-12-13] MEDS: Ondansetron 8 MG Tablet PO (21:19)
[2021-12-13] MEDS: traZODone 100 MG Tablet PO (21:19)
[2021-12-13] MEDS: hydrOXYzine PAM 25 MG Capsule 50 MG PO (21:21)
[2021-12-14 01:32] VITALS: BP 115/69; PULSE 76; RESP 16; TEMP 37.2; O2SAT 97
[2021-12-14] MEDS: Buprenorphine HCl 2 MG TAB.SUBL SL ×3 (01:34→17:14)
[2021-12-14 06:08] VITALS: BP 117/70; PULSE 73; RESP 16; TEMP 36.7; O2SAT 93
[2021-12-14] MEDS: Methocarbamol 750 MG Tablet 1500 MG PO ×2 (06:13→14:27)
[2021-12-14] MEDS: Dicyclomine 10 MG Capsule 20 MG PO ×3 (06:13→20:36)
--- NOTE | 2021-12-14 07:31 | PCM.PN.HOSP ---
Subjective Subjective Feels ok currently. Has been through this program before, but reverted to using again as he quickly fell into the same people. Objective Data Objective Data Vital Signs: Vital Signs Temp Pulse Resp BP Pulse Ox 36.7 C 73 16 117/70 93 12/14/21 06:08 12/14/21 06:08 12/14/21 06:08 12/14/21 06:08 12/14/21 06:08 Oxygen Delivery Method Room Air Weight: 83.178 kg Body Mass Index (BMI) 24.8 Intake & Output: Intake and Output for Last 24 Hours 12/12/21 12/13/21 12/14/21 23:59 23:59 23:59 Intake Total 600 / 600 200 / 200 Balance 600 / 600 200 / 200 Lab / Micro Data Result Diagrams: 12/13/21 14:50 12/13/21 14:50 Labs: Laboratory Results - last 24 hr 12/13/21 14:50: WBC Cancelled, Corrected WBC Cancelled, RBC Cancelled, Hgb Cancelled, Hct Cancelled, MCV Cancelled, MCH Cancelled, MCHC Cancelled, RDW Std Deviation Cancelled, RDW Coeff of Chase Cancelled, Plt Count Cancelled, MPV Cancelled, Immature Gran % (Auto) Cancelled, Neut % (Auto) Cancelled, Lymph % (Auto) Cancelled, Hand % (Auto) Cancelled, Eos % (Auto) Cancelled, Baso % (Auto) Cancelled, Absolute Neuts (auto) Cancelled, Absolute Lymphs (auto) Cancelled, Total Counted Cancelled, Neutrophils % (Manual) Cancelled, Band Neutrophils % Cancelled, Lymphocytes % (Manual) Cancelled, Monocytes % (Manual) Cancelled, Eosinophils % (Manual) Cancelled, Basophils % (Manual) Cancelled, Metamyelocytes % Cancelled, Myelocytes % Cancelled, Promyelocytes % Cancelled, Blast Cells % Cancelled, Plasma Cell % (Manual) Cancelled, Other Cells % Cancelled, Nucleated RBC % Cancelled, Nucleated RBCs/100 WBC Cancelled, Differential Comment Cancelled, Diff Path Review Cancelled, Hypersegmented Neuts Cancelled, Atypical Lymphocytes Cancelled, Reactive Lymphocytes Cancelled, Smudge Cells Cancelled, Toxic Granulation Cancelled, Toxic Vacuolation Cancelled, Dohle Bodies Cancelled, Momo Rods Cancelled, Platelet Estimate Cancelled, Plt Morphology Comment Cancelled, RBC Morphology Cancelled, Polychromasia Cancelled, Hypochromasia Cancelled, Poikilocytosis Cancelled, Basophilic Stippling Cancelled, Anisocytosis Cancelled, Microcytosis Cancelled, Macrocytosis Cancelled, Spherocytes Cancelled, Sickle Cells Cancelled, Target Cells Cancelled, Tear Drop Cells Cancelled, Ovalocytes Cancelled, Stomatocytes Cancelled, [place] Bodies Cancelled, [place] Cells Cancelled, Bite Cells Cancelled, Crenated Cell Cancelled, Acanthocytes (Spur) Cancelled, Rouleaux Cancelled, Schistocytes Cancelled 12/13/21 14:50: Sodium 134 L, Potassium 3.9, Chloride 100, Carbon Dioxide 25.0, Anion Gap 9, BUN 24 H, Creatinine 1.53 H, Estim Creat Clear Calc 73.26, Est GFR (MDRD) Af Amer 67, Est GFR (MDRD) Non-Af 55 L, BUN/Creatinine Ratio 15.7, Glucose 166 H, Calcium 8.9, Total Bilirubin 0.60, AST 14 L, ALT 32, Alkaline Phosphatase 92, Total Protein 7.7, Albumin 3.9, Globulin 3.8, Albumin/Globulin Ratio 1.0 12/13/21 14:50: Ethyl Alcohol 5.0 12/13/21 15:03: Urine Opiates Screen NEGATIVE, Urine Methadone Screen NEGATIVE, Ur Barbiturates Screen NEGATIVE, Ur Phencyclidine Scrn NEGATIVE, Ur Amphetamines Screen POSITIVE H, MDMA (Ecstasy) Screen NEGATIVE, U Benzodiazepines Scrn NEGATIVE, Urine Cocaine Screen NEGATIVE, U Cannabinoids Screen NEGATIVE, Ur Drug Screen Comment Physical Exam Const alert, no apparent distress and average body habitus Skin Skin Narrative: no rashes. injection sites without erythema. Neuro Sensorium / Orientation: awake and alert Psych affect normal Assessment & Plan Assessment/Plan (1) Opiate dependence: PLAN: 1. Acute opioid withdrawal (fentanyl) Buprenorphine taper as well as adjunctive medication to help with nausea Associated withdrawal. orders were entered using the opiate addiction order set, patient will be seen by addiction executive secretary social welfare. 2. Endocarditis of the tricuspid valve, patient's labs are pending at this time, he does not appear to be acutely ill, he is afebrile, he is not tachycardic. since yo endocarditis, he does not share needles and uses clean needles. 3. polysubstance abuse-complicates care, prognosis, and recovery Charges/Coding Visit Charges Inpatient E&M: 69274 Subs Hosp L1
[2021-12-14 09:05] VITALS: BP 125/82; PULSE 84; RESP 16; TEMP 37.3; O2SAT 98
--- NOTE | 2021-12-14 10:23 | ADDICTION ---
This automotive service writer met with PT to conduct ASAM, MSE, AUDIT, DUDIT assessments and to plan for d/c. PT A+Ox4 and participated actively. All assessments completed and placed in PT's chart. PT plans to f/u with follow-up treatment services, however he wanted to think about whether he wants residential or not. This worker offered resources and informed him that Gladis will be in tomorrow to touch base on whether or not he wants inpatient treatment and place the referral. PT did not indicate a need for transportation post d/c from [facility].
[2021-12-14 14:23] VITALS: BP 124/95; PULSE 92; RESP 16; TEMP 36.9; O2SAT 100
[2021-12-14] MEDS: cloNIDine HCl 0.1 MG Tablet PO (14:27)
--- NOTE | 2021-12-14 15:19 | CHAPLAIN ---
Type of Pastoral Visit _x__ Initial Visit ___ Follow-up Visit ___ On-call Visit ___ General Patient Visit ___ Spiritual Assessment ___ Family Conference ___ Bereavement ___ Rapid Response ___ Code Blue ___ Other (describe below) Pastoral Care Referral From _x__ Patient ___ Family ___ Nurse ___ Physician ___ Ecd ___ Superintendent Marine ___ Other (describe below) Sacrament/Intervention _x__ Active listening ___ Anointing ___ Adventism ___ Bereavement ___ Communion ___ Reyna exploration ___ ___ Life review ___ Prayer ___ Reconciliation ___ Sacrament of Sick _x__ Supportive presence ___ Wedding ___ Other (describe below) Pastoral Comments introduced self and role of the transformation architect to the patient; pt welcomed this transformation architect to sit and take some time with him; conversation was mostly casual talk; pt did admit his long struggle with drugs and that he has not had a goal for life; pt did say that that is something I should think about; pt states he has family but sometimes they pressure me too much
[2021-12-14] MEDS: traZODone 100 MG Tablet PO (20:42)
[2021-12-14 20:45] VITALS: BP 131/87; PULSE 87; RESP 16; TEMP 37.2; O2SAT 99
[2021-12-15] MEDS: Buprenorphine HCl 2 MG TAB.SUBL SL ×3 (00:58→17:01)
[2021-12-15] MEDS: Ondansetron 8 MG Tablet PO ×2 (00:59→19:58)
[2021-12-15] MEDS: Acetaminophen 500 MG Tablet PO (00:59)
[2021-12-15 01:01] VITALS: BP 104/77; PULSE 88; RESP 16; TEMP 36.7; O2SAT 98
[2021-12-15 08:00] VITALS: BP 143/93; PULSE 80; RESP 16; TEMP 36.7; O2SAT 100
--- NOTE | 2021-12-15 08:17 | PCM.PN.HOSP ---
Subjective Subjective No new events. Patient unsure if he wants to do a residential program and I would like to talk to his family about that. Objective Data Objective Data Vital Signs: Vital Signs Temp Pulse Resp BP Pulse Ox 36.7 C 88 16 104/77 98 12/15/21 01:01 12/15/21 01:01 12/15/21 01:01 12/15/21 01:01 12/15/21 01:01 Oxygen Delivery Method Room Air Weight: 83.178 kg Body Mass Index (BMI) 24.8 Intake & Output: Intake and Output for Last 24 Hours 12/13/21 12/14/21 12/15/21 23:59 23:59 23:59 Intake Total 600 / 600 200 / 200 Balance 600 / 600 200 / 200 Lab / Micro Data Result Diagrams: 12/13/21 14:50 12/13/21 14:50 Physical Exam Const alert and no apparent distress Constitutional Narrative: Lying in bed. Psych Psych Narrative: Flat affect Assessment & Plan Assessment/Plan (1) Opiate dependence: PLAN: 1. Acute opioid withdrawal (fentanyl) Buprenorphine taper as well as adjunctive medication to help with nausea Associated withdrawal. orders were entered using the opiate addiction order set, patient will be seen by addiction geriatric social work professor. Patient stating that he is unsure if he wants to go to residential program and would like to talk to with his family. Patient unfortunate cannot talk to his family at this time given the current protocol that we have for acute withdrawal patients. There is unclear if patient is actually legitimately interested in getting his family's input or just saying that so that he can return just revert back to doing what he was doing before which is using fentanyl. Patient will have completed his buprenorphine taper on Friday. Patient does not want to go into a residential program then the plan would be for him to be discharged thereafter. 2. Endocarditis of the tricuspid valve, patient's labs are pending at this time, he does not appear to be acutely ill, he is afebrile, he is not tachycardic. since yo endocarditis, he does not share needles and uses clean needles. 3. polysubstance abuse-complicates care, prognosis, and recovery Charges/Coding Visit Charges Inpatient E&M: 73580 [facility] Hosp L1
[2021-12-15] MEDS: cloNIDine HCl 0.1 MG Tablet PO ×2 (08:42→14:11)
[2021-12-15] MEDS: Gabapentin 300 MG Capsule PO ×2 (08:43→14:11)
[2021-12-15 14:00] VITALS: BP 122/80; PULSE 89; RESP 18; TEMP 37.1; O2SAT 99
[2021-12-15] MEDS: Methocarbamol 750 MG Tablet 1500 MG PO ×2 (14:11→20:26)
[2021-12-15] MEDS: Dicyclomine 10 MG Capsule 20 MG PO ×2 (14:11→20:26)
[2021-12-15 19:47] VITALS: BP 145/83; PULSE 76; RESP 16; TEMP 37.3; O2SAT 97
[2021-12-15] MEDS: Ibuprofen 600 MG Tablet PO (19:58)
[2021-12-15] MEDS: hydrOXYzine PAM 25 MG Capsule 50 MG PO (19:58)
[2021-12-16 02:07] VITALS: BP 109/66; PULSE 64; RESP 16; TEMP 37; O2SAT 98
[2021-12-16] MEDS: Buprenorphine HCl 2 MG TAB.SUBL SL (05:47)
[2021-12-16] MEDS: Dicyclomine 10 MG Capsule 20 MG PO ×2 (09:24→20:47)
[2021-12-16] MEDS: hydrOXYzine PAM 25 MG Capsule 50 MG PO ×2 (09:24→20:47)
[2021-12-16 09:28] VITALS: BP 108/71; PULSE 62; RESP 18; TEMP 37.1; O2SAT 95
--- NOTE | 2021-12-16 12:01 | PN.HOSP_ITS ---
Subjective Subjective Patient states he is feeling fine. No current complaints. Patient states he is agreeable to go to inpatient rehab at discharge. Addiction medicine and to evaluate later today. Objective Data Objective Data Vital Signs: Vital Signs Temp Pulse Resp BP Pulse Ox 98.7 F 62 18 108/71 95 12/16/21 09:28 12/16/21 09:28 12/16/21 09:28 12/16/21 09:28 12/16/21 09:28 Oxygen Delivery Method Room Air Weight: 83.178 kg Body Mass Index (BMI) 24.8 Intake & Output: Intake and Output for Last 24 Hours 12/14/21 12/15/21 12/16/21 23:59 23:59 23:59 Intake Total 200 / 200 1000 / 1000 Balance 200 / 200 1000 / 1000 Lab / Micro Data Result Diagrams: 12/13/21 14:50 12/13/21 14:50 Physical Exam Const alert, oriented x3 and no apparent distress Constitutional Narrative: Young white male lying in bed, appears comfortable, nontoxic Exam Limitations: no limitations HEENT head/scalp atraumatic and moist oral mucous membranes Head and Scalp: normocephalic Resp normal respiratory effort, no retractions, no use of accessory muscles and clear to auscultation bilaterally Auscultation: Negative for crackles, rales, rhonchi or wheezes Cardio regular rate, regular rhythm, S1 normal heart sound, S2 normal heart sound, no murmurs, no rub, no gallops, no clicks and no JVD GI normal to inspection, nondistended, normoactive bowel sounds, soft to palpation, non-tender and non-distended Extremity no clubbing, cyanosis or edema Peripheral Pulses: Yes pulses 2+ throughout Neuro oriented x3, moves all extremities and no focal motor deficits Sensorium / Orientation: awake and alert Speech: speech normal Assessment & Plan Assessment/Plan (1) Opiate dependence: (2) Opiate withdrawal: (3) Substance abuse: PLAN: Acute opiate withdrawal -Patient uses fentanyl at baseline -Admits to use for many years -Uses IV approximately 2 g daily -Has been through detox previously -Complete Suboxone taper today -Has been on supportive medications for symptomatic withdrawal -Patient is agreeable to residential treatment and will discharge to [facility] tomorrow -Pickup time unclear at this point History of 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
[2021-12-16] MEDS: Ibuprofen 600 MG Tablet PO (12:12)
[2021-12-16 14:56] VITALS: BP 121/82; PULSE 63; RESP 18; TEMP 36.6; O2SAT 97
[2021-12-16] MEDS: cloNIDine HCl 0.1 MG Tablet PO (15:18)
[2021-12-16] MEDS: Methocarbamol 750 MG Tablet 1500 MG PO (15:18)
[2021-12-16 20:42] VITALS: BP 117/82; PULSE 69; RESP 16; TEMP 36.8; O2SAT 99
[2021-12-16] MEDS: traZODone 100 MG Tablet PO (20:47)
[2021-12-17 04:00] VITALS: BP 105/71; PULSE 80; RESP 18; TEMP 37; O2SAT 97
[2021-12-17 09:25] VITALS: BP 122/69; PULSE 86; RESP 16; TEMP 36.8; O2SAT 96
--- NOTE | 2021-12-17 10:40 | ADDICTION ---
Pt decided that he is interested in residential treatment. Pt was approved for [facility] in-patient treatment in [place]. They will provide transportation and will be here around 11-11:30 to pick him up. They will call the nurses station when they arrive.
--- NOTE | 2021-12-17 10:47 | PCM.DC ---
Discharge Instructions Diet Discharge Diet: No restrictions Activity Discharge Activity: Return to Normal Activity Weight Bearing Status: Full weight bearing Follow Up Care Test Results: Test results from this visit will be discussed in further detail at your follow-up appointment, if applicable. Discharge Plan Admission Admit Date/Time: 12/13/21 15:08 Primary Reason for Your Visit: opiate detox Attending Provider: Ab Verduzco Primary Care Provider: Care Physician,No Primary Consulting Providers: Ab Verduzco ; Charly Piper ; Clary Story Discharge Orders/Prescriptions Prescriptions: No Action NK RF: 0 Referrals / Follow Up: Care Physician,No Primary [Primary Care Provider] - Disposition Disposition (needs filled in before D/C Order can be placed): DC/Tx to Another Type of HCF
--- NOTE | 2021-12-17 20:18 | DS.PCM_ITS ---
Providers Date of Admission: 12/13/21 Date of Discharge: 12/17/21 Primary Care Physician: No Primary Care Phys Reason For Visit: OPIATE DETOX Diagnosis Discharge Diagnosis (1) Opiate dependence: Status: Acute Code(s): F11.20 - Opioid dependence, uncomplicated (2) Opiate withdrawal: Status: Inactive Code(s): F11.23 - Opioid dependence with withdrawal (3) Substance abuse: Status: Acute Code(s): F19.10 - Other psychoactive substance abuse, uncomplicated Plan: Final diagnosis: #1 acute opiate withdrawal #2 chronic opiate addiction Medications at Discharge Home Medications NK 11/15/21 Hospital Course Operations None Procedures None Summary of Care Provided Minutes Spent on Discharge: 31 Hospital Course: This 36-year-old white male presented to the emergency room at [facility] requesting services for opiate detox. Patient used fentanyl as an outpatient, patient's symptoms of withdrawal appear to be mild when he was evaluated in the emergency room. Patient was admitted to [place] [address], orders were entered using the opiate detox order set, the patient was seen by addiction child protective services social worker. Patient agreed to go to an inpatient facility for continuing detox treatment. On 12/17/2021, patient was seen and examined: On examination he appeared in good health and spirits. Vital signs as documented. Skin warm and dry and without overt rashes. Neck without JVD, neck was supple, trachea midline, thyroid was normal. Lungs clear bilaterally, normal air movement was noted. Heart exam notable for regular rhythm, normal sounds and absence of murmurs, rubs or simmons ps. Abdomen unremarkable and without evidence of organomegaly, masses, or abdominal aortic enlargement. Bowel sounds are present, abdomen is not distended. Extremities nonedematous, no cyanosis was noted, no clubbing was noted. Neuro: Cranial nerves II through XII are grossly intact, no focal motor deficits were noted, sensation to light touch and pinprick intact, motor exam 5/5 throughout. Psych: Patient is alert and oriented x3, he does not appear anxious or depressed, he does not appear agitated. On 12/17/2021, patient was seen and examined and felt to be in stable condition for discharge to an inpatient detox facility. Weight / BMI Weight Weight: 83.178 kg Body Mass Index (BMI) 24.8 ABG / Lab / Microbiology Data Result Diagrams: 12/13/21 14:50 12/13/21 14:50 D/C Instructions Discharge Diet: No restrictions Weight Bearing Status: Full weight bearing Meaningful Use Info Meaningful Use Diagnoses (Choose all that apply): None applicable Discharge Plan Admission Admit Date/Time: 12/13/21 15:08 Primary Reason for Your Visit: opiate detox Attending Provider: Ab Verduzco Primary Care Provider: Care Physician,No Primary Consulting Providers: Ab Verduzco ; Charly Piper ; Clary Story Discharge Orders/Prescriptions Prescriptions: No Action NK Referrals / Follow Up: Care Physician,No Primary [Primary Care Provider] - Disposition Disposition (needs filled in before D/C Order can be placed): DC/Tx to Another T ype of HCF Charges/Coding Visit Charges Inpatient E&M: 60874 Disch Hosp
== END 2021-12-17 12:13 | disposition other institution (70) | DRG 772 ==
LOC: ED 15:18 → MS3 12-14 06:56
PROVIDERS: Admitting Provider Internal Medicine; Emergency Provider Emergency Medicine; Visit Provider Internal Medicine
DX: F11.23 Opioid dependence with withdrawal (principal); F19.10 Other psychoactive substance abuse, uncomplicated; F17.210 Nicotine dependence, cigarettes, uncomplicated; I10 Essential (primary) hypertension; Z95.2 Presence of prosthetic heart valve
CPT/HCPCS: 36415; 80053; 80307; 82077; 97802; 99218; 99283; 99406; G0378

== ENCOUNTER 2022-12-17 06:38 | Inpatient (IN) | payer MEDICAID, SELFPAY ==
[2022-12-17 06:47] VITALS: BP 148/92; PULSE 87; RESP 16; TEMP 37; O2SAT 99; BMI 27.6
--- NOTE | 2022-12-17 07:05 | EDS_ITS ---
HPI History of Present Illness Chief Complaint: Substance Abuse Detail of Chief Complaint: Requesting detox for IV fentanyl abuse. Informant: patient Onset/Context/Timing Onset: Month(s) Context: Gradual Onset Timing: Continuous Current Severity: Mild Maximum Severity: Mild Narrative Narrative: 37-year-old male history of IV fentanyl abuse. Requesting detox. History of endocarditis and hep C. Prior valve repair. Patient also has a abscess in his left axilla he would like drained. Prior similar symptoms: Yes Recent Illness/Hospitalization: No PFSH PFSH Medical History Endocarditis Heroin abuse History of infective endocarditis Hypertension Home Medications NK 11/15/21 [History Last Taken Unknown] Allergy/AdvReac Type Severity Reaction Status Date / Time No Known Allergies Allergy Verified 12/17/22 06:47 Social History Smoking Status: Current every day smoker tobacco type: cigarettes substance use type: opiates and IV drugs ROS ROS ED ROS Narrative Denies. Review of Systems ROS Unobtainable: Denies due to encephalopathy Constitutional Constitutional ED: Denies chills or fever(s) Eyes Eyes: Denies blurry vision ENT ENT ED: Denies ear pain Cardiovascular Cardiovascular: Denies palpitations Respiratory/Chest Respiratory/Chest: Denies dyspnea Gastrointestinal Gastrointestinal: Denies abdominal pain Genitourinary Genitourinary ED: Denies dysuria Musculoskeletal Musculoskeletal: Denies arthralgias Integumentary Denies abscess Neurologic Neurologic: Denies headache(s) Psychiatric Psychiatric: Denies anxiety Endocrine Endocrinology: Denies cold intolerance Hematologic/Lymphatic Hematologic/Lymphatic: Denies easy bleeding Allergic/Immunologic Allergic/Immunologic ED: Denies mouth swelling EXAM Physical Exam Narrative Exam Narrative: 37-year-old male no acute distress. Vital signs stable afebrile. H EENT exam unremarkable. Neck nontender no lymphadenopathy. Lungs clear to auscultation. Heart regular rhythm rate about 85 no murmur. Chest wall nontender. Well- healed prior sternotomy. Abdomen soft nontender. Moving all 4 extremities. Nontender no edema. Left axilla in his armpit he has about a 1+ inch abscess that will need drain. No significant cellulitis. It is mildly tender. Neurologically is awake and alert with no focal motor deficits. Const Vital Signs: 12/17/22 06:47 12/17/22 07:36 Temperature 98.6 F 98.4 F Temperature Source Temporal Temporal Pulse Rate 87 95 Respiratory Rate 16 15 Blood Pressure 148/92 H 157/80 H Blood Pressure Mean 110 105 Pulse Ox 99 95 Oxygen Delivery Method Room Air Positive well nourished and well developed; Negative for obese, cachectic, contractures or unkempt General Appearance ED: well developed and NAD; Negative for unkempt, cachectic, contractures or pallor Nutritional Appearance: Negative for cachectic or obese HEENT Reports moist mucous membranes atraumatic; Negative for trauma or tenderness Eyes PERRL and EOMs intact bilaterally General Eye ED: Negative for pale conjunctiva, scleral icterus or other Neck no lymphadenopathy, supple and no JVD Thyroid: Negative for tender Lymph Lymphatic: no lymphadenopathy noted; Negative for lymphadenopathy Chest Wall inspection of chest normal and palpation of chest normal Chest Narrative: Prior sternotomy well-healed. Resp normal respiratory effort and clear to auscultation bilaterally Effort and Inspection: Negative for retractions Auscultation: Negative for rales, rhonchi or wheezes Cardio regular rate, regular rhythm, S1 normal heart sound, S2 normal heart sound and no murmurs GI soft to palpation, non-tender, non-distended and no masses Inspection: Negative for abdominal distention Back/Spine no CVA tenderness General Back: Negative for CVA tenderness Cervical Spine: Negative for cervical spine tenderness Thoracic Spine / Upper Back: Negative for thoracic spinal tenderness Lumbar Spine / Lower Back: Negative for lumbar spinal tenderness Coccyx: Negative for swelling Extremity Extremity Narrative: Left axillary abscess. General Extremety ED: Yes tenderness Neuro oriented x3 and CN's II-XII intact bilaterally Sensorium / Orientation: alert, oriented to person, oriented to place and oriented to time; Negative for confused, lethargic or stuporous Speech: speech normal Motor Exam: strength 5/5 throughout Psych mental status grossly normal and thought process normal Appearance: Negative for unkempt Attitude: No belligerent Mood & Affect: Negative for depressed Skin General Skin Exam: Negative for jaundice or pallor Lesions: no lesions Rashes: no rashes Trauma: Negative for abrasion MDM MDM MDM Narrative Medical decision making narrative: 37-year-old requesting detox for fentanyl abuse. He also has a left axillary abscess he will need to be I&D. I spoke to the hospitalist the patient will be admitted to our detox unit. Patient be started on Keflex. History & Record Review Discussion w/independent historian: Patient Additional record(s) reviewed:: Prior inpatient record, Prior outpatient record, Prior ED visit and Prior labs Lab Data Labs: Laboratory Results - last 24 hr 12/17/22 07:32 Ur Drug Screen Comment Procedures Other Procedures Procedure(s): Left axillary abscess. Cleaned with iodine. Local anesthetized with lidocaine. I made about a 1 inch incision. Really could not express much pus over the small pustule above it that I was able to open up and express pus. This is mainly infected tissue and swollen lymph nodes. 2 inches of half-inch iodinated packing material were placed. Patient tolerated procedure well. A dressing will be applied. Discharge Plan Dx/Rx/DC Orders Clinical Impression: Admitted to substance misuse detoxification center, Opiate dependence, Substance abuse, Abscess of left axilla Disposition Disposition: Acute Care Hospital [facility]
[2022-12-17 07:36] VITALS: BP 157/80; PULSE 95; RESP 15; TEMP 36.9; O2SAT 95
[2022-12-17] MEDS: Lidocaine 1% (20 ml mdv) 20 ML Vial 10 ML INFILT (07:38)
[2022-12-17 07:53] LABS: Amphetamine Urine VISTA POSITIVE (<1000 ng/mL); Barbiturate Urine VISTA NEGATIVE (< 200 ng/mL); Benzodiazepine Urine VISTA NEGATIVE (< 200 ng/mL); Cocaine Urine VISTA NEGATIVE (< 300 ng/mL); Ecstacy Urine VISTA POSITIVE (< 500 ng/mL); Methadone Urine VISTA NEGATIVE (< 300 ng/mL); PCP Urine VISTA NEGATIVE (< 25 ng/mL); THC Urine VISTA NEGATIVE (< 50 ng/mL); Vista UDS pH Range 6
[2022-12-17 08:03] LABS: Absolute Lymphocyte Count 1.01 X10^3/uL (0.83-4.51); Absolute Neutrophil Count 5.5 X10^3/uL (2.0-7.7); Basophil# 0.04 X10^3/uL; Basophil% 0.5 % (0-1); Eosinophil# 0.32 X10^3/uL; Eosinophils% 4.2 % (0-5); Hematocrit 37.8 % (40-54); Lymphocyte # 1.01 X10^3/ul (0.83-4.51); Lymphocyte % 13.3 % (19-41); Mean Corp Hgb Conc 31.7 g/dL (32-36); Mean Corpuscular Hgb 27.8 pg (27.0-32.0); Mean Corpuscular Volume 87.5 fL (80-94); Mean Platelet Vol. 10.6 fl (6.2-12.0); Monocyte# 0.71 X10^3/uL; Monocyte% 9.3 % (0-10); NRBC Flagged by Analyzer 0 % (0-5); Neutrophil # 5.51 X10^3/uL (2.7-7.7); Neutrophil % 72.3 % (47-70); Platelet Count 234 K/mm3 (150-450); RBC Distribution Width CV 12.7 % (11.6-14.6); RBC Distribution Width SD 40.8 fl (35.1-43.9); Red Blood Count 4.32 M/mm3 (4.6-6.2); White Blood Count 7.6 K/mm3 (4.4-11.0)
[2022-12-17] MEDS: Cephalexin 250 MG Capsule 500 MG PO (08:14)
[2022-12-17 08:23] LABS: ALB/GLOB Ratio 0.7 RATIO (0.9-2.4); AST(SGOT) 19 U/L (15-37); Alanine Aminotransfer ALT/SGPT 35 U/L (16-61); Albumin, Serum 2.9 g/dL (3.2-5.0); Alkaline Phosphatase 89 U/L (45-117); Anion Gap 3 (5-15); BUN 11 mg/dL (7-18); BUN/Creat Ratio 14.2 RATIO (10-20); Calcium,Total 8.5 mg/dL (8.5-10.1); Chloride 101 mmol/L (98-107); Creatinine, Serum 0.78 mg/dL (0.70-1.30); EST Glomerular Filtration Rate 119 mL/min (>60); Est Glom Filt Rate - Afr Amer 144 mL/min (>60); Estimated Creatinine Clearance 142.32 ml/min; Globulin 4.4 g/dL (2.2-4.2); Glucose 107 mg/dL (74-106); Potassium 4.1 mmol/L (3.5-5.1); Protein, Total 7.3 g/dL (6.4-8.2); Sodium Level 136 mmol/L (136-145)
--- NOTE | 2022-12-17 08:52 | HP.PCM.HOS_ITS ---
HPI - General General Date of Admission: 12/17/22 Date of Service: 12/17/22 Chief Complaint: requestin opiate withdrawal HPI Narrative ALISON SIMENTAL, is a 37 M who presents presents seeking treatment for opiate withdrawal. Patient uses fentanyl which he injects. Patient's last use was around 2200 on the . Patient has myalgias. Patient additionally developed some soreness in his left armpit. Patient was seen in the emergency room and was diagnosed with an abscess in his left armpit and underwent drainage which had purulent fluid expressed. Patient denies injecting into his axilla. He denies any fever or chills. [facility] Medical History (Updated 12/17/22 @ 08:[address] Charly Piper DO) Endocarditis Heroin abuse History of infective endocarditis Hypertension Home Medications NK 11/15/21 [History Last Taken Unknown] Allergy/AdvReac Type Severity Reaction Status Date / Time No Known Allergies Allergy Verified 12/17/22 06:47 no significant family history Surgical History (Updated 12/17/22 @ 08:[address] Charly Piper DO) S/P heart valve repair Social History Smoking Status: Current every day smoker tobacco type: cigarettes substance use type: opiates and IV drugs ROS ROS Narrative All review of systems were negative except as mentioned above in the history of present illness and the other review of systems. Vital Signs Vital Signs Vital Signs: 12/17/22 06:47 12/17/22 07:36 Temperature 37.0 C 36.9 C Temperature Source Temporal Temporal Pulse Rate 87 95 Respiratory Rate 16 15 Blood Pressure 148/92 H 157/80 H Blood Pressure Mean 110 105 Pulse Ox 99 95 Oxygen Delivery Method Room Air Weight Weight: 92.5 kg Body Mass Index (BMI) 27.6 Physical Exam Const alert and no apparent distress HEENT normocephalic and head/scalp atraumatic Resp normal respiratory effort, no retractions, no use of accessory muscles and clear to auscultation bilaterally Cardio regular rate, regular rhythm, S1 normal heart sound and S2 normal heart sound GI normal to inspection, nondistended, normoactive bowel sounds and soft to palpa tion Extremity Extremity Narrative: Left axillary abscess that has been open but still purulent fluid can be expressed with induration extending anteriorly. Results Lab / Micro Data Result Diagrams: 12/17/22 07:53 12/17/22 07:53 Labs: Laboratory Results - last 24 hr 12/17/22 07:32: Urine Opiates Screen NEGATIVE, Urine Methadone Screen NEGATIVE, Ur Barbiturates Screen NEGATIVE, Ur Phencyclidine Scrn NEGATIVE, Ur Amphetamines Screen POSITIVE H, MDMA (Ecstasy) Screen POSITIVE H, U Benzodiazepines Scrn NEGATIVE, Urine Cocaine Screen NEGATIVE, U Cannabinoids Screen NEGATIVE, Ur Drug Screen Comment 12/17/22 07:53: WBC 7.6, RBC 4.32 L, Hgb 12.0 L, Hct 37.8 L, MCV 87.5, MCH 27.8, MCHC 31.7 L, RDW Std Deviation 40.8, RDW Coeff of Chase 12.7, Plt Count 234, MPV 10.6, Immature Gran % (Auto) 0.400, Neut % (Auto) 72.3 H, Lymph % (Auto) 13.3 L, [place] % (Auto) 9.3, Eos % (Auto) 4.2, Baso % (Auto) 0.5, Absolute Neuts (auto) 5.5, Absolute Lymphs (auto) 1.01, Nucleated RBC % 0 12/17/22 07:53: Sodium 136, Potassium 4.1, Chloride 101, Carbon Dioxide 32.0, Anion Gap 3 L, BUN 11, Creatinine 0.78, Estim Creat Clear Calc 142.32, Est GFR (MDRD) Af Amer 144, Est GFR (MDRD) Non-Af 119, BUN/Creatinine Ratio 14.2, Glucose 107 H, Calcium 8.5, Total Bilirubin 0.20, AST 19, ALT 35, Alkaline Phosphatase 89, Total Protein 7.3, Albumin 2.9 L, Globulin 4.4 H, Albumin/Globulin Ratio 0.7 L Assessment & Plan Assessment/Plan (1) Opiate withdrawal: PLAN: Last use was at 2200 on December 16. Continue with buprenorphine taper plus additional agents to help with other withdrawal symptoms. Patient to be assessed by addiction medicine to facilitate outpatient program. Patient had been sober for roughly 5 months after his last hospitalization, which was year ago today. Patient does present here also with 2 other individuals for opiate withdrawal. (2) Abscess of left axilla: PLAN: Patient denies injecting into that area. Concern would be for MRSA. We will start the patient on Bactrim. Consult wound care for further recommendations. PLAN: Plan VTE prophylaxis: Low risk. Charges/Coding Visit Charges Inpatient E&M: 16672 Init Hosp L2
[2022-12-17 09:06] VITALS: BMI 26.6
[2022-12-17 09:11] VITALS: BP 142/95; PULSE 91; RESP 14; TEMP 36.9; O2SAT 99
--- NOTE | 2022-12-17 10:57 | WOUNDNOTE ---
wound photo: left axilla
[2022-12-17] MEDS: Smz/Tmp Ds Tablet 1 TABLET PO ×2 (10:58→16:09)
[2022-12-17 14:21] VITALS: BP 144/88; PULSE 70; RESP 13; TEMP 36.6; O2SAT 100
[2022-12-17 14:30] LABS: M R Staph aureus DNA By PCR POSITIVE (Negative); Probe Check PASS; Staph aureus DNA By PCR POSITIVE (Negative)
[2022-12-17 16:06] VITALS: BP 136/86; PULSE 71; RESP 16; TEMP 36.6; O2SAT 100
[2022-12-17 21:25] VITALS: BP 136/92; PULSE 75; RESP 16; TEMP 36.8; O2SAT 99
[2022-12-17] MEDS: Dicyclomine 10 MG Capsule 20 MG PO (21:37)
[2022-12-17] MEDS: Ibuprofen 600 MG Tablet PO (21:37)
[2022-12-18] MEDS: Buprenorphine HCl 2 MG TAB.SUBL SL ×3 (00:56→16:40)
[2022-12-18 03:00] VITALS: BP 130/97; PULSE 69; RESP 16; TEMP 36.8; O2SAT 99
[2022-12-18] MEDS: cloNIDine HCl 0.1 MG Tablet PO (03:08)
[2022-12-18] MEDS: hydrOXYzine PAM 25 MG Capsule 50 MG PO (03:08)
--- NOTE | 2022-12-18 07:42 | PCM.PN.HOSP ---
Reason for Visit Reason for Visit: Diagnoses Opioid use, unspecified with withdrawal (12/17/22) Cutaneous abscess of left axilla (12/17/22) Subjective Subjective Mumbles some words incoherently when asked how he is doing. Objective Data Objective Data Vital Signs: Vital Signs Temp Pulse Resp BP Pulse Ox O2 Del Method 36.8 C 69 16 130/97 H 99 Room Air 12/18/22 03:00 12/18/22 03:00 12/18/22 03:00 12/18/22 03:00 12/18/22 03:00 12/18/22 03:00 Oxygen Delivery Method Room Air Weight: 88.904 kg Body Mass Index (BMI) 26.6 Intake & Output: Intake and Output for Last 24 Hours 12/16/22 12/17/22 12/18/22 23:59 23:59 23:59 Intake Total 480 / 1080 900 / 900 Balance 480 / 1080 900 / 900 Lab / Micro Data Result Diagrams: 12/17/22 07:53 12/17/22 07:53 Labs: Laboratory Results - last 24 hr 12/17/22 07:32: Urine Opiates Screen NEGATIVE, Urine Methadone Screen NEGATIVE, Ur Barbiturates Screen NEGATIVE, Ur Phencyclidine Scrn NEGATIVE, Ur Amphetamines Screen POSITIVE H, MDMA (Ecstasy) Screen POSITIVE H, U Benzodiazepines Scrn NEGATIVE, Urine Cocaine Screen NEGATIVE, U Cannabinoids Screen NEGATIVE 12/17/22 07:53: WBC 7.6, RBC 4.32 L, Hgb 12.0 L, Hct 37.8 L, MCV 87.5, MCH 27.8, MCHC 31.7 L, RDW Std Deviation 40.8, RDW Coeff of [place] 12.7, Plt Count 234, MPV 10.6, Immature Gran % (Auto) 0.400, Neut % (Auto) 72.3 H, Lymph % (Auto) 13.3 L, [place] % (Auto) 9.3, Eos % (Auto) 4.2, Baso % (Auto) 0.5, Absolute Neuts (auto) 5.5, Absolute Lymphs (auto) 1.01, Nucleated RBC % 0 12/17/22 07:53: Sodium 136, Potassium 4.1, Chloride 101, Carbon Dioxide 32.0, Anion Gap 3 L, BUN 11, Creatinine 0.78, Estim Creat Clear Calc 142.32, Est GFR (MDRD) Af Amer 144, Est GFR (MDRD) Non-Af 119, BUN/Creatinine Ratio 14.2, Glucose 107 H, Calcium 8.5, Total Bilirubin 0.20, AST 19, ALT 35, Alkaline Phosphatase 89, Total Protein 7.3, Albumin 2.9 L, Globulin 4.4 H, Albumin/Globulin Ratio 0.7 L 12/17/22 10:10: S.aureus Protein A PCR POSITIVE H, MRSA (PCR) POSITIVE H Physical Exam Const Constitutional Narrative: Lying in bed. Will some words incoherently but appears to not intentionally want to get up when to interact. HEENT head/scalp atraumatic Extremity Extremity Narrative: Left axillary abscess shows less induration and erythema. Purulence expressed from the superior to the incision site. Was slightly tender to palpation. Assessment & Plan Assessment/Plan (1) Opiate withdrawal: PLAN: Last use was at 2200 on December 16. Continue with buprenorphine taper plus additional agents to help with other withdrawal symptoms. Patient to be assessed by addiction medicine to facilitate outpatient program. Patient had been sober for roughly 5 months after his last hospitalization, which was year ago today. Patient does present here also with 2 other individuals for opiate withdrawal. (2) Abscess of left axilla: PLAN: Patient denies injecting into that area. Concern would be for MRSA. We will start the patient on Bactrim. Consult wound care for further recommendations. Cx pending Swab positive for MRSA PLAN: Plan VTE prophylaxis: Low risk. Charges/Coding Visit Charges Inpatient E&M: 75280 Subs Hosp L1
[2022-12-18] MEDS: Smz/Tmp Ds Tablet 1 TABLET PO ×2 (08:48→16:40)
[2022-12-18 09:04] VITALS: BP 149/99; PULSE 74; RESP 12; TEMP 36.7; O2SAT 98
[2022-12-18 15:09] VITALS: BP 151/97; PULSE 79; RESP 14; TEMP 36.8; O2SAT 100
[2022-12-18 20:52] VITALS: BP 131/92; PULSE 83; RESP 17; TEMP 36.9; O2SAT 98
--- NOTE | 2022-12-18 23:46 | NURSING ---
2055 juan did assessment and charting not afua
[2022-12-19] MEDS: Buprenorphine HCl 2 MG TAB.SUBL SL ×3 (02:00→16:32)
[2022-12-19] MEDS: Dicyclomine 10 MG Capsule 20 MG PO (02:02)
[2022-12-19] MEDS: Acetaminophen 500 MG Tablet PO (02:02)
[2022-12-19 02:07] VITALS: BP 147/90; PULSE 81; RESP 17; TEMP 36.7; O2SAT 97
--- NOTE | 2022-12-19 07:25 | PCM.PN.HOSP ---
Reason for Visit Reason for Visit: Diagnoses Opioid use, unspecified with withdrawal (12/17/22) Cutaneous abscess of left axilla (12/17/22) Subjective Subjective Feels ok. Objective Data Objective Data Vital Signs: Vital Signs Temp Pulse Resp BP Pulse Ox O2 Del Method 36.7 C 81 17 147/90 H 97 Room Air 12/19/22 02:07 12/19/22 02:07 12/19/22 02:07 12/19/22 02:07 12/19/22 02:07 12/19/22 02:07 Oxygen Delivery Method Room Air Weight: 88.904 kg Body Mass Index (BMI) 26.6 Intake & Output: Intake and Output for Last 24 Hours 12/17/22 12/18/22 12/19/22 23:59 23:59 23:59 Intake Total 480 / 1080 1200 / 1520 1330 / 1330 Output Total 2600 / 2600 Balance 480 / 1080 1200 / 1520 -1270 / -1270 Lab / Micro Data Result Diagrams: 12/17/22 07:53 12/17/22 07:53 Micro: Microbiology 12/17/22 10:10 Wound - Axilla, Left Gram Stain - Final 12/17/22 10:10 Wound - Axilla, Left Wound Culture - Preliminary Staphylococcus aureus Physical Exam Const alert and no apparent distress HEENT head/scalp atraumatic and moist oral mucous membranes Extremity Extremity Narrative: left axillary abscess. no further purulence expressed. less indurated. Assessment & Plan Assessment/Plan (1) Opiate withdrawal: PLAN: Last use was at 2200 on December 16. Continue with buprenorphine taper plus additional agents to help with other withdrawal symptoms. Patient to be assessed by addiction medicine to facilitate outpatient program. Patient had been sober for roughly 5 months after his last hospitalization, which was year ago today. Patient does present here also with 2 other individuals for opiate withdrawal. Plan is for [facility] in [place] (2) Abscess of left axilla: PLAN: Patient denies injecting into that area. Concern would be for MRSA. We will start the patient on Bactrim. Consult wound care for further recommendations. Cx showing MRSA Swab positive for MRSA Continue bactrim through the . PLAN: Plan VTE prophylaxis: Low risk. Charges/Coding Visit Charges Inpatient E&M: 31600 Subs Hosp L2
[2022-12-19 08:00] VITALS: BP 156/107; PULSE 66; RESP 18; TEMP 36.6; O2SAT 97
[2022-12-19] MEDS: Smz/Tmp Ds Tablet 1 TABLET PO ×2 (08:07→16:32)
[2022-12-19] MEDS: cloNIDine HCl 0.1 MG Tablet PO ×2 (08:11→16:32)
--- NOTE | 2022-12-19 09:44 | ADDICTION ---
This travel writer met with PT to conduct ASAM, MSE, AUDIT, DUDIT assessments and to plan for d/c. PT A+Ox4 and participated actively. All assessments completed and placed in PT's chart. PT plans to f/u with [facility] for follow-up treatment services. PT did not indicate a need for transportation post d/c from [facility].
[2022-12-19 15:29] VITALS: BP 141/99; PULSE 76; RESP 18; TEMP 36.6; O2SAT 100
[2022-12-19] MEDS: Ibuprofen 600 MG Tablet PO (16:32)
[2022-12-19] MEDS: Gabapentin 300 MG Capsule PO (16:33)
[2022-12-19 20:00] VITALS: BP 139/97; PULSE 73; RESP 17; TEMP 36.7; O2SAT 99
[2022-12-20] MEDS: Buprenorphine HCl 2 MG TAB.SUBL SL (01:02)
[2022-12-20 02:00] VITALS: BP 118/96; PULSE 69; RESP 16; TEMP 36.5; O2SAT 98
[2022-12-20] MEDS: Gabapentin 300 MG Capsule PO (09:12)
[2022-12-20] MEDS: cloNIDine HCl 0.1 MG Tablet PO (09:12)
[2022-12-20] MEDS: hydrOXYzine PAM 25 MG Capsule 50 MG PO (09:12)
[2022-12-20] MEDS: Smz/Tmp Ds Tablet 1 TABLET PO (09:13)
[2022-12-20] MEDS: Dicyclomine 10 MG Capsule 20 MG PO (09:13)
[2022-12-20 09:18] VITALS: BP 152/108; PULSE 75; RESP 16; TEMP 36.9; O2SAT 98
--- NOTE | 2022-12-20 09:54 | DCINST_ITS ---
Discharge Instructions Diet Discharge Diet: No restrictions Activity Discharge Activity: Return to Normal Activity Dressing / Incision Call your doctor if your incision/area has: Continuous Slow Oozing, Sudden Increased Bleeding, Increased Pain/ Swelling, Increased Redness, Foul Smelling Discharge and Swelling at the incision site Call your doctor if you observe: Fever of 101 or Higher Follow Up Care Test Results: Test results from this visit will be discussed in further detail at your follow- up appointment, if applicable. Discharge Plan Admission Admit Date/Time: 12/17/22 08:50 Primary Reason for Your Visit: Opiate withdrawal. axiallary abscess. Attending Provider: Charly Piper Primary Care Provider: Care Physician,No Primary Instructions Additional Instructions / Restrictions: You had a left axillary (arm pit) abscess. It is doing better. Please take your antibiotics as instructed and complete them. If you notice any change, such as redness, increased pain or increased discharge, inform somebody or come back into the emergency room. Discharge Orders/Prescriptions Prescriptions: New sulfamethoxazole-trimethoprim 800-160 mg Tablet 1 tab PO BIDCM Qty: 7 0RF acetaminophen 500 mg Tablet 500 mg PO Q4H PRN PRN (Reason: Pain 1-10 or Temp > 100.4 F) Qty: 0 0RF ibuprofen 600 mg Tablet 600 mg PO Q8H PRN PRN (Reason: Pain Score 1-10) Qty: 0 0RF Referrals / Follow Up: Care Physician,No Primary [Primary Care Provider] - Disposition Disposition (needs filled in before D/C Order can be placed): Home, Self Care
--- NOTE | 2022-12-20 09:57 | PCM.DC.SUM ---
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 Continue with buprenorphine taper plus additional agents to help with other withdrawal symptoms. Patient to be assessed by addiction medicine to facilitate outpatient program. Patient had been sober for roughly 5 months after his last hospitalization, which was year ago today. Patient does present here also with 2 other individuals for opiate withdrawal. Plan is for [facility] in [place] (2) Abscess of left axilla: Status: Acute Code(s): L02.412 - Cutaneous abscess of left axilla Plan: Patient denies injecting into that area. Concern would be for MRSA. We will start the patient on Bactrim. Consult wound care for further recommendations. Cx showing MRSA Swab positive for MRSA Continue bactrim through the . Plan VTE prophylaxis: Low risk. Medications at Discharge Home Medications acetaminophen 500 mg tablet 500 mg PO Q4H PRN PRN Pain 1-10 or Temp > 100.4 F #0 tabs 12/20/22 ibuprofen 600 mg tablet 600 mg PO Q8H PRN PRN Pain Score 1-10 #0 tabs 12/20/22 sulfamethoxazole 800 mg-trimethoprim 160 mg tablet 1 tab PO BIDCM #7 tabs 12/20/22 Hospital Course Operations None Procedures None Summary of Care Provided Minutes Spent on Discharge: 28 Hospital Course: 37-year-old male presents seeking treatment for opiate withdrawal. Patient uses fentanyl. Patient was started on buprenorphine taper. Patient's withdrawal treatment was uncomplicated. Patient also had a left axillary abscess. It was I&D in the emergency room. Patient continued to have purulence expressed from that up until the past couple days. Still swollen but the induration and redness is greatly improved. Patient advised to return if he does notice any change. Patient did have MRSA that was sensitive to Bactrim. Patient instructed to continue that for total of 1 week, including the time that he is here in the hospital Physical Exam Const alert and no apparent distress Extremity Extremity Narrative: Still with some swelling in the left axilla but no further redness nor induration. Weight / BMI Weight Weight: 88.904 kg Body Mass Index (BMI) 26.6 ABG / Lab / Microbiology Data Result Diagrams: 12/17/22 07:53 12/17/22 07:53 Microbiology: Microbiology 12/17/22 10:10 Wound - Axilla, Left Gram Stain - Final 12/17/22 10:10 Wound - Axilla, Left Wound Culture - Final Meth. resistant Staph. aureus D/C Instructions Discharge Diet: No restrictions Call your doctor if your incision/area has: Continuous Slow Oozing, Sudden Increased Bleeding, Increased Pain/ Swelling, Increased Redness, Foul Smelling Discharge and Swelling at the incision site Call your doctor if you observe: Fever of 101 or Higher Meaningful Use Info Meaningful Use Diagnoses (Choose all that apply): None applicable Discharge Plan Admission Admit Date/Time: 12/17/22 08:50 Primary Reason for Your Visit: Opiate withdrawal. axiallary abscess. Attending Provider: Charly Piper Primary Care Provider: Care Physician,No Primary Instructions Additional Instructions / Restrictions: You had a left axillary (arm pit) abscess. It is doing better. Please take your antibiotics as instructed and complete them. If you notice any change, such as redness, increased pain or increased discharge, inform somebody or come back into the emergency room. Discharge Orders/Prescriptions Prescriptions: New sulfamethoxazole-trimethoprim 800-160 mg Tablet 1 tab PO BIDCM Qty: 7 0RF acetaminophen 500 mg Tablet 500 mg PO Q4H PRN PRN (Reason: Pain 1-10 or Temp > 100.4 F) Qty: 0 0RF ibuprofen 600 mg Tablet 600 mg PO Q8H PRN PRN (Reason: Pain Score 1-10) Qty: 0 0RF Referrals / Follow Up: Care Physician,No Primary [Primary Care Provider] - Disposition Disposition (needs filled in before D/C Order can be placed): Home, Self Care Charges/Coding Visit Charges Inpatient E&M: 82592 Disch Hosp
--- NOTE | 2022-12-20 10:19 | PHA.DC.MR ---
Pharmacy Service has performed discharge medication reconciliation for this patient. The patient's discharge medication list was reviewed for discrepancies and discrepancies were resolved. Home Medications acetaminophen 500 mg tablet 500 mg PO Q4H PRN PRN Pain 1-10 or Temp > 100.4 F #0 tabs 12/20/22 ibuprofen 600 mg tablet 600 mg PO Q8H PRN PRN Pain Score 1-10 #0 tabs 12/20/22 sulfamethoxazole 800 mg-trimethoprim 160 mg tablet 1 tab PO BIDCM #7 tabs 12/20/22
[2022-12-20 11:21] VITALS: BP 137/77; PULSE 74; RESP 18; TEMP 37.1; O2SAT 98
== END 2022-12-20 11:05 | disposition home or self-care (01) | DRG 772 ==
LOC: ED 07:47 → MS3 09:27
PROVIDERS: Emergency Provider Emergency Medicine
DX: F11.13 Opioid abuse with withdrawal (principal); F17.210 Nicotine dependence, cigarettes, uncomplicated; I10 Essential (primary) hypertension; L02.412 Cutaneous abscess of left axilla; B95.62 Methicillin resistant Staphylococcus aureus infection as the cause of diseases classified elsewhere
CPT/HCPCS: 36415; 80053; 80307; 85025; 87070; 87077; 87186; 87205; 87640; 99284; 99406